=== PATIENT | female | born 1985 | race Caucasian/White ===

== ENCOUNTER 2019-12-10 11:26 | Outpatient (REF) | payer OTHER, SELFPAY | END 2019-12-10 11:27 | disposition home or self-care (01) | LOC: HO.LAB 11:26 | PROVIDERS: Visit Provider Internal Medicine | DX: Z20.828 Contact with and (suspected) exposure to other viral communicable diseases (principal) | CPT/HCPCS: U0003 ==

== ENCOUNTER 2020-02-16 15:18 | Outpatient (REF) | payer OTHER, SELFPAY | END 2020-02-16 15:19 | disposition home or self-care (01) | LOC: HO.LAB 15:18 | PROVIDERS: Visit Provider Internal Medicine | DX: Z20.828 Contact with and (suspected) exposure to other viral communicable diseases (principal) | CPT/HCPCS: 36415; C9803; U0003 ==

== ENCOUNTER 2020-05-02 08:09 | Outpatient (REF) | payer OTHER, SELFPAY | END 2020-05-02 08:10 | disposition home or self-care (01) | LOC: HO.LAB 08:09 | PROVIDERS: Visit Provider Internal Medicine | DX: Z20.822 Contact with and (suspected) exposure to COVID-19 (principal) | CPT/HCPCS: 36415; C9803; U0003; U0005 ==

== ENCOUNTER 2020-05-11 08:22 | Outpatient (REF) | payer OTHER, SELFPAY ==
[2020-05-11 12:37] LABS: SARS COV2 PCR INHOUSE POSITIVE (Negative)
== END 2020-05-11 08:23 | disposition home or self-care (01) ==
LOC: HO.LAB 08:22
PROVIDERS: Visit Provider Internal Medicine
DX: Z20.822 Contact with and (suspected) exposure to COVID-19 (principal)
CPT/HCPCS: C9803; U0003

== ENCOUNTER 2021-09-07 12:24 | Outpatient (REF) | payer OTHER, SELFPAY ==
--- NOTE | ~2021-09-07 | US_ITS ---
EXAMINATION: US ABDOMEN COMPLETE CLINICAL INFORMATION: Epigastric pain. COMPARISON: None TECHNIQUE: Real-time imaging of the abdominal viscera. FINDINGS: PANCREAS: Normal. ABDOMINAL AORTA: The proximal, mid, and distal segments are normal in caliber. INFERIOR VENA CAVA: Visualized portions are normal. LIVER: Increased echogenicity of the liver parenchyma which is otherwise normal in size and shape without discrete focal lesion. No intrahepatic biliary duct dilatation. GALLBLADDER: Normal. The gallbladder is physiologically distended without evidence of stones, sludge, polyps, wall thickening or pericholecystic fluid. COMMON BILE DUCT: Normal in caliber measuring 0.5 cm in diameter. RIGHT KIDNEY: Normal. No hydronephrosis. No renal calculi or focal parenchymal lesions. The kidney measures 10.9 cm in maximum dimension. LEFT KIDNEY: Normal. No hydronephrosis. No renal calculi or focal parenchymal lesions. The kidney measures 9.8 cm in maximum dimension. SPLEEN: Normal. The spleen measures 10.3 cm in maximum dimension. FREE FLUID: None. US/US abdomen complete IMPRESSION: Increased liver parenchymal echogenicity suggesting hepatic steatosis. Correlate with liver function tests.
== END 2021-09-07 12:25 | disposition home or self-care (01) ==
LOC: HO.US 12:24
PROVIDERS: PCP Family Medicine; Visit Provider Family Medicine
DX: R10.13 Epigastric pain (principal)
CPT/HCPCS: 76700

== ENCOUNTER 2021-09-18 13:47 | Emergency (ER) | payer OTHER, SELFPAY ==
--- NOTE | ~2021-09-18 | CT_ITS ---
EXAMINATION: CT ABDOMEN AND PELVIS WITHOUT CONTRAST CLINICAL INFORMATION: Lower abdominal pain. Rule out diverticular disease. COMPARISON: Abdominal ultrasound 09/07/2021 TECHNIQUE: Multidetector volumetric imaging was performed from the superior aspect of the liver through the pubic symphysis. Sagittal and coronal reformatted images were obtained on the technologist's workstation. This CT examination was performed using dose optimization techniques as appropriate, variously including the following: *Automated exposure control *Adjustment of mA and/or kV according to patient size (this includes techniques or standardized protocols for targeted exams where dose is matched to indication/reason for exam; i.e. extremities or head) *Use of iterative reconstruction technique DLP: 876 mGy-cm FINDINGS: Visualized bases are well aerated. The liver demonstrates normal size, contour and attenuation. The gallbladder is normal in appearance. The pancreas, spleen and adrenal glands are unremarkable. Symmetrically sized kidneys. No renal calculi or hydronephrosis bilaterally. Normal caliber loops of small and large bowel. Mild colonic stool burden. Normal appendix. Normal caliber abdominal aorta. No retroperitoneal lymphadenopathy. The bladder is normal in appearance. Unremarkable CT appearance of the uterus. Suspected 3.3 cm right adnexal cyst. No gross free pelvic fluid. No inguinal lymphadenopathy. No acute osseous abnormality. CT/CT abdomen pelvis wo con IMPRESSION: -No CT evidence for acute abnormality within the abdomen or pelvis. -3.3 cm right adnexal cyst. This may be further evaluated with dedicated pelvic ultrasound if clinically indicated. Fleischner guidelines were followed.
--- NOTE | ~2021-09-18 | US_ITS ---
EXAM: Pelvic Ultrasound CLINICAL INDICATION: Left lower quadrant pain. COMPARISON: CT abdomen pelvis earlier this evening TECHNIQUE: The pelvis was evaluated using transabdominal and transvaginal imaging. Color Doppler imaging and spectral analysis of the bilateral ovaries was also performed. FINDINGS: The uterus measures 9.0 x 4.4 x 5.3 cm in longitudinal by AP by transverse dimension. The endometrial stripe is not thickened and measures 0.9 cm. Trace amount of fluid within the endocervical canal. The left ovary measures approximately 3.3 x 2.8 x 1.5 cm and is normal. The right ovary measures approximately 4.0 x 2.5 x 2.8 cm and contains a simple appearing 1.9 cm cyst. Spectral analysis reveals normal arterial and venous waveforms in the bilateral ovaries. There is no free fluid in the pelvis. US/US pelvic ovarian doppler IMPRESSION: -Normal thickness endometrial stripe. -1.9 cm simple appearing right ovarian cyst.
--- NOTE | ~2021-09-18 | US_ITS ---
EXAM: Pelvic Ultrasound CLINICAL INDICATION: Left lower quadrant pain. COMPARISON: CT abdomen pelvis earlier this evening TECHNIQUE: The pelvis was evaluated using transabdominal and transvaginal imaging. Color Doppler imaging and spectral analysis of the bilateral ovaries was also performed. FINDINGS: The uterus measures 9.0 x 4.4 x 5.3 cm in longitudinal by AP by transverse dimension. The endometrial stripe is not thickened and measures 0.9 cm. Trace amount of fluid within the endocervical canal. The left ovary measures approximately 3.3 x 2.8 x 1.5 cm and is normal. The right ovary measures approximately 4.0 x 2.5 x 2.8 cm and contains a simple appearing 1.9 cm cyst. Spectral analysis reveals normal arterial and venous waveforms in the bilateral ovaries. There is no free fluid in the pelvis. US/US pelvic and transvaginal IMPRESSION: -Normal thickness endometrial stripe. -1.9 cm simple appearing right ovarian cyst.
[2021-09-18 14:59] VITALS: BP 131/69; PULSE 63; RESP 16; TEMP 35.6; O2SAT 100; BMI 35.4
[2021-09-18 15:21] LABS: MANUAL DIFF FLAG NO
[2021-09-18 15:22] LABS: Basophils Percent Auto 0.2 % (0-2); Eosinophils Absolute Auto 0.1 X10*3/uL (0.0-0.4); Eosinophils Percent Auto 1.3 % (0-4); Hematocrit 42.1 % (37.0-47.0); Hemoglobin 13.5 g/dl (12.0-16.0); Imm Gran Abs Auto 0.03 X10*3/uL (0.00-0.03); Imm Gran Pct Auto 0.3 % (0.0-0.4); Lymphocytes Absolute Auto 1.9 X10*3/uL (1.2-4.9); Lymphocytes Percent Auto 20.4 % (20-40); Mean Corpuscular HGB Conc 32.1 g/dl (31.0-35.0); Mean Corpuscular Hemoglobin 27.6 pg (27.0-33.0); Mean Corpuscular Volume 86.1 fL (80.0-98.0); Mean Platelet Volume 9.6 fL (9.4-12.3); Monocytes Absolute Auto 0.7 X10*3/uL (0.1-1.2); Monocytes Percent Auto 7.8 % (2-11); Neutrophils Absolute Auto 6.6 x10*3/uL (2.0-8.3); Platelet Count 236 X10*3/uL (160-400); Red Blood Count 4.89 X10*6/uL (4.20-5.50); Red Cell Distribution Width 12.6 % (11.0-16.0); White Blood Count 9.4 X10*3/uL (4.8-10.8)
[2021-09-18 15:44] LABS: Alanine Aminotransferase 12 U/L (0-31); Albumin Level 3.9 g/dL (3.5-5.0); Alkaline Phosphatase 76 U/L (39-117); Anion Gap 12 (12-20); Aspartate Amino Transferase 18 U/L (5-31); Bilirubin Direct < 0.2 mg/dL (0.0-0.5); Bilirubin Total 0.3 mg/dL (0.0-1.0); Blood Urea Nitrogen 15 mg/dL (9-16); Calcium 8.7 mg/dL (8.4-10.2); Carbon Dioxide 29 mmol/L (22-29); Chloride 104 mmol/L (96-108); Estimated Glomerular Filt Rate > 60; Glucose Random 89 mg/dL (60-115); Potassium 5.1 mmol/L (3.3-5.1); Sodium 140 mmol/L (135-145); Total Protein 6.8 g/dL (6.5-8.0)
--- NOTE | 2021-09-18 16:35 | ED.ABDPAIN ---
HPI - Abdominal Pain General Chief Complaint: Abdominal Pain Stated Complaint: Abd pain Time Seen by Provider: 09/18/21 16:34 Source: patient Mode of arrival: ambulatory Limitations: no limitations History of Present Illness HPI narrative: 35-year-old female came in for evaluation of abdominal pain. Left lower quadrant abdominal pain started 7-10 days ago pain is localized to the left lower quadrant, pain also radiates to the epigastric and the right upper quadrant area, pain has been constant, increased with movement or if the patient trying to feel her abdomen hurts, no relieving factor, pain is dull aching. No dysuria, no urinary frequency, no fever, no chills. No vaginal discharge or vaginal bleed, patient declined chance of being because had a history of tubal ligation. Abdominal surgery is significant for fibroid removal and tubal ligation. Patient had previous evaluation of this abdominal pain by her PCP and had outpatient ultrasound 10 days ago which was unremarkable except for possible hepatic steatosis. Related Data Previous Rx's Medication Instructions Recorded nitrofurantoin 100 mg PO BID #14 caps 09/18/21 monohydrate/macrocrystals 100 mg capsule (Macrobid) Allergies Allergy/AdvReac Type Severity Reaction Status Date / Time No Known Allergies Allergy Verified 09/18/21 14:56 Review of Systems Review of Systems All other systems are reviewed and are negative Constitutional: Reports as per HPI and Reports no additional constitutional complaints Eyes: Reports as per HPI and Reports no additional eye complaints Reports system reviewed and no additional complaints, except as documented Cardiovascular: Reports as per HPI and Reports no additional cardiovascular complaints Respiratory: Reports as per HPI and Reports no additional respiratory complaints Gastrointestinal: Reports as per HPI and Reports no additional gastrointestinal complaints Genitourinary: Reports no additional female genitourinary complaints Musculoskeletal: Reports no additional musculoskeletal complaints Skin/Breast: Reports system reviewed and no additional complaints, except as docu Psychiatric: Reports no additional psychiatric complaints Endocrine: Reports no additional endocrine complaints Hematologic/Lymphatic: Reports no additional hematologic/lymphatic complaints Allergic/Immunologic: Reports no additional allergic/immunologic complaints Reports system reviewed and no additional complaints, except as documented and Reports Abnormal speech present [facility] Social History Social History Advance Directives: No Advance Directives Information Provided: Yes Physical Exam ED Vital Signs: Vital Signs - 24 hr 09/18/21 14:59 09/18/21 20:15 Temperature 96.1 F L 98.1 F Pulse Rate 63 58 Respiratory Rate 16 20 Blood Pressure 131/69 121/71 Pulse Oximetry 100 100 Oxygen Delivery Method Room Air Room Air BMI result Body Mass Index 35.4 Vital signs have been reviewed as appeared to be correct. Blood pressure normal. Heart rate normal. Respiration rate normal. Temperature normal. Oxygen saturation normal. Appearance: Alert. Oriented X3. No acute distress. Head: Normal external exam. Normocephalic. Atraumatic. No [place] signs noted. No raccoon eyes noted Eyes: PERRLA. EOMI. Conjunctiva and sclera normal. Eyelids normal. ENT: TM's Normal. Pharynx normal. Uvula midline. Moist mucous membranes. No trismus noted. No drooling noted. No muffled voice noted. Neck: Normal inspection. Neck supple. FROM. No adenopathy. Thyroid Normal. No meningeal signs. No neck mass noted. CVS: Normal heart rate and rhythm. Heart sound normal. No murmurs noted. Pulses normal throughout. Respiratory: No respiratory distress. Painless inspiration. Breath sounds normal. No wheezes/rales/rhonchi noted. Chest nontender. No accessory muscle usage noted or decreased air movement noted. Abdomen: Soft, left lower quadrant tenderness on deep palpation with no guarding or rebound tenderness.. Bowel sounds normal in all 4 quadrants. No distention noted. No organomegaly noted. No visible injury noted. Back: No CVA tenderness. Full range of motion noted. Skin: Skin warm and dry. Normal skin color. Normal skin turgor. No rashes/lesions/lacerations noted. Extremities: No lower extremity edema. Extremities exhibit normal range of motion. Extremities nontender. Neuro: Oriented X 3. Cranial nerve exam: II-XII are grossly intact No motor deficit. No sensory deficit. Reflexes normal. Course Course Course Narrative: 35-year-old female came in for evaluation of left lower quadrant abdominal pain for 7-10 days, patient had CT of the abdomen pelvis which showed no acute intra-abdominal pathology ultrasound showed right very small cyst with good blood supply to both ovaries, labs only revealing mild UTI, will discharge the patient on Macrobid twice a day and encouraged to drink plenty of fluids. MDM - Abdominal Pain Lab Data Attestation: I reviewed the patient's lab results. Result diagrams: 09/18/21 15:13 09/18/21 15:13 Labs: Lab Results 09/18/21 09/18/21 09/18/21 Range/Units 15:13 15:13 17:46 WBC 9.4 (4.8-10.8) X10*3/uL RBC 4.89 (4.20-5.50) X10*6/uL Hgb 13.5 (12.0-16.0) g/dl Hct 42.1 (37.0-47.0) % MCV 86.1 (80.0-98.0) fL MCH 27.6 (27.0-33.0) pg MCHC 32.1 (31.0-35.0) g/dl RDW 12.6 (11.0-16.0) % Plt Count 236 (160-400) X10*3/uL MPV 9.6 (9.4-12.3) fL Immature Gran % (Auto) 0.3 (0.0-0.4) % Neut % (Auto) 70.0 (45-73) % Lymph % (Auto) 20.4 (20-40) % [place] % (Auto) 7.8 (2-11) % Eos % (Auto) 1.3 (0-4) % Baso % (Auto) 0.2 (0-2) % Lymph # (Auto) 1.9 (1.2-4.9) X10*3/uL [place] # (Auto) 0.7 (0.1-1.2) X10*3/uL Eos # (Auto) 0.1 (0.0-0.4) X10*3/uL Baso # (Auto) 0.0 (0.0-0.2) X10*3/uL Abs Immat Gran (auto) 0.03 (0.00-0.03) X10*3/uL Absolute Neuts (auto) 6.6 (2.0-8.3) x10*3/uL Absolute Nucleated RBC 0.000 (0.0-0.012) X10*3/uL Nucleated RBC % (auto) 0.0 (0.0-0.2) /100WBC Sodium 140 (135-145) mmol/L Potassium 5.1 (3.3-5.1) mmol/L Chloride 104 (96-108) mmol/L Carbon Dioxide 29 (22-29) mmol/L Anion Gap 12 (12-20) BUN 15 (9-16) mg/dL Creatinine 0.77 (0.5-1.4) mg/dL Estim Creat Clear Calc 108.0 Estimated GFR > 60 Random Glucose 89 (60-115) mg/dL Calcium 8.7 (8.4-10.2) mg/dL Total Bilirubin 0.3 (0.0-1.0) mg/dL Direct Bilirubin < 0.2 (0.0-0.5) mg/dL AST 18 (5-31) U/L ALT 12 (0-31) U/L Alkaline Phosphatase 76 (39-117) U/L Total Protein 6.8 (6.5-8.0) g/dL Albumin 3.9 (3.5-5.0) g/dL Urine Color YELLOW Urine Appearance CLOUDY Urine pH 6.5 (5.0-8.0) Ur Specific [place] 1.025 (1.005-1.025) Urine Protein TRACE (NEG-TRACE) MG/DL Urine Glucose (UA) NEG (NEG) MG/DL Urine Ketones NEG (NEG) MG/DL Urine Blood NEG (NEG) Urine Nitrite POS H (NEG) Ur Leukocyte Esterase 2+ H (NEG) Urine RBC 1-4 (0) /HPF Urine WBC 10-14 H (0-4) /HPF Urine WBC Clumps Present Ur Squamous Epith Cells 1+ /LPF Urine Bacteria 4+ /LPF Urine Mucus TRACE /LPF Urine Test (NEGATIVE) 09/18/21 Range/Units 17:46 WBC (4.8-10.8) X10*3/uL RBC (4.20-5.50) X10*6/uL Hgb (12.0-16.0) g/dl Hct (37.0-47.0) % MCV (80.0-98.0) fL MCH (27.0-33.0) pg MCHC (31.0-35.0) g/dl RDW (11.0-16.0) % Plt Count (160-400) X10*3/uL MPV (9.4-12.3) fL Immature Gran % (Auto) (0.0-0.4) % Neut % (Auto) (45-73) % Lymph % (Auto) (20-40) % [place] % (Auto) (2-11) % Eos % (Auto) (0-4) % Baso % (Auto) (0-2) % Lymph # (Auto) (1.2-4.9) X10*3/uL [place] # (Auto) (0.1-1.2) X10*3/uL Eos # (Auto) (0.0-0.4) X10*3/uL Baso # (Auto) (0.0-0.2) X10*3/uL Abs Immat Gran (auto) (0.00-0.03) X10*3/uL Absolute Neuts (auto) (2.0-8.3) x10*3/uL Absolute Nucleated RBC (0.0-0.012) X10*3/uL Nucleated RBC % (auto) (0.0-0.2) /100WBC Sodium (135-145) mmol/L Potassium (3.3-5.1) mmol/L Chloride (96-108) mmol/L Carbon Dioxide (22-29) mmol/L Anion Gap (12-20) BUN (9-16) mg/dL Creatinine (0.5-1.4) mg/dL Estim Creat Clear Calc Estimated GFR Random Glucose (60-115) mg/dL Calcium (8.4-10.2) mg/dL Total Bilirubin (0.0-1.0) mg/dL Direct Bilirubin (0.0-0.5) mg/dL AST (5-31) U/L ALT (0-31) U/L Alkaline Phosphatase (39-117) U/L Total Protein (6.5-8.0) g/dL Albumin (3.5-5.0) g/dL Urine Color Urine Appearance Urine pH (5.0-8.0) Ur Specific [place] (1.005-1.025) Urine Protein (NEG-TRACE) MG/DL Urine Glucose (UA) (NEG) MG/DL Urine Ketones (NEG) MG/DL Urine Blood (NEG) Urine Nitrite (NEG) Ur Leukocyte Esterase (NEG) Urine RBC (0) /HPF Urine WBC (0-4) /HPF Urine WBC Clumps Ur Squamous Epith Cells /LPF Urine Bacteria /LPF Urine Mucus /LPF Urine Test NEGATIVE (NEGATIVE) Imaging Data Abdomen CT: Attestation: I personally reviewed and interpreted this imaging study as follows: Radiologist's impression: -No CT evidence for acute abnormality within the abdomen or pelvis. -3.3 cm right adnexal cyst. This may be further evaluated with dedicated pelvic ultrasound if clinically indicated.? ? Ovarian ultrasound: Attestation: I personally reviewed and interpreted this imaging study as follows: Radiologist's impression: -Normal thickness endometrial stripe. -1.9 cm simple appearing right ovarian cyst. ? Discharge Plan Discharge Clinical Impression: UTI (urinary tract infection), Abdominal pain, Ovarian cyst Patient Disposition: Home, Self-Care Instructions: Ovarian Cyst (ED), Urinary Tract Infection in Women (ED) Prescriptions: New nitrofurantoin monohyd/m-cryst [Macrobid] 100 mg capsule 100 mg PO BID Qty: 14 0RF Rx Instructions: must administer with a meal/food Referrals: Maisha White DO [Primary Care Provider] -
[2021-09-18 17:54] LABS: UPreg QC Valid YES; Urine Pregnancy NEGATIVE (NEGATIVE)
[2021-09-18 17:57] LABS: Appearance Urine CLOUDY; Color Urine YELLOW; Glucose Urine UA NEG (NEG); Leukocyte Esterase Urine 2+ (NEG); Nitrite Urine POS (NEG); PH 6.5 (5.0-8.0); Specific Gravity - Urine 1.025 (1.005-1.025); UACC Culture Trigger YES; Urine Blood NEG (NEG); Urine Ketones NEG (NEG); Urine Protein TRACE MG/DL (NEG-TRACE)
[2021-09-18 18:16] LABS: Bacteria Urine 4+ /LPF; Mucus Urine TRACE /LPF; Squamous Epithelial Cell Urine 1+ /LPF; WBC Clumps Urine Present
[2021-09-18 20:15] VITALS: BP 121/71; PULSE 58; RESP 20; TEMP 36.7; O2SAT 100
[2021-09-18] MEDS: Nitrofurantoin Monohyd/M-Cryst 100 MG CAPSULE PO (21:44)
--- NOTE | 2021-09-18 21:47 | PC.NURSE ---
Medicated per Apr. Reviewed discharge instructions with Pt. pt verbalized understanding. Notified pt TEJA Alonzo.
== END 2021-09-18 21:49 | disposition home or self-care (01) ==
PROVIDERS: Emergency Provider Emergency Medicine; PCP Family Medicine
DX: N39.0 Urinary tract infection, site not specified (principal); B96.20 Unspecified Escherichia coli [E. coli] as the cause of diseases classified elsewhere; N83.201 Unspecified ovarian cyst, right side; R10.32 Left lower quadrant pain
CPT/HCPCS: 36415; 74176; 76830; 76856; 80048; 80076; 81001; 81025; 85025; 87086; 87088; 87186; 93975; 99283; 99284

== ENCOUNTER 2022-08-26 11:36 | Outpatient (AMB) | payer MEDICAID, SELFPAY ==
--- NOTE | 2022-08-26 11:49 | A.OFFVIS_ITS ---
Intake Vital Signs 08/26/22 11:52 Height 5 ft 3 in Weight 214 lb BMI 37.9 BP 109/62 Blood Pressure Location Lt brachial Position Sitting Pulse 65 Intake Visit Reasons: Epigastric pain Intake Note: Patient follow up for epigastric pain. Patient cc: abdominal pain/bloating, GERD, and dysphagia on and off. 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 Accompanied by: Self / Same As Patient Allergies No Known Allergies Allergy (Verified 08/26/22 11:49) Medication List - Last Reconciled 08/26/22 by Mireille Lockett PA-C HPI HPI Comments History of Present Illness Details A 36 y/o female with history ulcer--hx h.pylori- EGD many years ago- she has epigastric pain intermittently,- bloating acid reflux- Pepcid- not effective-in nothing specific makes it better or worse-of frequent n ausea for the past couple months Belching, appetite is good no nausea or vomiting Bowels are normal Feels something moving in belly- had a TL years ago LMP 06/2022-have been irregular No nausea, vomiting, hematemesis, hematochezia fever chills PFSH Surgical History Hx of removal of cyst Hx of tubal ligation Family History Father Cancer Paternal Aunt Cancer Paternal Grandmother Cancer of abdominal wall Mother Uterus cancer Abdominal tumor Social History (Updated 08/26/22 @ 12:11 by Mireille Lockett PA-C) Household Members: Family Alcohol intake: current Alcohol intake frequency: holidays/special occasions only Patient Tobacco Use Status: Never used Tobacco Use of substances other than those prescribed or required for medical reasons: No 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 occupational 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 Review of Systems Const All systems reviewed & are unremarkable except as noted in HPI and below Card Denies chest pain and Denies dyspnea Resp Denies dyspnea GI Reports abdominal pain (epigastric ), Reports belching, Reports bloating, Denies hematochezia, Denies change in bowel habits, Reports dyspepsia, Reports nausea and Denies vomiting Reports abnormal menses Physical Exam Vital Signs: Last Vital Signs Pulse 65 08/26/22 11:52 BP 109/62 08/26/22 11:52 BMI result Body Mass Index 37.9 Const General: cooperative, healthy appearing and no acute distress Nutritional Appearance: overweight Orientation/consciousness: patient oriented x3 Limitations: no limitations Eyes Sclerae: sclerae normal Resp Effort & Inspection: normal respiratory effort and able to speak in complete sentences Auscultation: clear to auscultation bilaterally and no wheezes Cardio Rate: regular rate Rhythm: regular rhythm Heart sounds: S1 normal heart sound present and S2 normal heart sound present GI Palpation (GI): Soft to palpation and nontender Auscultation: normal bowel sounds Neuro General: patient oriented x3 Psych Appearance: grossly normal and well kempt Mental Status: mental status grossly normal Speech and movement: Normal speech and movement present and Clear speech present Affect: normal affect Attitude: cooperative Thought process: Normal thought process present Thought content: Normal thought content present Results Reviewed Results Reviewed: No recent labs Assessment & Plan Assessment & Plan (1) Epigastric abdominal pain: Comment: Nontender on exam CBC, CMP Code(s): R10.13 - Epigastric pain (2) Bloating: Comment: Check H pylori Code(s): R14.0 - Abdominal distension (gaseous) Plan: FODMAP (3) Missed menses: Comment: HCG, less likely has had tubal Code(s): N92.6 - Irregular menstruation, unspecified Plan H pylori stool antigen-if positive will treat After sample submitted begin omeprazole 20 mg daily Reflux precautions reviewed CBC CMP to assess for white count and liver enzymes HCG, low yield Orders: Orders Comprehensive Met. Panel 08/26/22 K58.9 - Irritable bowel syndrome without diarrhea Complete Blood Count Auto Diff 08/26/22 K52.9 - Noninfective gastroenteritis and colitis, unspecified H pylori Ag Stool 08/26/22 A04.8 - Other specified bacterial intestinal infections HCG Quantitative 08/26/22 N92.6 - Irregular menstruation, unspecified, R10.13 - Epigastric pain, R11.0 - Nausea Medications: New omeprazole 20 mg PO DAILY 30 caps 5RF Patient Instructions: H pylori stool antigen-if positive will treat After sample submitted begin omeprazole 20 mg daily Reflux precautions reviewed CBC CMP to assess for white count and liver enzymes HCG, low yield He encouraged to call with questions or concerns Appreciate the opportunity to assist in the care of the patient Coding Level of Care Code New Pt Level 3 (95052) Diagnoses Epigastric abdominal pain R10.13 Bloating R14.0 Missed menses N92.6 Time Spent (min) 30
[2022-08-26 11:52] VITALS: BP 109/62; PULSE 65; BMI 37.9
== END 2022-08-26 13:00 | disposition home or self-care (01) ==
PROVIDERS: PCP Internal Medicine; Visit Provider Physician Assistant
DX: R10.13 Epigastric pain (principal); R14.0 Abdominal distension (gaseous); N92.6 Irregular menstruation, unspecified
CPT/HCPCS: 99203

== ENCOUNTER → 2022-08-26 11:36 | Outpatient (BNVA) | payer MEDICAID, SELFPAY | PROVIDERS: PCP Internal Medicine; Visit Provider Physician Assistant | DX: R10.13 Epigastric pain (principal); R14.0 Abdominal distension (gaseous); N92.6 Irregular menstruation, unspecified | CPT/HCPCS: 99203 ==

== ENCOUNTER 2022-08-29 10:20 | Outpatient (REF) | payer MEDICAID, SELFPAY ==
[2022-08-29 10:32] LABS: MANUAL DIFF FLAG NO
[2022-08-29 10:52] LABS: Basophils Percent Auto 0.3 % (0-2); Eosinophils Absolute Auto 0.1 X10*3/uL (0.0-0.4); Hematocrit 44.5 % (37.0-47.0); Hemoglobin 14.4 g/dl (12.0-16.0); Imm Gran Abs Auto 0.02 X10*3/uL (0.00-0.03); Imm Gran Pct Auto 0.3 % (0.0-0.4); Lymphocytes Absolute Auto 1.6 X10*3/uL (1.2-4.9); Lymphocytes Percent Auto 22.3 % (20-40); Mean Corpuscular HGB Conc 32.4 g/dl (31.0-35.0); Mean Corpuscular Hemoglobin 27.9 pg (27.0-33.0); Mean Corpuscular Volume 86.2 fL (80.0-98.0); Mean Platelet Volume 9.6 fL (9.4-12.3); Monocytes Absolute Auto 0.6 X10*3/uL (0.1-1.2); Monocytes Percent Auto 8.6 % (2-11); Neutrophils Absolute Auto 4.9 x10*3/uL (2.0-8.3); Neutrophils Percent Auto 67.5 % (45-73); Platelet Count 245 X10*3/uL (160-400); Red Blood Count 5.16 X10*6/uL (4.20-5.50); Red Cell Distribution Width 12.2 % (11.0-16.0); White Blood Count 7.3 X10*3/uL (4.8-10.8)
[2022-08-29 14:00] LABS: Alanine Aminotransferase 12 U/L (0-31); Albumin Level 3.9 g/dL (3.5-5.0); Alkaline Phosphatase 65 U/L (39-117); Anion Gap 13 (12-20); Aspartate Amino Transferase 16 U/L (5-31); Bilirubin Total 0.5 mg/dL (0.0-1.0); Blood Urea Nitrogen 14 mg/dL (9-16); Calcium 9.5 mg/dL (8.4-10.2); Carbon Dioxide 25 mmol/L (22-29); Chloride 103 mmol/L (96-108); Estimated Glomerular Filt Rate > 60; Glucose Random 85 mg/dL (60-115); Sodium 137 mmol/L (135-145); Total Protein 7.2 g/dL (6.5-8.0)
[2022-08-29 16:01] LABS: HCG Quantitative < 2 mIU/mL
== END 2022-08-29 10:21 | disposition home or self-care (01) ==
LOC: HO.LAB 10:20
PROVIDERS: Visit Provider Physician Assistant
DX: R10.13 Epigastric pain (principal); N92.6 Irregular menstruation, unspecified; R11.0 Nausea; K52.9 Noninfective gastroenteritis and colitis, unspecified
CPT/HCPCS: 36415; 80053; 84702; 85025

== ENCOUNTER 2022-09-04 11:56 | Emergency (ER) | payer MEDICAID, SELFPAY ==
[2022-09-04 12:00] VITALS: BP 145/85; PULSE 78; RESP 18; TEMP 36.6; O2SAT 98; BMI 33.7
--- NOTE | 2022-09-04 12:00 | ED.FEMALEGU ---
HPI - Female Genitourinary General Chief complaint: Vaginal Bleeding Stated complaint: vaginal discharge is black Related Data Previous Rx's Medication Instructions Recorded omeprazole 20 mg capsule,delayed 20 mg PO DAILY #30 caps 08/26/22 release Allergies Allergy/AdvReac Type Severity Reaction Status Date / Time No Known Allergies Allergy Verified 09/04/22 12:00 [facility] [place] Past Medical History Surgical History Hx of removal of cyst Hx of tubal ligation Family History Family History Father Cancer Paternal Aunt Cancer Paternal Grandmother Cancer of abdominal wall Mother Uterus cancer Abdominal tumor Social History Social History (Updated 08/26/22 @ 12:11 by Mireille Lockett PA-C) Household Members: Family Alcohol intake: current Alcohol intake frequency: holidays/special occasions only Patient Tobacco Use Status: Never used Tobacco Advance Directives: No Advance Directives Information Provided: No Current occupational status: employed 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 Called her [facility] at [facility] who told her to come to the ER for evaluation. Plan: basic labs, UA and exam in the ER Reevaluation(s) Reevaluation #1: patient eloped prior to full evaluation and treatment Medical Decision Making Lab Data 09/04/22 13:59 09/04/22 13:59 Labs: Lab Results 09/04/22 09/04/22 Range/Units 13:59 13:59 WBC 8.8 (4.8-10.8) X10*3/uL RBC 5.09 (4.20-5.50) X10*6/uL Hgb 14.4 (12.0-16.0) g/dl Hct 45.0 (37.0-47.0) % MCV 88.4 (80.0-98.0) fL MCH 28.3 (27.0-33.0) pg MCHC 32.0 (31.0-35.0) g/dl RDW 12.1 (11.0-16.0) % Plt Count 256 (160-400) X10*3/uL MPV 9.5 (9.4-12.3) fL Immature Gran % (Auto) 0.3 (0.0-0.4) % Neut % (Auto) 66.3 (45-73) % Lymph % (Auto) 24.4 (20-40) % [place] % (Auto) 7.4 (2-11) % Eos % (Auto) 1.4 (0-4) % Baso % (Auto) 0.2 (0-2) % Lymph # (Auto) 2.1 (1.2-4.9) X10*3/uL [place] # (Auto) 0.7 (0.1-1.2) X10*3/uL Eos # (Auto) 0.1 (0.0-0.4) X10*3/uL Baso # (Auto) 0.0 (0.0-0.2) X10*3/uL Abs Immat Gran (auto) 0.03 (0.00-0.03) X10*3/uL Absolute Neuts (auto) 5.8 (2.0-8.3) x10*3/uL Absolute Nucleated RBC 0.000 (0.0-0.012) X10*3/uL Nucleated RBC % (auto) 0.0 (0.0-0.2) /100WBC Sodium 143 (135-145) mmol/L Potassium 4.7 (3.3-5.1) mmol/L Chloride 108 (96-108) mmol/L Carbon Dioxide 31 H (22-29) mmol/L Anion Gap 9 L (12-20) BUN 13 (9-16) mg/dL Creatinine 0.86 (0.5-1.4) mg/dL Estim Creat Clear Calc 93.2 Estimated GFR > 60 Random Glucose 93 (60-115) mg/dL Calcium 8.9 D (8.4-10.2) mg/dL Magnesium 2.1 (1.6-2.6) mg/dL Total Bilirubin 0.3 (0.0-1.0) mg/dL Direct Bilirubin 0.1 (0.0-0.5) mg/dL AST 17 (5-31) U/L ALT 13 (0-31) U/L Alkaline Phosphatase 71 (39-117) U/L Total Protein 7.1 (6.5-8.0) g/dL Albumin 3.8 (3.5-5.0) g/dL Discharge Plan Discharge Clinical Impression: Vaginal bleeding Patient Disposition: Elopement Prescriptions: No Action omeprazole 20 mg capsule,delayed release(DR/EC) 20 mg PO DAILY Qty: 30 5RF Discharge Date/Time: 09/04/22 18:09
[2022-09-04 14:04] LABS: MANUAL DIFF FLAG NO
[2022-09-04 14:09] LABS: Basophils Percent Auto 0.2 % (0-2); Eosinophils Absolute Auto 0.1 X10*3/uL (0.0-0.4); Eosinophils Percent Auto 1.4 % (0-4); Hemoglobin 14.4 g/dl (12.0-16.0); Imm Gran Abs Auto 0.03 X10*3/uL (0.00-0.03); Imm Gran Pct Auto 0.3 % (0.0-0.4); Lymphocytes Absolute Auto 2.1 X10*3/uL (1.2-4.9); Lymphocytes Percent Auto 24.4 % (20-40); Mean Corpuscular Hemoglobin 28.3 pg (27.0-33.0); Mean Corpuscular Volume 88.4 fL (80.0-98.0); Mean Platelet Volume 9.5 fL (9.4-12.3); Monocytes Absolute Auto 0.7 X10*3/uL (0.1-1.2); Monocytes Percent Auto 7.4 % (2-11); Neutrophils Absolute Auto 5.8 x10*3/uL (2.0-8.3); Neutrophils Percent Auto 66.3 % (45-73); Platelet Count 256 X10*3/uL (160-400); Red Blood Count 5.09 X10*6/uL (4.20-5.50); Red Cell Distribution Width 12.1 % (11.0-16.0); White Blood Count 8.8 X10*3/uL (4.8-10.8)
[2022-09-04 14:25] LABS: Alanine Aminotransferase 13 U/L (0-31); Albumin Level 3.8 g/dL (3.5-5.0); Alkaline Phosphatase 71 U/L (39-117); Anion Gap 9 (12-20); Aspartate Amino Transferase 17 U/L (5-31); Bilirubin Direct 0.1 mg/dL (0.0-0.5); Bilirubin Total 0.3 mg/dL (0.0-1.0); Blood Urea Nitrogen 13 mg/dL (9-16); Calcium 8.9 mg/dL (8.4-10.2); Carbon Dioxide 31 mmol/L (22-29); Chloride 108 mmol/L (96-108); Creatinine Clr Calc Pharmacy 93.2; Estimated Glomerular Filt Rate > 60; Glucose Random 93 mg/dL (60-115); Magnesium 2.1 mg/dL (1.6-2.6); Potassium 4.7 mmol/L (3.3-5.1); Sodium 143 mmol/L (135-145); Total Protein 7.1 g/dL (6.5-8.0)
== END 2022-09-04 18:09 | disposition left against medical advice (07) ==
LOC: HO.ED 18:06
PROVIDERS: Physician Assistant; Emergency Provider Emergency Medicine
DX: N93.9 Abnormal uterine and vaginal bleeding, unspecified (principal); R10.9 Unspecified abdominal pain
CPT/HCPCS: 36415; 80048; 80076; 83735; 85025; 99281; 99283

== ENCOUNTER 2022-12-30 09:40 | Emergency (ER) | payer MEDICAID, SELFPAY ==
[2022-12-30 10:04] VITALS: BP 146/103; PULSE 68; RESP 18; TEMP 36.4; O2SAT 99; BMI 33.7
--- NOTE | 2022-12-30 11:03 | ED_ITS ---
HPI - URI/Sore Throat General Chief Complaint: Upper Respiratory Symptoms Stated Complaint: sore throat ear pain chest congestion Time Seen by Provider: 12/30/22 10:23 Source: patient Mode of arrival: ambulatory Limitations: no limitations History of Present Illness HPI Narrative: 37-year-old female with a history of asthma presents today for evaluation of 4 days of sore throat. She denies fevers, chills, headaches, GI upset. She reports a cough without sputum and associated anterior wall chest tenderness. She reports shortness of breath through which she is using albuterol rescue inhaler and a nebulizer with good affect. No chest pain or palpitations at rest. No lightheadedness syncope or visual changes. 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 Pertinent past history: asthma Onset (ago): day(s) Consistency: constant Severity: moderate Exacerbating factors: swallowing Context: sick contacts Related Data Previous Rx's Medication Instructions Recorded omeprazole 20 mg capsule,delayed 20 mg PO DAILY #30 caps 08/26/22 release Magic Mouthwash 5 ml PO TID #240 mL 12/30/22 Diphen/Lido/Antacid 1:1:1 240 mL suspension albuterol sulfate 90 mcg/actuation 2 inh inhalation Q4-6H PRN 12/30/22 breath activated powder inhaler shortness of breath or wheezing #1 ea fluticasone propionate 50 1 spray intranasal DAILY #16 grams 12/30/22 mcg/actuation nasal spray,suspension (Flonase Allergy Relief) prednisone 20 mg tablet 40 mg (2 x 20 mg) PO DAILY 5 days 12/30/22 #10 tabs Allergies Allergy/AdvReac Type Severity Reaction Status Date / Time No Known Allergies Allergy Verified 12/30/22 10:04 Review of Systems Review of Systems: Constitutional : No Weight loss, No Fever, No Chills, No Fatigue, No Malaise ENT/Mouth : + sore throat, No Rhinorrhea Eyes: No Eye Pain, No Swelling, No Redness Cardiovascular : + anterior Chest Pain with cough-- no chest pain at rest or with exertion. + SOB, No Dyspnea on Exertion, No Orthopnea, No Edema, No Palpitations Respiratory : +Cough, No Sputum, No Wheezing Gastrointestinal : No Nausea, No Vomiting, No Diarrhea, No Constipation, No abdominal Pain, No Hematochezia, No Melena Genitourinary : No Dysuria, No Urinary Frequency, No Hematuria, Musculoskeletal : No joint pain, No Myalgias, No Joint Swelling Skin : No Skin Lesions, No rash Neuro : No Weakness, No Numbness, No Dizziness, No Headache All other systems reviewed and are negative Yes all other systems are reviewed and are negative [facility] Past Medical History Attestation statement: The following information was validated with the patient. 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 Oriented X3.? No acute distress.? Head: Normocephalic, atraumatic, no step-offs or deformities Eyes: Pupils equal, round and reactive to light.? ENT: + White exudate overlying oropharynx.??External ears normal, TMs normal bilaterally and EAC's normal. No pain with manipulation of external ears bilaterally. No mastoid tenderness. Neck: +Tender anterior lymphadenopathy.? CVS: Normal heart rate and rhythm.? Pulses normal.?+Tenderness to palpation of the anterior chest wall. Respiratory: No respiratory distress.? Breath sounds normal.? Abdomen: Soft and nontender.? Skin: Skin warm and dry.? Normal skin color.? Normal skin turgor.? Extremities: No lower extremity edema.? No calf ttp. 5/5 strength to bilateral upper and lower extremities Const: General: well developed, alert and awake Course Reevaluation(s) Reevaluation #1: Patient tested positive for COVID-19. Will discharge home with supportive measures. No true indication for antiviral med I did offer it to her however opted out. Educated patient on diagnosis and treatment plan, answered all question, patient verbalizes understanding. At this time patient will be discharged home, advised to return with new or worsening symptoms. Educated on worrisome signs and symptoms and when to return. At this time I feel comfortable discharge home. Time: 11:29 Medical Decision Making Medical Decision Making [facility] Narrative: 37-year-old female with past medical history of asthma reports today for evaluation of 4 days of sore throat and dry cough with anterior wall chest discomfort. She denies fevers, chills, diarrhea, nausea, and vomiting. She reports shortness of breath well-controlled with her albuterol. Physical exam revealed white exudate overlying the oropharynx, tender cervical lymphadenopathy, and tenderness to palpation of the anterior chest wall. Lungs clear to auscultation without wheeze. Covid, flu, and strep pending. Likely strep pharyngitis vs mononucleosis vs acute pharyngitis secondary to other viral etiology. Unlikely asthma exacerbation, myocardial infarction, pulmonary embolism, anaphylaxis, retropharyngeal/ peritonsillar abscess. Differential Diagnosis Differential Diagnoses: The differential diagnosis associated with the presentation includes Likely strep pharyngitis vs mononucleosis vs acute pharyngitis secondary to other viral etiology. Unlikely acute asthma exacerbation, myocardial infarction, pulmonary embolism, anaphylaxis retropharyngeal/ peritonsillar abscess. Admission/Observation Consideration of admission/observation: Escalation of care including admission/observation considered unlikely Lab Data [facility] Lab Attestation statement: I reviewed the patient's lab results. Labs: Lab Results 12/30/22 Range/Units 11:02 COVID-19 ([facility]) Positive A (Negative) COVID-19 Clin Com See Note Influenza Type A ([facility]) Negative (Negative) Influenza Type B ([facility]) Negative (Negative) Influenza A & B Note See Note S. pyogenes GrpA [facility] Negative (Negative) Prescription Management I considered prescription management with: Other (prednisone, magic mouthwash) Discharge Plan Discharge Clinical Impression: COVID-19 Patient Disposition: Home, Self-Care Instructions: COVID-19 (Coronavirus Disease 2019) (ED) Additional Instructions: Take your medications as prescribed. If you were prescribed antibiotics today, it is important that you take your medication to their entirety, do not skip any doses, do not finish them early. Today you tested positive for COVID-19. Take Ibuprofen or Tylenol as needed for fevers or body aches. Quarantine for 5 days and ensure you wear a mask. After 5 days you should wear a mask for 5 days after that. Practice social distancing and good hand hygiene. Drink plenty of fluids. Follow-up with your primary care provider this week. Return to the emergency department with new or worsening symptoms. In case of emergency call 911 You can purchase a pulse oximeter from your local pharmacy or grocery store, and monitor your oxygen saturation if it goes below 94% you should return to the emergency department for further evaluation. Prescriptions: New prednisone 20 mg tablet 40 mg PO DAILY 5 Days Qty: 10 0RF fluticasone propionate [Flonase Allergy Relief] 50 mcg/actuation spray,suspension 1 spray intranasal DAILY Qty: 16 0RF Rx Instructions: administer into each nostril albuterol sulfate 90 mcg/actuation aerosol powdr breath activated 2 inh inhalation Q4-6H PRN (Reason: shortness of breath or wheezing) Qty: 1 0RF Magic Mouthwash Diphen/Lido/Antacid 1:1:1 240 mL suspension 5 ml PO TID Qty: 240 0RF Rx Instructions: Lidocaine Viscous 2 % 80mL; diphenhydramine 12.5 mg/5 mL 80mL; aluminum-mag hydrox-simeth 658bt-239sv-10pc/5mL 80mL Swish and spit, do not swallow No Action omeprazole 20 mg capsule,delayed release(DR/EC) 20 mg PO DAILY Qty: 30 5RF Referrals: Physician,Unknown J [Primary Care Provider] - 2 days Stand Alone Forms: Work/School Release
[2022-12-30 11:21] LABS: IDNOW Serial# 58CA691E
[2022-12-30 11:22] LABS: Strep A Nucleic Acid Negative (Negative)
[2022-12-30 11:24] LABS: COVID-19 Test Positive (Negative); IDNOW Serial# 6674DD1D
[2022-12-30 11:27] LABS: IDNOW Serial# 9DB6401D; Influenza A Negative (Negative); Influenza B2 Negative (Negative)
[2022-12-30 11:34] VITALS: BP 133/85; PULSE 66; RESP 18; TEMP 36.4; O2SAT 98
== END 2022-12-30 11:41 | disposition home or self-care (01) ==
PROVIDERS: Physician Assistant; Emergency Provider Emergency Medicine
DX: U07.1 COVID-19 (principal)
CPT/HCPCS: 87502; 87635; 87651; 99282; 99283

== ENCOUNTER 2024-06-04 10:15 | Outpatient (REF) | payer MEDICAID, SELFPAY ==
--- OUTSIDE RECORDS SUMMARY | 2024-06-04 10:41 | XMS_ITS | Encounter Summary ---
Author Organization [employer] Address [address] [facility] [address] [facility] [address] [place] [address] Care Team Providers Care Section Beamer Name Role Phone Nuzhat Shelton Primary Care Provider [phone] Reason for Visit * Reason Onset Date Comments CHART PREP 06/03/2024 Encounter Details Date Type Department Care Team (Late st Contact Info) Description 06/03/2024 Telephone [facility] MEDICINE [address] [place] [address] Paxton Redmond [place] CHART PREP Social History Tobacco Use Types Packs/Day Years Used Date Smoking Tobacco: Never Smokeless Tobacco: Never Alcohol Use Standard Drinks/Week Comments Yes 0 (1 standard drink = 0.6 oz pur e alcohol) Depression Answer Date Recorded Patient Health Questionnaire-9 Score 12 05/24/2022 Housing Stability Answer Date Recorded What is your housing situation today? I do not have housing (Staying with others, in a hotel, in a halfway, living outside on the street, on a beach, in a car, or in a park 05/27/[address] you li ve. Do you have problems with any of the following? None of the above 05/27/2024 Food Insecurity Answer Date Recorded Within the past 12 months, y ou worried that your food would run out before you got money to buy more: Never True 05/27/2024 Within the past 12 months,th e food you bought just didn't last and you didn't have enough money to get more: Never True Transportation Answer Date Recorded In the past 12 months, has l ack of transportation kept you from medical appts, meetings, work or from getting things needed for daily living? No 05/27/2024 Utilities Answer Date Recorded In the past 12 months, has t he [employer], [employer], oil or water company threatened to shut off services in your home? No 05/27/2024 Depression Answer Date Recorded Patient Health Questionnaire-2 Score 3 05/24/2022 Internet Access Answer Date Recorded Internet Access Q1 Yes 05/27/2024 Internet Access Q2 Not on file 05/27/2024 Comments No Sex and Gender Information Value Date Recorded Sex Assigned at Female 12/10/2021 10:17 AM EDT Legal Sex Female 10:17 AM EDT Gender Identity Female 12/10/2021 10:17 AM EDT Sexual Orientation Choose not to disclose 2021 10:17 AM EDT documented as of this encounter Miscellaneous Notes * Telephone Encounter - Paxton Redmond MA - 06/03/2024 3:25 PM EDT ..Chart Prep Labs: not applicable Images: not applicable Vaccines due: Flu Due Referrals: Not Applicable Screenings: PAP Overdue care gaps: Sbirt, GAD7, and Disability documented in this encounter Plan of Treatment Not on file documented as of this encounter Visit Diagnoses Not on filedocumented in this encounter Additional Health Concerns Assessment Noted Time PHQ-9 Depression Total Score: 12 023 10:59 AM EDT documented as of this encounter Care Teams Section Beamer Relationship Specialty Start Date End Date Nuzhat Shelton ANP [address] [place] [address] PCP - General Family Medicine 04/08/22 documented as of this encounter
--- OUTSIDE RECORDS SUMMARY | 2024-06-04 10:41 | XMS_ITS | Encounter Summary ---
Author Organization [employer] Address [address] [facility] [address] [place] [address] Care Team Providers Care Local Combination Truck Driver Name Role Phone Nuzhat Shelton Primary Care Provider [phone] Reason for Visit * Reason Onset Date Comments Medication Question 05/14/2024 Encounter Details Date Type Department Care Team ([facility] st Contact Info) Description 05/14/2024 Telephone [facility] MEDICINE [address] [place] [address] Nuzhat Shelton ANP [address] [place] [address] Medication Question Social History Tobacco Use Types Packs/Day Years Used Date Smoking Tobacco: Never Smokeless Tobacco: Never Alcohol Use Standard Drinks/Week Comments Yes 0 (1 standard drink = 0.6 oz pur e alcohol) Depression Answer Date Recorded Patient Health Questionnaire-9 Score 12 05/24/2022 Housing Stability Answer Date Recorded What is your housing situation today? I have [place] dhillon 11/25/[address] you li ve. Do you have problems with any of the following? None of the above 11/25/2022 Food Insecurity Answer Date Recorded Within the past 12 months, y ou worried that your food would run out before you got money to buy more: Never True 11/25/2022 Within the past 12 months,th e food you bought just didn't last and you didn't have enough money to get more: Never True Transportation Answer Date Recorded In the past 12 months, has l ack of transportation kept you from medical appts, meetings, work or from getting things needed for daily living? No 11/25/2022 Utilities Answer Date Recorded In the past 12 months, has t he electric, gas, oil or water company threatened to shut off services in your home? No 11/25/2022 Depression Answer Date Recorded Patient Health Questionnaire-2 Score 3 05/24/2022 Comments No Sex and Gender Information Value Date Recorded Sex Assigned at Female 12/10/2021 10:17 AM EDT Legal Sex Female 10:17 AM EDT Gender Identity Female 12/10/2021 10:17 AM EDT Sexual Orientation Choose not to disclose 2021 10:17 AM EDT documented as of this encounter Miscellaneous Notes * Telephone Encounter - Concha Dang - 05/14/2024 10:33 AM EDT Tc from pt requesting information on medication Zepbound due to not feeling herself and will like to loose weight. Please return call [phone] documented in this encounter Plan of Treatment Not on file documented as of this encounter Visit Diagnoses Not on filedocumented in this encounter Additional Health Concerns Assessment Noted Time PHQ-9 Depression Total Score: 12 023 10:59 AM EDT documented as of this encounter Care Teams Local Combination Truck Driver Relationship Specialty Start Date End Date Nuzhat Shelton ANP [address] [place] [address] PCP - General Family Medicine 04/08/22 documented as of this encounter
--- OUTSIDE RECORDS SUMMARY | 2024-06-04 10:41 | XMS_ITS | Encounter Summary ---
Author Organization [employer] Address [address] [facility] [address] [place] [address] Care Team Providers Care Alpine Guide Name Role Phone Nuzhat Shelton Primary Care Provider [phone] Reason for Referral * Imaging (Routine) - Pending Review Specialty Diagnoses / Procedures Referred By Contac t Referred To Contact Radiology Diagnoses Enlarged thyroid Procedures US Thyroid Nuzhat Shelton ANP [address] [place] [address] Phone: tel: fax: Referral ID Status Reason Start Date Expiration Date V isits Requested Visits Authorized [id number] Pending Review 06/04/2024 06/04/2025 1 1 * Imaging (Routine) - Pending Review Specialty Diagnoses / Procedures Referred By Contac t Referred To Contact Radiology Diagnoses Irregular menses Procedures US Pelvis Transvaginal Nuzhat Shelton ANP [address] [place] [address] Phone: tel: fax: Referral ID Status Reason Start Date Expiration Date V isits Requested Visits Authorized [id number] Pending Review 06/04/2024 06/04/2025 1 1 * Imaging (Routine) - Pending Review Specialty Diagnoses / Procedures Referred By Contac t Referred To Contact Radiology Diagnoses Irregular menses Procedures Us Pelvis complete Nuzhat Shelton ANP [address] [place] [address] Phone: tel: fax: Referral ID Status Reason Start Date Expiration Date V isits Requested Visits Authorized [id number] Pending Review 06/04/2024 06/04/2025 1 1 Encounter Details Date Type Department Care Team (Late st Contact Info) Description 06/04/2024 9:45 AM EDT Office Visit [facility] MEDICINE [address] [place] [address] Nuzhat Shelton ANP [address] [place] [address] Healthcare maintenance (Primary Dx); Moderate asthma without complication, unspecified whether persistent; Rash; Gastroesophageal reflux disease, unspecified whether esophagitis present; Routine screening for STI (sexually transmitted infection); Irregular menses; Enlarged thyroid Social History Tobacco Use Types Packs/Day Years [...] with others, in a hotel, in a custodial, living outside on the street, on a [...] AM EDT documented as of this encounter Last Filed Vital Signs Vital Sign Reading Time Taken Comments Blood Pressure 143/83 06/04/2024 9:36 AM EDT Pulse 64 06/04/2024 9:36 AM EDT Temperature - - Respiratory Rate 20 06/04/2024 9:36 AM EDT Oxygen Saturation - - Inhaled Oxygen Concentration - - Weight 94.3 kg (208 lb) 06/04/2024 9:36 AM EDT Height 160 cm (5' 3 ) 06/04/2024 9:36 AM EDT Body Mass Index 36.85 06/04/2024 9:36 AM EDT documented in this encounter Plan of Treatment Scheduled Orders Name Type Priority Associated Diagnoses Orde r Schedule T-SPOT??.TB Lab Routine Healthcare maintenance Expected: 06/04/2024 (Approximate), Expires: 06/04/2025 HIV-1/2 Antigen and Antibodies, Fourth Generation, with Reflexes Lab Routine Routine screening for STI (sexually transmitted infection) Expected: 06/04/2024 (Approximate), Expires: 06/04/2025 RPR (Monitor) with Reflex to??Titer Lab Routine Routine screening for STI (sexually transmitted infection) Expected: 06/04/2024 (Approximate), Expires: 06/04/2025 Hepatitis C Antibody with Reflex to HCV, RNA, Quantitative, Real-Time PCR Lab Routine Routine screening for STI (sexually transmitted infection) Expected: 06/04/2024 (Approximate), Expires: 06/04/2025 Testosterone, Free (Dialysis) And Total, MS Lab Routine Irregular menses Ordered: 06/04/2024 TSH W/Reflex to FT4 Lab Routine Irregular menses Expected: 06/04/2024 (Approximate), Expires: 06/04/2025 Us Pelvis complete Imaging Routine Irregular menses Expected: 06/04/2024, Expires: 06/04/2025 US Pelvis Transvaginal Imaging Routine Irregular menses Expected: 06/04/2024, Expires: 06/04/2025 Comprehensive Metabolic Panel Lab Routine Healthcare maintenance Expected: 06/04/2024 (Approximate), Expires: 06/04/2025 US Thyroid Imaging Routine Enlarged thyroid Expected: 06/04/2024, Expires: 06/04/2025 documented as of this encounter Visit Diagnoses Diagnosis Healthcare maintenance- Primary Moderate asthma without complication, unspecified whether persistent Rash Rash and other nonspecific skin eruption Gastroesophageal reflux disease, unspecified whether esophagitis present Routine screening for STI (sexually transmitted infection) Screening examination for venereal disease Irregular menses Irregular menstrual cycle Enlarged thyroid Goiter, unspecified documented in this encounter Additional Health Concerns Assessment Noted Time PHQ-9 Depression Total Score: 12 023 10:59 AM EDT documented as of this encounter Care Teams Alpine Guide Relationship Specialty Start Date End Date Nuzhat Shelton ANP [address] [place] [id number] PCP - General Family Medicine 04/08/22 documented as of this encounter
--- OUTSIDE RECORDS SUMMARY | 2024-06-04 10:41 | XMS_ITS | Encounter Summary ---
Author Organization [employer] Address [address] [place] [address] Care Team Providers Care Image Assembler Name Role Phone Nuzhat Shelton Primary Care Provider [phone] Encounter Details Date Type Department Care Team (Latest Contact Info) Description 06/04/2024 Travel Social History Tobacco Use Types Packs/Day Years [...] with others, in a hotel, in a fdc, living outside on the street, on a [...] AM EDT documented as of this encounter Plan of Treatment Not on file documented as of this encounter Visit Diagnoses Not on filedocumented in this encounter Additional Health Concerns Assessment Noted Time PHQ-9 Depression Total Score: 12 023 10:59 AM EDT documented as of this encounter Care Teams Image Assembler Relationship Specialty Start Date End Date Nuzhat Shelton ANP [address] [place] [address] PCP - General Family Medicine 04/08/22 documented as of this encounter
--- OUTSIDE RECORDS SUMMARY | 2024-06-04 10:41 | XMS_ITS | Clinical Summary ---
Author Organization [employer] Address [address] [facility] [address] [place] [address] Care Team Providers Care Bundle Packer Name Role Phone Nuzhat Shelton Primary Care Provider [phone] Allergies No known active allergies Medications acetaminophen (Tylenol) 500 MG tablet Take 2 tablets by mouth in the morning and 2 tablets at noon and 2 tablets in the evening and 2 tablets before bedtime. 12/06/19 22 Active bacitracin 500 UNIT/GM ointment Apply topically 1 (one) time each day. 12/06/19 22 Active butalbital-acet aminophen-caffe ine (Fioricet) 50-300-40 MG capsule Take 1-2 capsules by mouth every 4 (four) hours. 10/20/19 22 Active betamethasone, augmented, (Diprolene) 0.05 % ointmentIndicat ions:Allergic contact dermatitis due to metals Apply topically 2 times daily. 45 g 1 04/13/19 23 Active docusate sodium (Colace) 100 MG capsule Take 1 capsule (100 mg) by mouth in the morning. 90 capsule 1 05/25/19 23 Active ferrous sulfate (Fe Tabs) 325 (65 Fe) MG EC tablet Take one tab po every other day. Do not crush, chew, or split. 30 tablet 09/07/19 23 Active famotidine (Pepcid) 20 MG tabletIndicatio ns:Chronic gastritis without bleeding, unspecified gastritis type,Gastroesop hageal reflux disease, unspecified whether esophagitis present Take 1 tablet (20 mg) by mouth 2 times daily. 40 tablet 03/12/19 24 Active albuterol (2.5 MG/3ML) 0.083% nebulizer solution INHALE 3 ML VIA NEBULIZER THREE TIMES A DAY 90 mL 07/04/19 24 Active triamcinolone (Kenalog) 0.1 % creamIndication s:Rash Apply topically 2 times daily. For 1 mo 30 g 06/05/19 25 Active albuterol 108 (90 Base) MCG/ACT inhalerIndicati ons:Moderate asthma without complication, unspecified whether persistent INHALE 2 PUFFS BY MOUTH EVERY 4 HOURS IF NEEDED 18 g 06/05/19 25 Active esomeprazole (NexIUM) [address] capsuleIndicati ons:Gastroesoph ageal reflux disease, unspecified whether esophagitis present 1 capsule once daily before breakfast 90 capsule 1 06/05/19 25 Active Fluticasone-Jaime meterol 500-50 MCG/ACT aerosol powder Inhale 1 puff every 12 (twelve) hours. 10/20/19 22 025 Discontinued(Th erapy completed) montelukast (Singulair) 10 MG tablet 1 (one) time each day. 12/29/19 21 025 Discontinued( erapy completed) SUMAtriptan (Imitrex) 50 MG tablet Take 1 tablet by mouth. 01/24/20 21 025 Discontinued(Th erapy completed) esomeprazole (NexIUM) [address] capsuleIndicati ons:Gastroesoph ageal reflux disease, unspecified whether esophagitis present Take 1 capsule (40 mg) by mouth before breakfast. Do not open capsule. 90 capsule 3 03/12/19 24 025 Discontinued(Re order (will not trigger notification to Pharmacy)) albuterol 108 (90 Base) MCG/ACT inhaler INHALE 2 PUFFS BY MOUTH EVERY 4 HOURS IF NEEDED 18 g 07/04/19 24 025 Discontinued(Re order (will not trigger notification to Pharmacy)) Active Problems Problem Noted Date Diagnosed Date Abnormal menses 09/06/2022 Overview (09/06/2022): woman with Hx of tubal ligation with heavy menses. Menses are normal monthly, this is the first episode she was concerned due to large blod clots without pain. -Hgb on 09/04/22 was 14.4, no bruising. -Reassurance given -Recomend menstrual tracking on toan which she is using. -When feeling better a short course of iron every other day for 2 weeks. -If she continues to have heavy menses advised to call us back. -She agrees with the plan . Assessment & Plan (09/06/2022 10:10 AM EDT): woman with Hx of tubal ligation with heavy menses. Menses are normal monthly, this is the first episode she was concerned due to large blod clots without pain. -Hgb on 09/04/22 was 14.4, no bruising. -Reassurance given -Recomend menstrual tracking on toan which she is using. -When feeling better a short course of iron every other day for 2 weeks. -If she continues to have heavy menses advised to call us back. -She agrees with the plan . Immune to hepatitis B 07/01/2022 Obesity with body mass index 30 or greater 07/01 Mixed anxiety and depressive disorder 01/28/2022 Bruising 01/31/2020 Anxiety 12/26/2016 Overview (07/01/2022): Previously [facility]. Prescribed Ambien 10 mg, Klonopin 1 mg 10/18/20 Seen at [facility]. Enlarged thyroid 12/26/2016 Overview (07/01/2022): Noted by previous PCP, seen by Dr Donnelly Dec 2011 and determined no FNA needed. Chronic gastritis without bleeding 12/24/2016 Overview (07/01/2022): H/o H pylori s/p tx Hair loss 12/24/2016 Migraine with aura and witho ut status migrainosus, not intractable 12/24/2016 Overview (07/01/2022): Previously seen by Neuro- thought to be cervical spasm and rebound MATTA. Previously Rx'd amitriptyline and sumatriptan. Moderate asthma without complication 12/24/2016 Resolved Problems Problem Noted Date Diagnosed Date Resolved Date COVID-19 01/28/2022 06/04/2024 Encounters Date Type Department Care Team Description 06/04/2024 9:45 AM EDT Office Visit [address] [id number] Nuzhat Shelton ANP Healthcare maintenance (Primary Dx); Moderate asthma without complication, unspecified whether persistent; Rash; Gastroesophageal reflux disease, unspecified whether esophagitis present; Routine screening for STI (sexually transmitted infection); Irregular menses; Enlarged thyroid 06/04/2024 Travel 06/03/[address] [address] Paxton Red[place] CHART PREP 05/27/2024 Patient Outreach [address] [address] Nuzhat Shelton ANP Care Coordination ([address] [place]ero Moyer telephone call outreach) 05/27/2024 Patient Outreach [address] [address] Nuzhat Shelton ANP Pre-visit Planning (SDOH screening positive and Tobacco screening negative) 05/14/[address] [address] Nuzhat Shelton ANP Medication Question 05/05/2024 Population Health Risk Score [facility] ([facility]) Department [address] [place] [phone] Provider, Population Health Generic from Last 3 Months Immunizations Name Administration Dates Next Due Influenza injectable quadriv alent preservative free 01/31/2020,12/24/2016,11/04/2016 Influenza, IIV3, injectable 03/08/2016,0 11/02/2013,01/15/2013,11/28 Influenza, intradermal, quad rivalent, preservative free 12/06/2020 Pneumococcal Conjugate PCV 20 03/12/2023 Pneumococcal Polysaccharide PPSV23 07/15/2012 Tdap 01/31/2020,03/16/2011 Family History Medical History Relation Name Comments Diabetes Father's Brother Diabetes Father's Sister Cancer Other Relation Name Status Comments Father's Brother Father's Sister Other Social History Tobacco Use Types Packs/Day Years Used Date Smoking Tobacco: Never Smokeless Tobacco: Never Tobacco Cessation:Counseling Given: Not Answered Alcohol Use Standard Drinks/Week Comments Yes 0 (1 standard drink = 0.6 oz pur e alcohol) Depression Answer Date Recorded Patient Health Questionnaire-9 Score 12 05/24/2022 Housing Stability Answer Date Recorded What is your housing situation today? I do not have housing (Staying with others, in a hotel, in a group home, living outside on the street, on a [...] not to disclose 2021 10:17 AM EDT Last Filed Vital Signs Vital Sign Reading Time Taken Comments Blood Pressure 143/83 06/04/2024 9:36 AM EDT Pulse 64 06/04/2024 9:36 AM EDT Temperature 37.2 ??C (98.9 ??F) 09/06/2022 9:31 AM ED T Respiratory Rate 20 06/04/2024 9:36 AM EDT Oxygen Saturation 100% 03/12/2023 2:03 PM EST Inhaled Oxygen Concentration - - Weight 94.3 kg (208 lb) 06/04/2024 9:36 AM EDT Height 160 cm (5' 3 ) 06/04/2024 9:36 AM EDT Body Mass Index 36.85 06/04/2024 9:36 AM EDT Plan of Treatment Health Maintenance Due Date Last Done Comments Family Planning (PISQ) 10/07/1999 Pap Smear 2005 Cervical Cancer Screening 2014 HPV/Cotest 2014 Depression Screening 05/25/2023 05/24/2022, 05/25/19 COVID-19 Vaccine ( season) 2023 Influenza Vaccine (#1) 2023 , 01/31/2020, 12/24/2016, Additional history exists SDOH Screening 05/27/2025 05/27/2024 Alcohol/Substance Use Screening 06/04/2025 06/04/2024 Tobacco Screening 06/04/2025 06/04/2024 DTaP/Tdap/Td Vaccines (3 - Td or Tdap) 01/30/2030 01/31/2020, 03/16/2011 Zoster Vaccines (1 of 2) 2034 RSV Patients and Patients Aged 60 years or older (1 - 1-dose 75+ series) 10/07/2059 Hepatitis C Screening Completed 12/29/2020 HIV Screening Completed 07/01/2022, 12/29/2020 Pneumococcal Vaccine: Pediatrics (0 to 5 Years) and At-Risk Patients (6 to 49) Years) Completed 03/12/2023, 07/15/2012 HIB Vaccines Aged Out No longer eligi ble based on patient's age to complete this topic HPV Vaccines Aged Out No longer eligi ble based on patient's age to complete this topic Hepatitis A Vaccines Aged Out No long er eligible based on patient's age to complete this topic Hepatitis B Vaccines Discontinued IPV Vaccines Aged Out No longer eligi ble based on patient's age to complete this topic Meningococcal Vaccine Aged Out No sandra brandon eligible based on patient's age to complete this topic RSV under 20 months Aged Out No longe r eligible based on patient's age to complete this topic Rotavirus Vaccines Aged Out No longer eligible based on patient's age to complete this topic Procedures Procedure Name Priority Date/Time Associated Diagnosis Comments HIV 1/2 ANTIGEN/ANTIBODY, FOURTH GENERATION W/RFL Routine 07/01/2022 3:28 PM EDT Bruising ZZZ HISTORICAL HEPATITIS C AB W/REFL TO HCV RNA, QN, PCR Routine 12/29/2020 9:22 AM EST from Last 3 Months or Most Recently Relevant to Health Maintenance Results * HIV-1/2 Antigen and Antibodies, Fourth Generation, with Reflexes (07/01/2022 3:28 PM EDT) Pathologist [facility] HIV Antigen/Antibody, 4th Generation NON-REAC TIVE NON-REAC TIVE [facility] [place] [facility] Comment: HIV-1 antigen and HIV-1/HIV-2 antibodies were not detected. There is no laboratory evidence of HIV infection. PLEASE NOTE: This information has been disclosed to you from records whose confidentiality may be protected by state law. ??If your state requires such protection, then the state law prohibits you from making any further disclosure of the information without the specific written consent of the person to whom it pertains, or as otherwise permitted by law. A general authorization for the release of medical or other information is NOT sufficient for this purpose. ?? For additional information please refer to http://education.[employer]Group.[employer]/faq/EYU015 (This link is being provided for informational/ educational purposes only.) The performance of this assay has not been clinically validated in patients less than 2 years old. Blood Venous blood specimen / Unknown 07/01/2022 3:28 PM EDT 07/01/2022 3:28 PM EDT Narrative [facility] - 07/03/2022 10:27 AM EDT FASTING:UNKNOWN FASTING: UNKNOWN Quiana Bailon [facility] LAB BLOOD ORDERABLES Final Result [facility] [address] [place] [address] [facility] [place] [facility] [address] [place] [address] * HEPATITIS C AB W/REFL TO HCV RNA, QN, PCR (12/29/2020 9:22 AM EST) HEPATITIS C ANTIBODY NON-REACT BRANDON NON-REACT BRANDON [facility] INDEX 0.03 <1.00 [facility] Comment: ?? HCV antibody was non-reactive. There is no laboratory ?? evidence of HCV infection. ?? In most cases, no further action is required. However, if recent HCV exposure is suspected, a test for HCV RNA (test code 94124) is suggested. ?? For additional information please refer to http://MetaNotes.[employer]/faq/YBG97k3 (This link is being provided for informational/ educational purposes only.) ?? 12/29/2020 9:22 AM EST us David Nichole MD HISTORICAL/NON ORDERABLE LAB S Final Result [facility] [address] from Last 3 Months or Most Recently Relevant to Health Maintenance Insurance [facility] C3 Care Teams Bundle Packer Relationship Specialty Start Date End Date Nuzhat Shelton ANP [address] [place] [id number] PCP - General Family Medicine 04/08/22
[2024-06-04 11:33] LABS: Alanine Aminotransferase 17 U/L (0-31); Albumin Level 4.2 g/dL (3.5-5.0); Alkaline Phosphatase 68 U/L (39-117); Anion Gap 7 (12-20); Aspartate Amino Transferase 27 U/L (5-31); Bilirubin Total 0.4 mg/dL (0.0-1.0); Blood Urea Nitrogen 17 mg/dL (9-16); Calcium 9.4 mg/dL (8.4-10.2); Carbon Dioxide 31 mmol/L (22-29); Chloride 103 mmol/L (96-108); Estimated Glomerular Filt Rate > 60; Glucose Random 95 mg/dL (60-115); Potassium 4.3 mmol/L (3.3-5.1); Sodium 137 mmol/L (135-145); Total Protein 7.3 g/dL (6.5-8.0)
[2024-06-04 11:46] LABS: TSH reflex Free T4 0.89 uIU/mL (0.32-4.0)
[2024-06-04 12:33] LABS: HIV AB/AG Nonreactive (Nonreactive); HIV Num 1 0.06 S/CO (0.00-0.99); ~HepC Num1 0.13 S/CO (0.00-0.79); ~Hepatitis C Antibody Nonreactive (Nonreactive)
[2024-06-06 17:14] LABS: RPR Rapid Plasma Reagin NON-REACTIVE (NON-REACTIVE)
[2024-06-07 00:08] LABS: TS Negative Control Passed; TS Panel A 0; TS Panel B 2; TS Positive Control Passed; TSpotTB Negative (Negative)
[2024-06-10 15:38] LABS: Testosterone, Free 3.7 pg/mL (0.1-6.4); Testosterone, Total 26 ng/dL (2-45)
== END 2024-06-04 10:16 | disposition home or self-care (01) ==
LOC: HO.HHCL 10:15
PROVIDERS: Visit Provider Nurse Practitioner Primary Care
DX: Z00.00 Encounter for general adult medical examination without abnormal findings (principal); N92.6 Irregular menstruation, unspecified; Z11.3 Encounter for screening for infections with a predominantly sexual mode of transmission
CPT/HCPCS: 36415; 80053; 84402; 84403; 84443; 86481; 86592; 86803; 87389

== ENCOUNTER 2024-07-09 14:23 | Outpatient (REF) | payer MEDICAID, SELFPAY ==
--- NOTE | ~2024-07-09 | US_ITS ---
EXAMINATION: US PELVIS TRANSABDOMINAL AND TRANSVAGINAL HISTORY: irregular menses, h/o fibroids COMPARISON: Comparison is made with the prior examination dated 09/18/2021. TECHNIQUE: Transabdominal and endovaginal real-time 2D velazco-scale ultrasound was performed. FINDINGS: Uterus: The uterus is normal in size, measuring 9.9 x 4.4 x 5.8 cm. Myometrium has a normal echotexture. There is an anterior fibroid measuring 1.6 x 1.2 x 1.3 cm. Endometrium: The endometrial stripe measures 14 mm in thickness. Right ovary: The right ovary measures 3.2 x 2.0 x 2.6 cm. The right ovary is normal in size and echotexture. Left ovary: The left ovary measures 3.3 x 1.7 x 2.2 cm. The left ovary is normal in size and echotexture. Pelvic fluid: none. US/US pelvic and transvaginal IMPRESSION: 1.6 x 1.2 x 1.3 cm anterior uterine fibroid. Thickened endometrial stripe. The ovaries are unremarkable. Electronically signed by: Fortunato Perkins MD 07/09/2024 03:52 PM EDT
--- NOTE | ~2024-07-09 | US_ITS ---
EXAMINATION: US THYROID HISTORY: h/o enlarged thyroid TECHNIQUE: Real-time grayscale ultrasound imaging was performed and images were reviewed. COMPARISON: There are no prior studies available for comparison. FINDINGS: SIZE: The right thyroid lobe measures 4.3 x 1.4 x 1.3 cm. The left thyroid lobe measures 3.0 x 1.0 x 1.4 cm. The isthmus measures 3 mm. FLOW: Flow to the gland is normal. ECHOGENICITY: The echotexture of the gland is homogeneous. NODULES: No thyroid nodules are identified. There are multiple prominent lymph nodes in the neck measuring up to 1.6 x 0.5 x 0.8 cm on the right and 1.9 x 0.4 x 0.7 cm on the left. US/US thyroid IMPRESSION: Unremarkable thyroid ultrasound. Chronic bilateral cervical lymph nodes. Clinical correlation is recommended. ACR TI-RADS Guidelines TR1 (0 points): Benign, No follow-up or biopsy required TR2 (2 points): Not Suspicious, No biopsy or follow up indicated TR3 (3 points): Mildly Suspicious, FNA if >= 2.5 cm, Follow if >= 1.5 cm TR4 (4-6 points): Moderately Suspicious, FNA if >= 1.5 cm, Follow if >= 1.0 cm TR5 (>=7 points): Highly Suspicious, FNA if >= 1.0 cm, Follow if >= 0.5 cm Electronically signed by: Fortunato Perkins MD 07/09/2024 03:43 PM EDT
--- OUTSIDE RECORDS SUMMARY | 2024-07-09 14:25 | XMS_ITS | Clinical Summary ---
Author Organization [employer] Address [address] [facility] [address] [place] [address] Care Team Providers Care Truck Hopper Name Role Phone Nuzhat Shelton Primary Care Provider [phone] Allergies No known active allergies Medications acetaminophen (Tylenol) 500 MG tablet Take 2 tablets by mouth in the morning and 2 tablets at noon and 2 tablets in the evening and 2 tablets before bedtime. 2 Active bacitracin 500 UNIT/GM ointment Apply topically 1 (one) time each day. 2 Active butalbital-aceta minophen-caffein e (Fioricet) 50-300-40 MG capsule Take 1-2 capsules by mouth every 4 (four) hours. 2 Active betamethasone, augmented, (Diprolene) 0.05 % ointmentIndicati ons:Allergic contact dermatitis due to metals Apply topically 2 times daily. 45 g 1 3 Active docusate sodium (Colace) 100 MG capsule Take 1 capsule (100 mg) by mouth in the morning. 90 capsule 1 3 Active ferrous sulfate (Fe Tabs) 325 (65 Fe) MG EC tablet Take one tab po every other day. Do not crush, chew, or split. 30 tablet 3 Active famotidine (Pepcid) 20 MG tabletIndication s:Chronic gastritis without bleeding, unspecified gastritis type,Gastroesoph ageal reflux disease, unspecified whether esophagitis present Take 1 tablet (20 mg) by mouth 2 times daily. 40 tablet 4 Active albuterol (2.5 MG/3ML) 0.083% nebulizer solution INHALE 3 ML VIA NEBULIZER THREE TIMES A DAY 90 mL 4 Active triamcinolone (Kenalog) 0.1 % creamIndications :Rash Apply topically 2 times daily. For 1 mo 30 g 5 Active albuterol 108 (90 Base) MCG/ACT inhalerIndicatio ns:Moderate asthma without complication, unspecified whether persistent INHALE 2 PUFFS BY MOUTH EVERY 4 HOURS IF NEEDED 18 g 5 Active esomeprazole (NexIUM) [address] capsuleIndicatio ns:Gastroesophag eal reflux disease, unspecified whether esophagitis present 1 capsule once daily before breakfast 90 capsule 1 5 Active Active Problems Problem Noted Date Diagnosed Date [...] [facility]. Prescribed Ambien 10 mg, Klonopin 1 mg 10/18/20 Seen at [facility]. Enlarged thyroid 12/26/2016 Overview (07/01/2022): Noted by [...] Encounters Date Type Department Care Team Description 06/16/[address] [address] Nuzhat Shelton ANP 06/04/2024 9:45 AM EDT Office Visit [address] [address] Nuzhat Shelton ANP Healthcare maintenance (Primary Dx); Moderate asthma without complication, unspecified whether persistent; Rash; Gastroesophageal reflux disease, unspecified whether esophagitis present; Routine screening for STI (sexually transmitted infection); Irregular menses; Enlarged thyroid 06/04/2024 Travel 06/03/[address] [address] [place] CHART PREP 05/27/2024 Patient Outreach [address] [address] Nuzhat Shelton ANP Care Coordination ([facility] Lucero Moyer telephone call outreach) 05/27/2024 Patient Outreach [facility] [address] [place] [address] Nuzhat Shelton ANP Pre-visit Planning (SDOH screening positive and Tobacco screening negative) 05/14/2024 Telephone [facility] [address] [place] [address] Nuzhat Shelton ANP Medication Question 05/05/2024 Population Health Risk Score [facility] () Department [address] [place] [phone] Provider, Population Health Generic from Last 3 Months Immunizations Immunization Administration Dates Next Due Influenza injectable quadriv [...] with others, in a hotel, in a senior living, living outside on the street, on a [...] 06/04/2024 9:36 AM EDT Plan of Treatment Upcoming Encounters Date Type Department Care Team (Late st Contact Info) Description 09/07/2024 2:15 PM EDT Procedure Visit [facility] [address], [place] [phone] Denisa Christiansen CNM [address] [place] [address] Health Maintenance Due Date Last Done Comments Family Planning (PISQ) 10/07/1999 Pap Smear 2005 Cervical Cancer Screening 2014 HPV/Cotest 2014 Depression Monitoring 11/23/2022 05/24/2022, 023 COVID-19 Vaccine ( season) 2023 Influenza Vaccine (#1) 2023 , 01/31/2020, 12/24/2016, Additional history exists SDOH Screening 05/27/2025 05/27/2024 Alcohol/Substance Use Screening 06/04/2025 06/04/2024 Disability Screening 06/04/2025 06/04/2024 Tobacco Screening 06/04/2025 06/04/2024 DTaP/Tdap/Td Vaccines (3 - Td or Tdap) 01/30/2030 01/31/2020, 03/16/2011 Zoster Vaccines (1 of 2) 2034 RSV Patients and Patients Aged 60 years or older (1 - 1-dose 75+ series) 10/07/2059 Pneumococcal Vaccine: Pediatrics (0 to 5 Years) and At-Risk Patients (6 to 49) Years) Completed 03/12/2023, 07/15/2012 HIV Screening Completed 06/04/2024, 06/11, 12/29/2020 Hepatitis C Screening Completed 06/04/2024, 021 HIB Vaccines Aged Out No longer eligi [...] patient's age to complete this topic Meningococcal B Vaccine Aged Out No l onger eligible based on patient's age to complete [...] Procedure Name Priority Date/Time Associated Diagnosis Comments COMPREHENSIVE METABOLIC PANEL Routine 06/04/2024 10:18 AM EDT Healthcare maintenance TSH W/REFLEX TO FT4 Routine 06/04/2024 1 0:18 AM EDT Irregular menses TESTOSTERONE, FREE (DIALYSIS) AND TOTAL,MS Routine 06/04/2024 10:18 AM EDT Irregular menses HEPATITIS C AB W/REFL TO HCV RNA, QN, PCR Routine 06/04/2024 10:18 AM EDT Routine screening for STI (sexually transmitted infection) RPR (MONITOR) W/REFL TITER Routine 06/04/2024 10:18 AM EDT Routine screening for STI (sexually transmitted infection) HIV 1/2 ANTIGEN/ANTIBODY, FOURTH GENERATION W/RFL Routine 06/04/2024 10:18 AM EDT Routine screening for STI (sexually transmitted infection) T-SPOT(R).TB Routine 06/04/2024 10:18 AM EDT Healthcare maintenance from Last 3 Months Results * T-SPOT??.TB (06/04/2024 10:18 AM EDT) T Spot TB Negative Negative [facility] Comment:A negative test resu lt does not exclude the possibilityof exposure to or infection with Mycobacteriumtuberculosis (M. tuberculosis). Patients with recentexposure to TB infected individuals exhibiting anegative T-SPOT.TB result should be considered forretesting within 6 weeks or if other relevant clinicalsymptoms indicate. Results from T-SPOT.TB testing mustbe used in conjunction with each individual'sepidemiological history, current medical status,and results of other diagnostic evaluations.The T-SPOT.TB test is qualitative and results arereported as positive, borderline, or negative, giventhat the test controls perform as expected. In linewith the Centers for Disease Control and Prevention's2010 recommendation to report quantitative measurementsalongside the qualitative result, the laboratoryprovides spot counts for informational purposes only.The T-SPOT.TB test should not be interpreted as aquantitative test. TS PANEL A 0 [facility] TS PANEL B 2 [facility] Negative Control Passed [facility] Positive Control Passed [facility] Comment:For additional infor jose, please refer tohttp://education.[employer]/faq/ASL181(This link is being provided for informational/educational purposes only.)REPORT COMMENT:REC'D AT [facility]YTHIS TEST WAS PERFORMED AT:[employer] [id number] [place] [id number] MEDINA MD,PHD 06/04/2024 10:1 8 AM EDT 06/04/2024 11:06 AM EDT Nuzhat Shelton ANP LAB BLOOD ORDERABLES Final Resul t Performing Organization Address City/[facility]/ZIP Co de Phone Number [facility] [address] [place] [phone] * TSH W/Reflex to FT4 (06/04/2024 10:18 AM EDT) TSH reflex Free T4 0.89 0.32 - 4.0 uIU/mL [facility] Blood Venous blood specimen / Unknown 06/04/2024 10:18 AM EDT 06/04/2024 11:06 AM EDT Nuzhat Shelton [facility] LAB BLOOD ORDERABLES Final Resul t Performing Organization Address City/[facility]/ZIP Co de Phone Number [facility] [address] [place] [phone] * Hepatitis C Antibody with Reflex to HCV, RNA, Quantitative, Real-Time PCR (06/04/2024 10:18 AM EDT) Hepatitis C Antibody Nonreactive Nonreactive [facility] Comment:Antibodies to HCV no t detected; does not exclude early acuteHCV infection. Blood Venous blood specimen / Unknown 06/04/2024 10:18 AM EDT 06/04/2024 11:06 AM EDT Nuzhat Shelton ANP LAB BLOOD ORDERABLES Final Resul t Performing Organization Address [facility] de Phone Number [facility] [address] [place] [phone] * RPR (Monitor) with Reflex to??Titer (06/04/2024 10:18 AM EDT) RPR (Monitor) w/Refl Titer NON-REACTI VE NON-REACT BRANDON [facility] Comment:THIS TEST WAS PERFOR MED AT:[employer] [place] [phone] DOTY MD Rapid Plasma Reagin Ab Titer TNP [facility] Blood Venous blood specimen / Unknown 06/04/2024 10:18 AM EDT 06/04/2024 11:06 AM EDT us Nuzhat Shelton ANP LAB BLOOD ORDERABLES Final Resul t Performing Organization Address [facility] de Phone Number [facility] [address] [place] [phone] * HIV-1/2 Antigen and Antibodies, Fourth Generation, with Reflexes (06/04/2024 10:18 AM EDT) Pathologist [facility] HIV AB/AG Nonreactive Nonreactive [facility] Comment:HIV-1 p24 Ag and/or HIV-1/HIV-2 Ab not detected.A test result that is nonreactive does not exclude thepossibility of exposure to or infection with HIV-1 and/orHIV-2. Nonreactive results in this assay for individualswith prior exposure to HIV-1 and/or HIV-2 may be due toantigen and antibody levels that are below the limit ofdetection of this assay.The [employer] HIV Ag/Ab Combo assay result andsupplemental assay results should be interpreted inconjunction with the patient's clinical presentation,history and other laboratory results. If the results areinconsistent with clinical evidence, additional testing issuggested to confirm the result. Blood Venous blood specimen / Unknown 06/04/2024 10:18 AM EDT 06/04/2024 11:06 AM EDT Nuzhat Shelton ANP LAB BLOOD ORDERABLES Final Resul t Performing Organization Address [facility]/ZIP Co de Phone Number [facility] [address] [place] [phone] [phone] * Testosterone, Free (Dialysis) And Total, MS (06/04/2024 10:18 AM EDT) Testosterone, Total 26 2 - 45 ng/dL [facility] Comment:For additional infor mation, please refer tohttps://education.[employer]/faq/DJP457(This link is being provided for informational/educational purposes only.)(Note)This test was developed and its analytical performancecharacteristics have been determined by [employer]. It hasnot been cleared or approved by the FDA. This assay hasbeen validated pursuant to the CLIA regulations and isused for clinical purposes. Testosterone, Free 3.7 0.1 - 6.4 pg/mL [facility] Comment:(Note)This test was developed and its analytical performancecharacteristics have been determined by [employer]. It hasnot been cleared or approved by the FDA. This assay hasbeen validated pursuant to the CLIA regulations and isused for clinical purposes.[employer] [id number] [place] [address],[address] [place] [address] [phone] Mark Beck MD, PhDTHIS TEST WAS PERFORMED AT:[id number] [address] [place] [phone] BECK MD,PHD Blood Venous blood specimen / Unknown 06/04/2024 10:18 AM EDT 06/04/2024 11:06 AM EDT Nuzhat Shelton ANP LAB BLOOD ORDERABLES Final Resul t Performing Organization Address [facility]/ZIP Co de Phone Number [facility] [address] [place] [phone] * (ABNORMAL) Comprehensive Metabolic Panel (06/04/2024 10:18 AM EDT) Sodium 137 135 - 145 mmol/L [facility] Potassium 4.3 3.3 - 5.1 mmol/L [facility] Chloride 103 96 - 108 mmol/L [facility] Carbon Dioxide 31(H) 22 - 29 mmol/L [facility] Anion Gap 7(L) 12 - 20 [facility] Urea Nitrogen (BUN) 17(H) 9 - 16 mg/dL [facility] Creatinine, Serum 0.75 0.5 - 1.4 mg/dL [facility] Estimated Glomerular Filt Rate >60 [facility] Comment:Chronic Kidney Disea se: Estimated GFR < 60 mL/min/1.78g5Tefzrf Kidney Disease: Estimated GFR < 15 mL/min/1.73m2 Glucose 95 60 - 115 mg/dL [facility] Calcium 9.4 8.4 - 10.2 mg/dL [facility] Bilirubin, Total 0.4 0.0 - 1.0 mg/dL [facility] Aspartate Amino Transferase 27 5 - 31 U/L [facility] Alanine Aminotransferase 17 0 - 31 U/L [facility] Total Protein 7.3 6.5 - 8.0 g/dL [facility] Albumin Level 4.2 3.5 - 5.0 g/dL [facility] Alkaline Phosphatase 68 39 - 117 U/L [facility] Blood Venous blood specimen / Unknown 06/04/2024 10:18 AM EDT 06/04/2024 11:06 AM EDT us [facility] LAB BLOOD ORDERABLES Final Resul t [facility] [address] [place] [phone] from Last 3 Months Insurance [facility] C3 Care Teams Truck Hopper Relationship Specialty Start Date End Date Nuzhat Shelton ANP [address] [place] [phone] PCP - General Family Medicine 04/08/22
== END 2024-07-09 14:24 | disposition home or self-care (01) ==
LOC: HO.US 14:23
PROVIDERS: PCP Nurse Practitioner Primary Care; Visit Provider Nurse Practitioner Primary Care
DX: E04.9 Nontoxic goiter, unspecified (principal); N92.6 Irregular menstruation, unspecified
CPT/HCPCS: 76536; 76830; 76856

== ENCOUNTER → 2024-07-09 14:25 | Outpatient (BNV) | payer MEDICAID, SELFPAY | PROVIDERS: PCP Nurse Practitioner Primary Care; Visit Provider Radiology Diagnostic Radiology | DX: D25.9 Leiomyoma of uterus, unspecified (principal); N85.00 Endometrial hyperplasia, unspecified; R59.0 Localized enlarged lymph nodes | CPT/HCPCS: 76536; 76830; 76856 ==

== ENCOUNTER 2024-07-15 11:58 | Outpatient (AMB) | payer MEDICAID, SELFPAY ==
--- NOTE | 2024-07-15 12:17 | MHC.OFFVIS ---
Vital Signs 07/15/24 12:19 Height 5 ft 3 in Weight 199 lb 3 oz BMI 35.3 BP 101/67 Blood Pressure Location Lt brachial Position Sitting Pulse 88 Pulse Oximetry (%) 98 Intake Visit Reasons: gerd, hx of h pylori, aurelio pt Intake Note: Patient complex follow for GERD, hx of H pylori/ Mireille jensen was 08/26/2022. Patient cc: abdominal pain, GERD on and off, 4 dates with out doing BM, denies any other GI issues. 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 Last visit with ALONZO Gamble 08/26/2022 for GERD. Pt with hx of GERD, H. pylori infection, and gastric ulcer s/p abx tx several years ago, now presenting with ongoing upper abdominal pain. Pain reportedly recurred ~2 mos post-abx and has been persistent since, with recent worsening onset yesterday, interfering w/ sleep and restricting comfortable sleeping positions. Pain described as constant, located upper abdomen, burning in character, rated as severe, with intermittent sensation of a palpable ball ; radiates to back at times. Worse with sitting, lying down, and movement; not affected by eating. No clear relieving factors. Reports constipation with BM q3?7d for years; occasionally soft, sometimes hard, requires prolonged straining, occasional use of OTC laxatives. Reports decreased appetite and low oral intake, mostly juice, rice, occasional fruit, no beans, avoids vegetables. No recent improvement with omeprazole x1wk; previously used Pepcid. No current use of Miralax but used previously with partial effect. Reports known uterine fibroids (recently found x2 on pelvic imaging); pending medical economics consultant f/u and probable bx. PCP ordered recent labs, reportedly normal; thyroid wnl. No hx cholecystectomy. Patient denies: fever/chills, n/v, appetite changes, pyrosis, regurgitation, dysphasia, unintentional wt loss, or melena/hematochezia. 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 - family hx as below PFSH Medical History (Updated 07/15/24 @ 13:16 by Veda Gramajo CNP) Uterine fibroid Constipation Surgical History Hx of tubal ligation Hx of removal of cyst Family History Father Cancer Paternal Aunt Cancer Paternal Grandmother Cancer of abdominal wall Mother Uterus cancer Abdominal tumor Social History Household Members: Family Alcohol intake: current Alcohol intake frequency: holidays/special occasions only Patient Tobacco Use Status: Never used Tobacco Current occupational status: employed 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 Physical Exam Vital Signs: Last Vital Signs Pulse 88 07/15/24 12:19 BP 101/67 07/15/24 12:19 Pulse Ox 98 07/15/24 12:19 BMI result Body Mass Index 35.3 Const General: healthy appearing, no acute distress and well developed Nutritional Appearance: well nourished Orientation/consciousness: patient oriented x3 HEENT Head: Yes normal to inspection, Yes normocephalic and Yes atraumatic Face and sinus: Yes normal facial exam Eyes General: appearance normal, both eyes and all related structures Neck Neck: Yes normal visual inspection Resp Effort & Inspection: normal respiratory effort, able to speak in complete sentences, no tracheal deviation and symmetric chest movement Auscultation: clear to auscultation bilaterally Cardio Jugular venous distension: no JVD Rate: regular rate Rhythm: regular rhythm Heart sounds: S1 normal heart sound present, S2 normal heart sound present, no gallops and no murmurs GI Inspection: Yes normal to inspection and No distended Palpation (GI): Soft to palpation, not firm, Tenderness to palpation present (GI) in the LLQ, in the RLQ, in the LUQ, in the RUQ and with rebound tenderness and No hepatosplenomegaly present Auscultation: normal bowel sounds and other (limited by body garments in place ) Neuro General: patient oriented x3 Gait exam (Neuro): Normal gait present Psych Appearance: grossly normal Mental Status: mental status grossly normal Speech and movement: Normal speech and movement present Affect: normal affect Attitude: cooperative Thought process: Normal thought process present Thought content: Normal thought content present Insight: Good insight present (Psych) Judgement: Good judgement present (Psych) Assessment & Plan Assessment & Plan (1) Abdominal pain: Code(s): R10.9 - Unspecified abdominal pain Category: Medical Qualifiers: Abdominal location: generalized Qualified Code(s): R10.84 - Generalized abdominal pain Plan: Reported as upper ab pain. however, entire ab tender on exam. Previous H. pylori/gastric ulcer hx per pt ( unable to locate previous EGD report), persistent pain, failed empiric PPI, burning character, possible risk of recurrence. - Additional Tests: - H. pylori breath or stool antigen test (hold omeprazole x2wks prior) - Abdominal ultrasound (order placed for biliary assessment) - Basic labs: CBC, CMP to assess anemia, hepatic function - Stool studies for GI inflammation as per order - Medications: - Omeprazole 20mg oral daily (discontinue x2wks prior to HP testing) - Sucralfate 1g oral TDS PRN as PPI substitute - Lifestyle Modifications: - Avoid known triggers, emphasize regular eating schedule as tolerated (2) Constipation: Code(s): K59.00 - Constipation, unspecified Category: Medical Qualifiers: Constipation type: unspecified constipation type Qualified Code(s): K59.00 - Constipation, unspecified Plan: Longstanding pattern, straining, incomplete evacuation, intermittent hard stools, risk for complications. - Additional Tests: - None indicated at present; ongoing assessment - Medications: - Resume Miralax (polyethylene glycol 3350) oral daily - start oral Fiber tablet daily - Lifestyle Modifications: - Increase dietary fiber (add fruits/veg as tolerated) - Increase hydration (encourage water intake > juice) - Avoid prolonged straining (3) Uterine fibroid: Code(s): D25.9 - Leiomyoma of uterus, unspecified Category: Medical Qualifiers: Uterine leiomyoma location: unspecified location Qualified Code(s): D25.9 - Leiomyoma of uterus, unspecified Plan: Recent imaging showing new/small fibroids, background of abdominal pain and pending ? gynecologic bx. - Additional Tests: - Await SENIOR SYSTEMS ENGINEER evaluation and recommendations, possible bx - Follow-Up: - Pt to f/u with SENIOR SYSTEMS ENGINEER upon scheduling Plan follow up in two weeks with nursing for h. pylori testing follow up with provider in 6 weeks or sooner as neeed Time: I spent a total of 30 minutes on the date of encounter which includes: Preparing to see the patient (reviewed previous documentation, test results and medical history) Performing a medically appropriate exam and/or evaluation Ordering medications, tests, and procedures Documenting clinical information in the health record Orders: Orders Basic Metabolic Panel Today R10.13 - Epigastric pain C Reactive Protein Today R10.13 - Epigastric pain Calprotectin, Fecal Today K59.00 - Constipation, unspecified Complete Blood Count Auto Diff Today R10.13 - Epigastric pain H Pylori Breath Test Today US abdomen complete Today R10.13 - Epigastric pain Medications: New sucralfate Take on tablet three times daily as needed. Take an empty stomach. Avoid antacids within 30 minutes. 1 g PO TID 90 tabs 1RF methylcellulose (laxative) (Citrucel) 500 mg PO DAILY 90 tabs 1RF polyethylene glycol 3350 (Miralax) Mix 17G in 4 to 8 oz of water until dissolved and drink immediately 17 grams PO DAILY 100 ea 1RF Coding Level of Care Code Established Pt Est Pt Level 4 (96419) Patient Type Established Diagnoses Generalized abdominal pain R10.84 Abdominal location: generalized Constipation, unspecified constipation type K59.00 Constipation type: unspecified constipation type Uterine leiomyoma, unspecified location D25.9 Uterine leiomyoma location: unspecified location
[2024-07-15 12:19] VITALS: BP 101/67; PULSE 88; O2SAT 98; BMI 35.3
--- OUTSIDE RECORDS SUMMARY | 2024-07-15 14:08 | XMS_ITS | Clinical Summary ---
Author Organization [employer] Address 75 [facility] 7t [place] [address] Care Team Providers Care Gut Cleaner Name Role Phone Noe Saini Primary Care Provider [phone] Allergies No known active allergies Medications acetaminophen [...] [facility]. Prescribed Ambien 10 mg, Klonopin 1 mg 10/18/20 Seen at [facility] Enlarged thyroid 12/26/2016 Overview (07/01/2022): Noted by [...] Encounters Date Type Department Care Team Description 07/14/2024 Telephone [facility] MEDICINE [address] [place] [phone] Noe Saini ANP chart prep 07/12/2024 Telephone [facility] MEDICINE [address] [place] [phone] Noe Saini ANP Results 07/12/2024 Results Follow-Up [facility] MEDICINE [address] [place] [phone] Noe Saini ANP US Thyroid 06/16/2024 Telephone [facility] [place] [address] Noe Saini ANP 06/04/2024 9:45 AM EDT Office Visit [facility] [place] [address] Noe Saini ANP Healthcare maintenance (Primary Dx); Moderate asthma without complication, unspecified whether persistent; Rash; Gastroesophageal reflux disease, unspecified whether esophagitis present; Routine screening for STI (sexually transmitted infection); Irregular menses; Enlarged thyroid 06/04/2024 Travel 06/03/[address] [address] [place] CHART PREP 05/27/2024 Patient Outreach [address] [address] Noe Saini ANP Care Coordination ([address] Lucero Moyer telephone call outreach) 05/27/2024 Patient Outreach [address] [address] Noe Saini ANP Pre-visit Planning (SDOH screening positive and Tobacco screening negative) 05/14/[address] [address] Noe Saini ANP Medication Question 05/05/2024 Population Health Risk Score [facility] () [address] [phone] Provider, Population Health Generic from Last [...] with others, in a hotel, in a assisted, living outside on the street, on a [...] Care Team (Late st Contact Info) Description 07/15/2024 2:15 PM EDT Office Visit [facility] MEDICINE [address] [place], [place] [phone] Noe Saini, ANP [address] [place], [place] [phone] 09/07/2024 2:15 PM EDT Procedure Visit [facility] MEDICINE [address] [place], [place] [phone] Denisa Christiansen, CNM [address] [place], [place] [phone] Health Maintenance Due Date Last Done Comments Family Planning (PISQ) 10/07/1999 Pap Smear 2005 Cervical Cancer Screening 2014 HPV/Cotest 2014 Depression Monitoring 11/23/2022 05/24/2022, 023 COVID-19 Vaccine ( season) 2023 Influenza Vaccine (Season Ended) 2024 12/06/2020, 01/31/2020, 12/24/2016, Additional history exists SDOH Screening [...] Procedure Name Priority Date/Time Associated Diagnosis Comments US PELVIS TRANSVAGINAL Routine 3:03 PM EDT Irregular menses US THYROID Routine 07/09/2024 2:43 PM EDT Enlarged thyroid COMPREHENSIVE METABOLIC PANEL Routine 06/04/2024 10:18 AM [...] maintenance from Last 3 Months Results * US Pelvis Transvaginal (07/09/2024 3:03 PM EDT) Anatomical Region Laterality Modality Pelvis Ultrasound 07/09/2024 3:03 PM EDT Narrative 07/09/2024 3:55 PM EDT ? [facility] ?[address] ?[place] [address] ? Ultrasound Report ? Signed ? Patient: Leroy,Juany M ?MR#: [id number] ?? [id number] ? : 1985 ?Acct:[id number] ? Age/Sex: 38 / F ?ADM Date: 07/09/24 ? Loc: HO.US ? Attending Dr: Noe Saini NP ? Ordering Physician: NOE SAINI NP ?? Date of Service: 07/09/24 ?? Procedure(s): US pelvic and transvaginal ?? Accession Number(s): [id number] ? cc: NOE SAINI NP ? EXAMINATION: ??US PELVIS TRANSABDOMINAL AND TRANSVAGINAL ? HISTORY: irregular menses, h/o fibroids ? COMPARISON: Comparison is made with the prior examination dated ?? 09/18/2021. ? TECHNIQUE: ? Transabdominal and endovaginal real-time 2D velazco-scale ultrasound was ?? performed. ? FINDINGS: ? Uterus: ??The uterus is normal in size, measuring 9.9 x 4.4 x 5.8 cm. ? Myometrium has a normal echotexture. ??There is an anterior fibroid ?? measuring 1.6 x 1.2 x 1.3 cm. ? Endometrium: ??The endometrial stripe measures 14 mm in thickness. ? Right ovary: ??The right ovary measures 3.2 x 2.0 x 2.6 cm. ??The right ?? ovary is normal in size and echotexture. ? Left ovary: ?? The left ovary measures 3.3 x 1.7 x 2.2 cm. ??The left ?? ovary is normal in size and echotexture. ? Pelvic fluid: none. ? US/US pelvic and transvaginal ?? IMPRESSION: ?? 1.6 x 1.2 x 1.3 cm anterior uterine fibroid. Thickened endometrial ?? stripe. The ovaries are unremarkable. ? Electronically signed by: ??Fortunato Perkins MD ??07/09/2024 03:52 PM EDT ?? RP ? Dictated By: ?Fortunato Perkins MD ? Signed By: ?<Electronically signed by Fortunato Perkins MD in OV> ?07/09/24 1552 ? DD/ 1503 ? TD/TT: 07/09/24 1521 ? Industrial Health Engineer: ? Procedure Note Donsandyter, Image - 07/09/[address] [address] Ultrasound Report Signed Patient: Juany Harper MMR#: [id number] : 1985Acct:[id number] Age/Sex: 38 / FADM Date: 07/09/24 Loc: .US Attending Dr: Noe Saini NP Ordering Physician: NOE SAINI NP Date of Service: 07/09/24 Procedure(s): US pelvic and transvaginal Accession Number(s): [id number] cc: NOE SAINI NP EXAMINATION: US PELVIS TRANSABDOMINAL AND TRANSVAGINAL HISTORY: irregular menses, h/o fibroids COMPARISON: Comparison is made with the prior examination dated 09/18/2021. TECHNIQUE: Transabdominal and endovaginal real-time 2D velazco-scale ultrasound was performed. FINDINGS: Uterus: The uterus is normal in size, measuring 9.9 x 4.4 x 5.8 cm. Myometrium has a normal echotexture. There is an anterior fibroid measuring 1.6 x 1.2 x 1.3 cm. Endometrium: The endometrial stripe measures 14 mm in thickness. Right ovary: The right ovary measures 3.2 x 2.0 x 2.6 cm. The right ovary is normal in size and echotexture. Left ovary: The left ovary measures 3.3 x 1.7 x 2.2 cm. The left ovary is normal in size and echotexture. Pelvic fluid: none. US/US pelvic and transvaginal IMPRESSION: 1.6 x 1.2 x 1.3 cm anterior uterine fibroid. Thickened endometrial stripe. The ovaries are unremarkable. Electronically signed by: Fortunato Perkins MD 07/09/2024 03:52 PM EDT RP Dictated By: Fortunato Perkins MD Signed By: <Electronically signed by Fortunato Perkins MD in OV> 07/09/24 1552 DD/ 1503 TD/TT: 07/09/24 1521 Industrial Health Engineer: us Noe Saini ANP IMG US PROCEDURES Edited Result - Final * US Thyroid (07/09/2024 2:43 PM EDT) Anatomical Region Laterality Modality Head, Neck Ultrasound 07/09/2024 2:43 PM EDT Narrative 07/09/2024 3:46 PM EDT ? [facility] ?[address] ?[place] [address] ? Ultrasound Report ? Signed ? Patient: Juany Harper ?MR#: [id number] ?? [id number] ? : 1985 ?Acct:[id number] ? Age/Sex: 38 / F ?ADM Date: 07/09/24 ? Loc: HO.US ? Attending Dr: Noe Saini FLIGHT RESERVATIONS MANAGER ? Ordering Physician: NOE SAINI NP ?? Date of Service: 07/09/24 ?? Procedure(s): US thyroid ?? Accession Number(s): [id number] ? cc: NOE SAINI NP ? EXAMINATION: ??US THYROID ? HISTORY: h/o enlarged ??thyroid ? TECHNIQUE: Real-time grayscale ultrasound imaging was performed and ?? images were reviewed. ? COMPARISON: There are no prior studies available for comparison. ? FINDINGS: ?? SIZE: The right thyroid lobe measures 4.3 x 1.4 x 1.3 cm. ??The left ?? thyroid lobe measures 3.0 x 1.0 x 1.4 cm. ?? The isthmus measures 3 mm. ? FLOW: ??Flow to the gland is normal. ? ECHOGENICITY: ??The echotexture of the gland is homogeneous. ? NODULES: ?? No thyroid nodules are identified. There are multiple prominent lymph ?? nodes in the neck measuring up to 1.6 x 0.5 x 0.8 cm on the right and ?? 1.9 x 0.4 x 0.7 cm on the left. ? US/US thyroid ?? IMPRESSION: ?? Unremarkable thyroid ultrasound. Chronic bilateral cervical lymph ?? nodes. Clinical correlation is recommended. ? ACR TI-RADS Guidelines ? TR1 (0 points): Benign, ??No follow-up or biopsy required ?? TR2 (2 points): Not Suspicious, ??No biopsy or follow up indicated ?? TR3 (3 points): Mildly Suspicious, ??FNA if >= 2.5 cm, Follow if >= 1.5 ?? cm ?? TR4 (4-6 points): Moderately Suspicious, FNA if >= 1.5 cm, Follow if >= ?? 1.0 cm ?? TR5 (>=7 points): Highly Suspicious, ??FNA if >= 1.0 cm, Follow if >= ?? 0.5 cm ? Electronically signed by: ??Fortunato Perkins MD ??07/09/2024 03:43 PM EDT ?? RP ? Dictated By: ?Fortunato Perkins MD ? Signed By: ?<Electronically signed by Fortunato Perkins MD in OV> ?07/09/24 1543 ? DD/ 1443 ? TD/TT: 07/09/24 1454 ? Industrial Health Engineer: ? Procedure Note Sanjana العراقي - 07/09/[address] [address] Ultrasound Report Signed Patient: Juany Harper [facility]#: [id number] : 1985Acct:[id number] Age/Sex: 38 / FADM Date: 07/09/24 Loc: CONSUELO.US Attending Dr: Noe Saini FLIGHT RESERVATIONS MANAGER Ordering Physician: SAINI,NOE FLIGHT RESERVATIONS MANAGER Date of Service: 07/09/24 Procedure(s): US thyroid Accession Number(s): [id number] cc: NOE SAINI NP EXAMINATION: US THYROID HISTORY: h/o enlarged thyroid TECHNIQUE: Real-time grayscale ultrasound imaging was performed and images were reviewed. COMPARISON: There are no prior studies available for comparison. FINDINGS: SIZE: The right thyroid lobe measures 4.3 x 1.4 x 1.3 cm. The left thyroid lobe measures 3.0 x 1.0 x 1.4 cm. The isthmus measures 3 mm. FLOW: Flow to the gland is normal. ECHOGENICITY: The echotexture of the gland is homogeneous. NODULES: No thyroid nodules are identified. There are multiple prominent lymph nodes in the neck measuring up to 1.6 x 0.5 x 0.8 cm on the right and 1.9 x 0.4 x 0.7 cm on the left. US/US thyroid IMPRESSION: Unremarkable thyroid ultrasound. Chronic bilateral cervical lymph nodes. Clinical correlation is recommended. ACR TI-RADS Guidelines TR1 (0 points): Benign, No follow-up or biopsy required TR2 (2 points): Not Suspicious, No biopsy or follow up indicated TR3 (3 points): Mildly Suspicious, FNA if >= 2.5 cm, Follow if >= 1.5 cm TR4 (4-6 points): Moderately Suspicious, FNA if >= 1.5 cm, Follow if >= 1.0 cm TR5 (>=7 points): Highly Suspicious, FNA if >= 1.0 cm, Follow if >= 0.5 cm Electronically signed by: Fortunato Perkins MD 07/09/2024 03:43 PM EDT RP Dictated By: Fortunato Perkins MD Signed By: <Electronically signed by Fortunato Perkins MD in OV> 07/09/24 1543 DD/ 1443 TD/TT: 07/09/24 1454 Industrial Health Engineer: us Noe Saini ANP IMG US PROCEDURES Edited Result - Final * T-SPOT??.TB (06/04/2024 10:18 AM EDT) T Spot TB Negative Negative [facility] Comment:A negative test resu lt [...] as aquantitative test. TS PANEL A 0 [facility] TS PANEL B 2 [facility] Negative Control Passed [facility] Positive Control Passed [facility] Comment:For additional infor matlake, please refer tohttp://education.Autobase/faq/MSZ691(This link is being provided for informational/educational purposes only.)REPORT COMMENT:REC'D AT [facility] TEST WAS PERFORMED AT:[employer] [id number] [place] [address]MAIXSSQNEL MEDINA MD,PHD 06/04/2024 10:1 8 AM EDT 06/04/2024 11:06 AM EDT [facility] LAB BLOOD ORDERABLES Final Resul t [facility] [address] [place] [phone] * TSH W/Reflex to FT4 (06/04/2024 10:18 AM EDT) TSH reflex Free T4 0.89 0.32 - 4.0 uIU/mL [facility] Blood Venous blood specimen / Unknown 06/04/2024 10:18 AM EDT 06/04/2024 11:06 AM EDT Noe Saini ANP LAB BLOOD ORDERABLES Final Resul t Performing Organization Address City/[facility]/ZIP Co de Phone Number [facility] [address] [place] [phone] * Hepatitis C Antibody with Reflex to HCV, RNA, Quantitative, Real-Time PCR (06/04/2024 10:18 AM EDT) Hepatitis C Antibody Nonreactive Nonreactive [facility] Comment:Antibodies to HCV no t detected; does not exclude early acuteHCV infection. Blood Venous blood specimen / Unknown 06/04/2024 10:18 AM EDT 06/04/2024 11:06 AM EDT Noe Saini [facility] LAB BLOOD ORDERABLES Final Resul t Performing Organization Address [facility] Co de Phone Number [facility] [address] [place] [phone] * RPR (Monitor) with Reflex to??Titer (06/04/2024 10:18 AM EDT) RPR (Monitor) w/Refl Titer NON-REACTI VE NON-REACT BRANDON [facility] Comment:THIS TEST WAS PERFOR MED AT:[employer] [place] [phone] DOTY MD Rapid Plasma Reagin Ab Titer TNP [facility] Blood Venous blood specimen / Unknown 06/04/2024 10:18 AM EDT 06/04/2024 11:06 AM EDT Noe Saini ANP LAB BLOOD ORDERABLES Final Resul t Performing Organization Address City/[facility] Co de Phone Number [facility] [address] [place] [address] [phone] * HIV-1/2 Antigen and Antibodies, Fourth Generation, with Reflexes (06/04/2024 10:18 AM EDT) HIV AB/AG Nonreactive Nonreactive [facility] Comment:HIV-1 p24 Ag and/or HIV-1/HIV-2 Ab not detected.A test result that is nonreactive does not exclude thepossibility of exposure to or infection with HIV-1 and/orHIV-2. Nonreactive results in this assay for individualswith prior exposure to HIV-1 and/or HIV-2 may be due toantigen and antibody levels that are below the limit ofdetection of this assay.The [employer] HIV Ag/Ab Combo assay result andsupplemental assay results should be interpreted inconjunction with the patient's clinical presentation,history and other laboratory results. If the results areinconsistent with clinical evidence, additional testing issuggested to confirm the result. Blood Venous blood specimen / Unknown 06/04/2024 10:18 AM EDT 06/04/2024 11:06 AM EDT Noe Saini [facility] LAB BLOOD ORDERABLES Final Resul t [facility] [address] [place] [phone] * Testosterone, Free (Dialysis) And Total, MS (06/04/2024 10:18 AM EDT) Testosterone, Total 26 2 - 45 ng/dL [facility] Comment:For additional infor mation, please refer tohttps://education.CloudMine.com/faq/TIV762(This link is being provided for informational/educational purposes only.)(Note)This test was developed and its analytical performancecharacteristics have been determined by [employer]. It hasnot been cleared or approved by the FDA. This assay hasbeen validated pursuant to the CLIA regulations and isused for clinical purposes. Testosterone, Free 3.7 0.1 - 6.4 pg/mL [facility] Comment:(Note)This test was developed and its analytical performancecharacteristics have been determined by [employer]. It hasnot been cleared or approved by the FDA. This assay hasbeen validated pursuant to the CLIA regulations and isused for clinical purposes.[facility]Fmed [id number] [place] [address],[address] [place] [address] [phone] Mark Beck MD, PhDTHIS TEST WAS PERFORMED AT:[id number] [place] [address] [place] [phone] BECK MD,PHD Blood Venous blood specimen / Unknown 06/04/2024 10:18 AM EDT 06/04/2024 11:06 AM EDT [facility] LAB BLOOD ORDERABLES Final Resul t [facility] [address] [place] [phone] * (ABNORMAL) Comprehensive Metabolic Panel (06/04/2024 10:18 AM EDT) Sodium 137 135 - 145 mmol/L [facility] Potassium 4.3 3.3 - 5.1 mmol/L [facility] Chloride 103 96 - 108 mmol/L [facility] Carbon Dioxide 31(H) 22 - 29 mmol/L [facility] Anion Gap 7(L) 12 - 20 [facility] Urea Nitrogen (BUN) 17(H) 9 - 16 mg/dL [facility] Creatinine, Serum 0.75 0.5 - 1.4 mg/dL [facility] Estimated Glomerular Filt Rate >60 [facility] Comment:Chronic Kidney Disea se: Estimated GFR < 60 mL/min/1.46l8Bwvduf Kidney Disease: Estimated GFR < 15 mL/min/1.73m2 Glucose 95 60 - 115 mg/dL [facility] Calcium 9.4 8.4 - 10.2 mg/dL [facility] Bilirubin, Total 0.4 0.0 - 1.0 mg/dL [facility] Aspartate Amino Transferase 27 5 - 31 U/L [facility] Alanine Aminotransferase 17 0 - 31 U/L [facility] Total Protein 7.3 6.5 - 8.0 g/dL [facility] Albumin Level 4.2 3.5 - 5.0 g/dL [facility] Alkaline Phosphatase 68 39 - 117 U/L [facility] Blood Venous blood specimen / Unknown 06/04/2024 10:18 AM EDT 06/04/2024 11:06 AM EDT Noe Saini [facility] BLOOD ORDERABLES Final Resul t [facility] [address] [place] [phone] [phone] from Last 3 Months Insurance [facility] Care Teams Gut Cleaner Relationship Specialty Start Date End Date Noe Saini ANP [address] [place] [address] [phone] PCP - General Family Medicine 04/08/22
== END 2024-07-15 13:24 | disposition home or self-care (01) ==
LOC: HO.HGI 11:59
PROVIDERS: Visit Provider Nurse Practitioner Family
DX: R10.84 Generalized abdominal pain (principal); K59.00 Constipation, unspecified; D25.9 Leiomyoma of uterus, unspecified
CPT/HCPCS: 99214

== ENCOUNTER → 2024-07-15 11:58 | Outpatient (BNVA) | payer MEDICAID, SELFPAY | PROVIDERS: Visit Provider Nurse Practitioner Family | DX: R10.84 Generalized abdominal pain (principal); K59.00 Constipation, unspecified; K21.9 Gastro-esophageal reflux disease without esophagitis; D25.9 Leiomyoma of uterus, unspecified | CPT/HCPCS: 99212 ==

== ENCOUNTER 2024-07-29 14:13 | Outpatient (REF) | payer MEDICAID, SELFPAY ==
[2024-07-29 14:25] LABS: MANUAL DIFF FLAG NO
[2024-07-29 14:32] LABS: Basophils Percent Auto 0.3 % (0-2); Eosinophils Absolute Auto 0.1 X10*3/uL (0.0-0.4); Eosinophils Percent Auto 1.3 % (0-4); Hematocrit 43.9 % (37.0-47.0); Hemoglobin 14.2 g/dl (12.0-16.0); Imm Gran Abs Auto 0.01 X10*3/uL (0.00-0.03); Imm Gran Pct Auto 0.1 % (0.0-0.4); Lymphocytes Absolute Auto 2.1 X10*3/uL (1.2-4.9); Lymphocytes Percent Auto 29.8 % (20-40); Mean Corpuscular HGB Conc 32.3 g/dl (31.0-35.0); Mean Corpuscular Hemoglobin 28.5 pg (27.0-33.0); Mean Platelet Volume 9.4 fL (9.4-12.3); Monocytes Absolute Auto 0.6 X10*3/uL (0.1-1.2); Monocytes Percent Auto 7.8 % (2-11); Neutrophils Absolute Auto 4.3 x10*3/uL (2.0-8.3); Neutrophils Percent Auto 60.7 % (45-73); Platelet Count 234 X10*3/uL (160-400); Red Blood Count 4.99 X10*6/uL (4.20-5.50); Red Cell Distribution Width 12.4 % (11.0-16.0); White Blood Count 7.1 X10*3/uL (4.8-10.8)
[2024-07-29 14:55] LABS: Anion Gap 11 (12-20); Blood Urea Nitrogen 11 mg/dL (9-16); C Reactive Protein 0.34 mg/dL (< or = 0.50); Calcium 9.5 mg/dL (8.4-10.2); Carbon Dioxide 31 mmol/L (22-29); Chloride 105 mmol/L (96-108); Estimated Glomerular Filt Rate > 60; Glucose Random 90 mg/dL (60-115); Potassium 5.3 mmol/L (3.3-5.1); Sodium 142 mmol/L (135-145)
--- OUTSIDE RECORDS SUMMARY | 2024-07-29 15:30 | XMS_ITS | Encounter Summary ---
Author Organization [employer] Address [address] [facility] 7t [place] [address] Care Team Providers Care Pumping Station Supervisor Name Role Phone Nuzhat Shelton Primary Care Provider [phone] Reason for Visit * Reason Onset Date Comments Medication Question 05/14/2024 Encounter Details Date Type Department Care Team ([facility] st Contact Info) Description 05/14/2024 Telephone [facility] MEDICINE [address] [place] [address] Nuzhat Shelton ANP [address] [place] [address] Medication Question Social History Tobacco Use Types [...] like to loose weight. Please return call [phone] documented in this encounter Plan of Treatment Upcoming Encounters Date Type Department Care Team (Late st Contact Info) Description 09/07/2024 2:15 PM EDT Procedure Visit [facility] MEDICINE [address] [place] [address] Denisa Christiansen CNM [address] [place] [address] documented as of this encounter Visit Diagnoses Not on filedocumented in this encounter Additional Health Concerns Assessment Noted Time PHQ-9 Depression Total Score: 12 023 10:59 AM EDT documented as of this encounter Care Teams Pumping Station Supervisor Relationship Specialty Start Date End Date Nuzhat Shelton ANP [address] [place] [address] PCP - General Family Medicine 04/08/22 documented as of this encounter
== END 2024-07-29 14:14 | disposition home or self-care (01) ==
LOC: HO.LAB 14:13
PROVIDERS: PCP Nurse Practitioner Primary Care; Visit Provider Nurse Practitioner Family
DX: R10.13 Epigastric pain (principal)
CPT/HCPCS: 36415; 80048; 85025; 86140

== ENCOUNTER 2024-07-30 09:01 | Outpatient (REF) | payer MEDICAID, SELFPAY ==
--- OUTSIDE RECORDS SUMMARY | 2024-07-30 09:11 | XMS_ITS | Encounter Summary ---
Author Organization [employer] Address 75 [facility] 7t [place] [address] Care Team Providers Care Supervisor Byproducts Name Role Phone Nuzhat Shelton Primary Care Provider [phone] Encounter Details Date Type Department Care Team (Late st Contact Info) Description 07/30/2024 Results Follow-Up [facility] MEDICINE [address] [place] [address] Nuzhat Shelton ANP [address] [place] [address] CBC auto differential, Basic Metabolic Panel, C-reactive Protein Social History Tobacco Use Types Packs/Day Years Used Date Smoking Tobacco: Never Smokeless Tobacco: Never Alcohol Use Standard Drinks/Week Comments Yes 0 (1 standard drink = 0.6 oz pur e alcohol) Depression Answer Date Recorded Patient Health Questionnaire-9 Score 0 07/15/2024 Patient Health Questionnaire-9 Score 0 07/15/2024 Last PHQ-9: Questionnaire Data Not on file 0 07/15/2024 Housing Stability Answer Date Recorded What is your housing situation today? I do not have housing (Staying with others, in a hotel, in a fpc, living outside on the street, on a [...] Answer Date Recorded Patient Health Questionnaire-2 Score 0 07/15/2024 Internet Access Answer Date Recorded Internet Access [...] as of this encounter Miscellaneous Notes * Result Encounter Note - PAVEL Oswald - 07/30/2024 8:56 AM EDT Outside provider, noted mild hyperk. documented in this encounter Plan of Treatment Upcoming Encounters Date Type Department Care Team (Late st Contact Info) Description 09/07/2024 2:15 PM EDT Procedure Visit [facility] MEDICINE [address] [place] [address] Denisa Christiansen CNM [address] [place] [address] documented as of this encounter Visit Diagnoses Not on filedocumented in this encounter Additional Health Concerns Assessment Noted Time PHQ-9 Depression Total Score: 0 07/16/19 25 2:29 PM EDT documented as of this encounter Care Teams Supervisor Byproducts Relationship Specialty Start Date End Date Nuzhat Shelton ANP [address] [place] [address] PCP - General Family Medicine 04/08/22 documented as of this encounter
[2024-07-30 10:31] LABS: Anion Gap 10 (12-20); Blood Urea Nitrogen 11 mg/dL (9-16); Calcium 9.3 mg/dL (8.4-10.2); Carbon Dioxide 28 mmol/L (22-29); Chloride 105 mmol/L (96-108); Estimated Glomerular Filt Rate > 60; Glucose Random 84 mg/dL (60-115); Potassium 4.5 mmol/L (3.3-5.1); Sodium 138 mmol/L (135-145)
== END 2024-07-30 09:02 | disposition home or self-care (01) ==
LOC: HO.LAB 09:01
PROVIDERS: PCP Nurse Practitioner Primary Care; Visit Provider Nurse Practitioner Family
DX: E87.5 Hyperkalemia (principal)
CPT/HCPCS: 36415; 80048

== ENCOUNTER 2024-08-12 08:04 | Outpatient (REF) | payer MEDICAID, SELFPAY | END 2024-08-12 08:05 | disposition home or self-care (01) | LOC: HO.LNP 08:04 | PROVIDERS: Visit Provider Obstetrics & Gynecology | DX: D25.9 Leiomyoma of uterus, unspecified (principal); N93.9 Abnormal uterine and vaginal bleeding, unspecified | CPT/HCPCS: 87491; 87591; 87626; 88175; 99212; 99385 ==

== ENCOUNTER 2024-08-12 08:04 | Outpatient (AMB) | payer MEDICAID, SELFPAY ==
--- OUTSIDE RECORDS SUMMARY | 2024-08-12 08:08 | XMS_ITS | Encounter Summary ---
Author Organization [employer] Address 75 [facility] 7t [place] [address] Care Team Providers Care Documentation Manager Name Role Phone Nuzhat Shelton Primary Care Provider [phone] Encounter Details Date Type Department Care Team (Late st Contact Info) Description 07/30/2024 Results Follow-Up [facility] MEDICINE [address] [place] [address] Nuzhat Shelton ANP [address] [place] [address] CBC auto differential, Basic Metabolic Panel, C-reactive [...] Description 09/07/2024 2:15 PM EDT Procedure Visit [facility] MEDICINE [address] [place] [address] Denisa Christiansen CNM [address] [place] [address] documented as of this encounter Visit Diagnoses Not on filedocumented in this encounter Additional Health Concerns Assessment Noted Time PHQ-9 Depression Total Score: 0 07/16/19 25 2:29 PM EDT documented as of this encounter Care Teams Documentation Manager Relationship Specialty Start Date End Date Nuzhat Shelton ANP [address] [place] [address] PCP - General Family Medicine 04/08/22 documented as of this encounter
--- NOTE | 2024-08-12 08:14 | A.OFFVIS_ITS ---
Vital Signs 08/12/24 08:15 Height 5 ft 3 in Weight 196 lb BMI 34.7 BP 124/76 Intake Visit Reasons: abnormal ultrasound Sheet Rock Installer Required: No Information Interpreted: non-clinical & clinical Accompanied by: Self / Same As Patient Allergies No Known Allergies Allergy (Verified 08/12/24 08:16) Is last menstrual period known: Yes HPI Comments Details: Presenting complaining of irregular menstrual cycles associated with pelvic cramps and passage of blood clots Pelvic ultrasound done in 07/04 showed the following: Uterus: The uterus is normal in size, measuring 9.9 x 4.4 x 5.8 cm. Myometrium has a normal echotexture. There is an anterior fibroid measuring 1.6 x 1.2 x 1.3 cm. Endometrium: The endometrial stripe measures 14 mm in thickness. Right ovary: The right ovary measures 3.2 x 2.0 x 2.6 cm. The right ovary is normal in size and echotexture. Left ovary: The left ovary measures 3.3 x 1.7 x 2.2 cm. The left ovary is normal in size and echotexture. Pelvic fluid: none. 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 Sexually active: Yes Sexual orientation: Straight/Heterosexual Gender identity: Female Female Reproductive History Menstrual Total pregnancies: 3 Full term: 2 Number of Living Children: 2 Ab spontaneous: 1 Review of Systems Const All systems reviewed & are unremarkable except as noted in HPI and below Card Reports as per HPI Resp Reports as per HPI GI Reports as per HPI and Reports no additional complaints Reports as per HPI Physical Exam Vital Signs: Last Vital Signs BP 124/76 08/12/24 08:15 BMI result Body Mass Index 34.7 Const General: cooperative, healthy appearing and comfortable Chest Chest palpation & inspection: normal inspection of the chest and normal palpation of entire chest wall Breast/axilla inspection: normal inspection of the breasts and normal inspection of the axillae Breast/axilla palpation: normal palpation of the breasts, normal palpation of the axillae and no axillary lymphadenopathy Resp Effort & Inspection: normal respiratory effort Auscultation: clear to auscultation bilaterally Percussion: percussion normal Cardio Palpation: normal PMI Rate: regular rate Rhythm: regular rhythm Heart sounds: no murmurs and no rubs Peripheral pulses: Peripheral pulses 2+ throughout GI Inspection: Yes normal to inspection Palpation (GI): Soft to palpation, nontender, no guarding, not rigid and No hepatosplenomegaly present Percussion: Yes normal to percussion Auscultation: normal bowel sounds Rectal Exam - Female: deferred General: Yes bladder normal to palpation External Female Exam: No lesion Speculum Exam - Vagina: normal appearance of the vagina, normal palpation, normal vaginal discharge and not erythematous Speculum Exam - Cervix: normal appearance of the cervix and normal palpation Bimanual exam- vagina & uterus: normal bimanual exam, normal palpation, uterine size normal, bladder normal to palpation, consistency normal and normal palpation Bimanual Exam- Adnexa, other: normal adnexae, no masses and no tenderness Assessment & Plan Assessment & Plan (1) Abnormal uterine bleeding (AUB): Code(s): N93.9 - Abnormal uterine and vaginal bleeding, unspecified Category: Medical Plan: Co testing done, GC and chlamydia taken CBC, TSH, HCG ordered. Discussed with the patient the different causes of abnormal bleeding including thyroid disorders, uterine and ovarian pathology, endometrial hyperplasia, carcinoma and other potential causes. Discussed with the patient the work up including CBC (to r/o anemia), TSH, endometrial biopsy to r/o endometrial pathology. All questions answered and the patient verbalized understanding. Instructed the patient to schedule an appointment for an endometrial biopsy in 2 weeks. (2) Uterine fibroid: Code(s): D25.9 - Leiomyoma of uterus, unspecified Category: Medical Qualifiers: Uterine leiomyoma location: unspecified location Qualified Code(s): D25.9 - Leiomyoma of uterus, unspecified Plan: Discussed with the patient the findings on pelvic ultrasound & the risk of myosarcoma; in addition reviewed with the patient that malignancy and pre malignancy cannot be ruled out without hysterectomy for pathological evaluation ; furthermore, explained to the patient the limitation of pelvic ultrasound and endometrial biopsy in the setting. Discussed with the patient the typical symptoms that are caused by myomas including but not limited to pelvic pain, pressure symptoms, abnormal uterine bleeding. In addition discussed with the patient options of treatment for myomas including: Serial ultrasounds periodically to follow-up on the size of the myoma while targeting the treatment against fibroids related symptoms ( control pills, Mirena IUD, progesterone treatment, GnRH agonist/antagonist, uterine artery embolization or endometrial ablation) versus surgical treatment including hysterectomy and or myomectomy. All pros and cons, risks and benefits of all options were discussed with the patient. The patient understands that delay in surgical treatment in case of myosarcoma can affect her prognosis, after further discussion, the patient decided to think about it and get back to us next visit Orders: Orders TSH reflex Free T4 Today N93.9 - Abnormal uterine and vaginal bleeding, unspecified HCG Quantitative Today N93.9 - Abnormal uterine and vaginal bleeding, unspecified CT NG by PCR Vag/Cerv Today N93.9 - Abnormal uterine and vaginal bleeding, unspecified Complete Blood Count no Diff Today N93.9 - Abnormal uterine and vaginal bleeding, unspecified Coding Level of Care Code Est Pt Prev Care 18-39y(05089) Diagnoses Abnormal uterine bleeding (AUB) N93.9 Uterine leiomyoma, unspecified location D25.9 Uterine leiomyoma location: unspecified location
[2024-08-12 08:15] VITALS: BP 124/76; BMI 34.7
== END 2024-08-12 08:44 | disposition home or self-care (01) ==
LOC: HO.HWS 08:05
PROVIDERS: Visit Provider Obstetrics & Gynecology
DX: Z01.419 Encounter for gynecological examination (general) (routine) without abnormal findings (principal); N93.9 Abnormal uterine and vaginal bleeding, unspecified; D25.9 Leiomyoma of uterus, unspecified
CPT/HCPCS: 99213; 99385; 99459

== ENCOUNTER 2024-08-12 10:01 | Outpatient (REF) | payer MEDICAID, SELFPAY ==
[2024-08-12 21:39] LABS: CT PCR DETECTED (Not Detect.); NG PCR NOT DETECTED (Not Detect.)
== END 2024-08-12 10:02 | disposition home or self-care (01) ==
LOC: HO.LAB 10:01
PROVIDERS: Visit Provider Obstetrics & Gynecology
DX: N93.9 Abnormal uterine and vaginal bleeding, unspecified (principal)
CPT/HCPCS: 87491; 87591

== ENCOUNTER 2024-08-16 09:56 | Outpatient (REF) | payer MEDICAID, SELFPAY ==
--- OUTSIDE RECORDS SUMMARY | 2024-08-16 10:33 | XMS_ITS | Encounter Summary ---
Author Organization [employer] Address [address] [facility] [address] [place] [address] Care Team Providers Care Letter Carrier Name Role Phone Nuzhat Shelton Primary Care Provider [phone] Encounter Details Date Type Department Care Team (Late st Contact Info) Description 07/30/2024 Results Follow-Up [facility] [address] [place] [address] Nuzhat Shelton ANP [address] [place] [address] CBC auto differential, Basic Metabolic Panel, C-reactive [...] with others, in a hotel, in a prison, living outside on the street, on a [...] Description 09/07/2024 2:15 PM EDT Procedure Visit [facility] [address] [place] [address] Denisa Christiansen CNM [address] [place] [address] documented as of this encounter Visit Diagnoses Not on filedocumented in this encounter Additional Health Concerns Assessment Noted Time PHQ-9 Depression Total Score: 0 07/16/19 25 2:29 PM EDT documented as of this encounter Care Teams Letter Carrier Relationship Specialty Start Date End Date Nuzhat Shelton ANP [address] [place] [address] PCP - General Family Medicine 04/08/22 documented as of this encounter
[2024-08-16 10:52] LABS: Hematocrit 43.0 % (37.0-47.0); Hemoglobin 14.1 g/dl (12.0-16.0); Mean Corpuscular HGB Conc 32.8 g/dl (31.0-35.0); Mean Corpuscular Hemoglobin 28.7 pg (27.0-33.0); Mean Corpuscular Volume 87.4 fL (80.0-98.0); NRBC Abs Auto 0.000 X10*3/uL (0.0-0.012); NRBC Pct Auto 0.0 /100WBC (0.0-0.2); Platelet Count 242 X10*3/uL (160-400); Red Blood Count 4.92 X10*6/uL (4.20-5.50); White Blood Count 6.9 X10*3/uL (4.8-10.8)
[2024-08-17 08:13] LABS: HBsAGNum1 0.28 S/CO (0.00-0.99); HIV Num 1 0.05 S/CO (0.00-0.99); Hepatitis B Surface Antigen Negative (Negative); ~HepC Num1 0.16 S/CO (0.00-0.79); ~Hepatitis C Antibody Nonreactive (Nonreactive)
[2024-08-17 08:21] LABS: Syphilis Screen Nonreactive (Nonreactive)
== END 2024-08-16 09:57 | disposition home or self-care (01) ==
LOC: HO.LAB 09:56
PROVIDERS: PCP Nurse Practitioner Primary Care; Visit Provider Obstetrics & Gynecology
DX: N93.9 Abnormal uterine and vaginal bleeding, unspecified (principal); A74.9 Chlamydial infection, unspecified
CPT/HCPCS: 36415; 84443; 84702; 85027; 86780; 86803; 87340; 87389

== ENCOUNTER 2024-08-27 11:42 | Outpatient (REF) | payer MEDICAID, SELFPAY | END 2024-08-27 11:43 | disposition home or self-care (01) | LOC: HO.LNP 11:42 | PROVIDERS: PCP Nurse Practitioner Primary Care; Visit Provider Nurse Practitioner Family | DX: Z11.2 Encounter for screening for other bacterial diseases (principal) | CPT/HCPCS: 83013; 99211 ==

== ENCOUNTER 2024-08-27 11:42 | Outpatient (AMB) | payer MEDICAID, SELFPAY ==
--- OUTSIDE RECORDS SUMMARY | 2024-08-27 12:01 | XMS_ITS | Encounter Summary ---
Author Organization [employer] Address [address] [facility] [address] [place] [address] Care Team Providers Care Senior Project Engineer Name Role Phone Nuzhat Shelton Primary Care Provider [phone] Reason for Visit * Reason Onset Date Comments November08/25/2024 Encounter Details Date Type Department Care Team ([facility] st Contact Info) Description 08/25/2024 Telephone [facility] [address] [place] [address] Nuzhat Shelton ANP [address] [place] [address] November Social History Tobacco Use Types Packs/Day Years [...] with others, in a hotel, in a jail, living outside on the street, on a [...] encounter Miscellaneous Notes * Telephone Encounter - Monse Schaffer [place] - 08/25/2024 10:32 AM EDT Telephone call to patient to schedule a recall appointment. No answer, Left voicemail to return call to clinic.. Recall letter sent. Visit type: Office visit Appointment notes: f/u abn menses Month due: November With: Nikita Please schedule appointment above if patient returns call documented in this encounter Plan of Treatment Upcoming Encounters Date Type Department Care Team (Late st Contact Info) Description 09/07/2024 2:15 PM EDT Procedure Visit [facility] [address] [place] [address] Denisa Christiansen CNM [address] [place] [address] 11/15/2024 11:15 AM EDT Office Visit [facility] [address] [place] [address] Nuzhat Shelton ANP [address] [place] [address] documented as of this encounter Visit Diagnoses Not on filedocumented in this encounter Additional Health Concerns Assessment Noted Time PHQ-9 Depression Total Score: 0 07/16/19 25 2:29 PM EDT documented as of this encounter Care Teams Senior Project Engineer Relationship Specialty Start Date End Date Nuzhat Shelton ANP [address] [place] [address] PCP - General Family Medicine 04/08/22 documented as of this encounter
--- NOTE | 2024-08-27 12:13 | AM.OFFVISNUR ---
Intake Visit Reasons: H PYLORI Intake Note: Patient presents for collection of?H Pylori?breath test. Patient has been fasting for 1 hour (nothing to eat, drink, no chewing gum or smoking) has not taken any antacid medication for at least 2 weeks and has no allergies to artificial sweeteners.?? Allergies No Known Allergies Allergy (Verified 08/12/24 08:16) Assessment & Plan Assessment & Plan (1) Constipation: Code(s): K59.00 - Constipation, unspecified Category: Medical Qualifiers: Constipation type: unspecified constipation type Qualified Code(s): K59.00 - Constipation, unspecified (2) Bloating: Comment: Check H pylori Code(s): R14.0 - Abdominal distension (gaseous) Category: Medical Plan Patient presents for collection of?H Pylori?breath test. Patient has been fasting for 1 hour (nothing to eat, drink, no chewing gum or smoking) has not taken any antacid medication for at least 2 weeks and has no allergies to artificial sweeteners.???This test checks for an overgrowth of bacteria in your stomach. We all have bacteria but some may have more than others. It is treatable. if the test comes back negative there is nothing else to do. If the test result is positive we will treat you with 2 antibiotics and a medication to decrease the acid in your stomach (PPI) for 2 weeks. Two weeks after you have completed the treatment we will retest you to make sure the overgrowth has resolved. Patient Instructions: Process for specimen collection and reason for testing was explained to the patient. Specimen collection. Patient instructed to take a deep breath and then exhale into the blue bag, filling it up as much as possible. Patient instructed to drink a mixture of water and the artificial sweetener with a straw. A 15 minute wait period was observed. Patient instructed to take a deep breath and then exhale into the pink bag, filling it up as much as possible.?? Coding Level of Care Code Est Pt Level 1 (35849) Diagnoses Constipation, unspecified constipation type K59.00 Constipation type: unspecified constipation type Bloating R14.0
== END 2024-08-27 12:51 | disposition home or self-care (01) ==
LOC: HO.HGI 11:42
PROVIDERS: PCP Nurse Practitioner Primary Care; Visit Provider Nurse Practitioner Family
DX: K59.00 Constipation, unspecified (principal); R14.0 Abdominal distension (gaseous)

== ENCOUNTER 2024-09-01 08:59 | Outpatient (AMB) | payer MEDICAID, SELFPAY ==
--- NOTE | 2024-09-01 09:04 | MHC.OFFVIS ---
Vital Signs 09/01/24 09:16 Height 5 ft 3 in Weight 196 lb BMI 34.7 Intake Visit Reasons: EMB/colpo Compliance Advisor Required: No Health And Wellness Manager: Health And Wellness Manager Present (Adrienne) Accompanied by: Self / Same As Patient Allergies No Known Allergies Allergy (Verified 09/01/24 09:05) HPI Comments Details: Presenting for EMB for AUB addition to abnormal Pap smear showing ASCUS HPV 16 positive The patient had positive chlamydia was treated with doxycycline as well as her partner, with no unprotected intercourse for week afterwards. 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 Sexual orientation: Straight/Heterosexual Gender identity: Female Review of Systems Const All systems reviewed & are unremarkable except as noted in HPI and below Reports as per HPI and Reports no additional complaints GI Reports no additional complaints Reports no additional complaints Physical Exam General: Yes no CVA tenderness External Female Exam: normal external appearance and normal appearance of the urethra Speculum Exam - Vagina: normal appearance of the vagina, normal palpation, no lesions and no masses Speculum Exam - Cervix: normal appearance of the cervix, normal palpation, no lesions, no masses and nontender Bimanual exam- vagina & uterus: normal bimanual exam, normal palpation, uterine size normal, normal palpation, uterine shape normal, No Cervical tenderness present and non-tender Bimanual Exam- Adnexa, other: normal adnexae Back/Spine/Pelvis Back: no CVA tenderness Results AMB Test Urine AMB Test Urine Negative Last Edit by Renetta Emery CMA on 09/01/24 09:11 Results Reviewed Results Reviewed: Laboratory Last Values Tst Clinic Negative 09/01/24 09:11 Assessment & Plan Assessment & Plan (1) Chlamydia contact, treated: Code(s): Z20.2 - Contact with and (suspected) exposure to infections with a predominantly sexual mode of transmission Category: Medical Plan: GC/CT with BV panel collected for test of cure will defer colposcopy/biopsy/ECC with EMB for next week. Instructions given the patient to schedule an appointment within a week for colposcopy/EMB/ECC/cervical biopsy. All questions answered, the patient verbalized understanding Orders: Orders AMB HCG Urine Test Today Z32.02 - Encounter for test, result negative Coding Level of Care Code Est Pt Level 3 (48265) Diagnoses Chlamydia contact, treated Z20.2
[2024-09-01 09:16] VITALS: BMI 34.7
--- OUTSIDE RECORDS SUMMARY | 2024-09-01 09:26 | XMS_ITS | Encounter Summary ---
Author Organization [employer] Address [address] [facility] [address] [place] [address] Care Team Providers Care Professor Of Mathematics Name Role Phone Nuzhat Shelton Primary Care Provider [phone] Encounter Details Date Type Department Care Team (Late st Contact Info) Description 07/30/2024 Results Follow-Up [facility] [address] [place] [address] Nuzhat Shelton ANP [address] [place] [address] CBC auto differential, Basic Metabolic Panel, C-reactive [...] with others, in a hotel, in a intermediate, living outside on the street, on a [...] Description 09/07/2024 2:15 PM EDT Procedure Visit [facility] [address] [place] [address] Denisa Christiansen, CNFidel [address] [place] [address] 11/15/2024 11:15 AM EDT Office Visit [facility] [address] [place] [address] Nuzhat Shelton ANP [address] [place] [phone] documented as of this encounter Visit Diagnoses Not on filedocumented in this encounter Additional Health Concerns Assessment Noted Time PHQ-9 Depression Total Score: 0 07/16/19 25 2:29 PM EDT documented as of this encounter Care Teams Professor Of Mathematics Relationship Specialty Start Date End Date Nuzhat Shelton ANP [address] [place] [address] PCP - General Family Medicine 04/08/22 documented as of this encounter
== END 2024-09-01 09:25 | disposition home or self-care (01) ==
LOC: HO.HWS 09:00
PROVIDERS: Visit Provider Obstetrics & Gynecology
DX: Z32.02 Encounter for pregnancy test, result negative (principal); Z20.2 Contact with and (suspected) exposure to infections with a predominantly sexual mode of transmission
CPT/HCPCS: 99213

== ENCOUNTER 2024-09-01 08:59 | Outpatient (REF) | payer MEDICAID, SELFPAY ==
[2024-09-01 20:12] LABS: Bacterial Vaginosis PCR POSITIVE (Negative); Candida Group PCR NOT DETECTED (Not Detect); Candida glab krusei PCR NOT DETECTED (Not Detect); Trichomonas vaginalis PCR NOT DETECTED (Not Detect)
[2024-09-01 21:05] LABS: CT PCR NOT DETECTED (Not Detect.); NG PCR NOT DETECTED (Not Detect.)
== END 2024-09-01 09:00 | disposition home or self-care (01) ==
LOC: HO.LNP 08:59
PROVIDERS: Visit Provider Obstetrics & Gynecology
DX: Z20.2 Contact with and (suspected) exposure to infections with a predominantly sexual mode of transmission (principal); Z32.02 Encounter for pregnancy test, result negative; Z98.51 Tubal ligation status
CPT/HCPCS: 81025; 81515; 87491; 87591; 99212

== ENCOUNTER 2024-09-09 08:15 | Outpatient (REF) | payer MEDICAID, SELFPAY | END 2024-09-09 08:16 | disposition home or self-care (01) | LOC: HO.LNP 08:15 | PROVIDERS: Visit Provider Obstetrics & Gynecology | DX: R87.610 Atypical squamous cells of undetermined significance on cytologic smear of cervix (ASC-US) (principal); R87.810 Cervical high risk human papillomavirus (HPV) DNA test positive; N88.9 Noninflammatory disorder of cervix uteri, unspecified; N93.9 Abnormal uterine and vaginal bleeding, unspecified; Z98.51 Tubal ligation status | CPT/HCPCS: 57454; 58110; 88305 ==

== ENCOUNTER 2024-09-09 08:15 | Outpatient (AMB) | payer MEDICAID, SELFPAY ==
--- OUTSIDE RECORDS SUMMARY | 2024-09-09 08:21 | XMS_ITS | Encounter Summary ---
Author Organization [employer] Address [address] [facility] [address] [place] [address] Care Team Providers Care Joint Sealer Name Role Phone Nuzhat Shelton Primary Care Provider [phone] Encounter Details Date Type Department Care Team (Late st Contact Info) Description 07/30/2024 Results Follow-Up [facility] [address] [place] [address] Nuzhat Shelton ANP [address] [place] [address] CBC auto differential, Basic Metabolic Panel, C-reactive [...] with others, in a hotel, in a [facility], living outside on the street, on a [...] Care Team (Late st Contact Info) Description 11/15/2024 11:15 AM EDT Office Visit [facility] [address] [place] [address] Nuzhat Shelton ANP [address] [place] [address] documented as of this encounter Visit Diagnoses Not on filedocumented in this encounter Additional Health Concerns Assessment Noted Time PHQ-9 Depression Total Score: 0 07/16/19 25 2:29 PM EDT documented as of this encounter Care Teams Joint Sealer Relationship Specialty Start Date End Date Nuzhat Shelton ANP [address] [place] [address] PCP - General Family Medicine 04/08/22 documented as of this encounter
--- NOTE | 2024-09-09 08:33 | MHC.OFFVIS ---
Intake Visit Reasons: EMB/ colpo Accompanied by: Self / Same As Patient Allergies No Known Allergies Allergy (Verified 09/09/24 08:33) HPI Comments Details: Presenting for EMB and colposcopy for ASCUS HPV 16 positive, the patient had chlamydia test of cure negative, BV was positive a week ago was treated with Flagyl PFSH Medical History Uterine fibroid Constipation Surgical History Hx of myomectomy Hx of tubal ligation Hx of removal of cyst Family History Father Cancer Paternal Aunt Cancer Paternal Grandmother Cancer of abdominal wall Mother Uterus cancer Abdominal tumor Diabetes Ovarian cancer HTN (hypertension) Social History Household Members: None Housing: Apartment Alcohol intake: current Alcohol intake frequency: holidays/special occasions only Patient Tobacco Use Status: Never used Tobacco Current occupational status: employed 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 We thoroughly discussed the procedure itself, including its details, alternatives, and all associated risks. This included but not limited to the following complications such as bleeding, infection, and injury to the vagina, bladder, and vessels, as well as the potential need for transfusion with all its associated risks. Subsequently, the patient sign the consent. Pap smear result: Ascus HPV 16 positive Urine test in office = Negative Procedure: During the procedure, the following steps were performed: A speculum was inserted, and acetic acid was applied. Colposcopy was conducted, allowing visualization of the transformation zone. Acetowhite lesions were identified at the 4+ 7+ 11+ 12+ 1 o'clock position. Cervical biopsies were obtained from the 4+ 7+ 11+ 12+ 1 o'clock position, followed by an endocervical curettage (ECC). Vaginoscopy of the upper vagina revealed no evidence of aceto-white lesions. Hemostasis was achieved using Monsel solution, and the patient tolerated the procedure well. Post-Procedure Instructions: The patient was advised to promptly contact the office or the after hours answering service or go to the emergency room if experiencing a temperature exceeding 100.4?F, abdominal pain, nausea/vomiting, or bleeding. Additionally, the patient was instructed to abstain from vaginal intercourse and bathtub use. The patient confirmed understanding of these instructions. Discharge Instructions: The patient was instructed to schedule a follow-up appointment in 2 weeks for further evaluation and management. Please note that this note was generated using a voice recognition program, and errors may have occurred during methods specialist. 73475-Pezdjlulk of cervix including upper vagina with biopsy and ECC Procedure code (CPT) selection complete Endometrial Biopsy Details: The patient was counseled regarding the indication and benefits of endometrial sampling to rule out endometrial pathology including not limited to endometrial hyperplasia or endometrial cancer and others; The alternatives (Either do nothing vs. hysteroscopy D&C) & the risks were discussed with the patient including but not limited: pain, uterine perforation, bleeding, infection, possible injury to bladder, bowel, ureter, possible need for blood transfusion with all its possible risks. The patient verbalized understanding all questions answered and signed consent. Urine test done in the office was negative The patient was placed into the dorsal lithotomy position; a speculum was inserted in the vagina. Using aseptic technique for the procedure, the cervix was cleansed with Betadine. The anterior lip of the cervix was grasped with a single tooth tenaculum. The uterus was sounded to 7 cm with a 4 mm Pipelle was used. Tissues samples were obtained and placed in formalin, in a patient labeled container and sent to the pathology department. At the end of the procedure, there was minimal bleeding noted The patient tolerated the procedure well and was discharged in good condition with the following instructions: Nothing in the vagina until the bleeding stops. No sex until the bleeding stops, to call if any of the following occurs: fever (>100.4), flu-like symptoms, abdominal pain, heavy bleeding, four smelling vaginal discharge. The patient was instructed to schedule a Follow up appointment in 2 weeks to discuss pathology results of the biopsy and treatment options. This note was generated with a voice recognition program. Some errors may have been overlooked during the review of this note. Sometimes these errors may affect the content or meaning of a given sentence. 21047-Emrqwimazpc Biopsy Assessment & Plan Assessment & Plan (1) Abnormal uterine bleeding (AUB): Code(s): N93.9 - Abnormal uterine and vaginal bleeding, unspecified Category: Medical Plan: EMB done, see procedure note (2) ASCUS with positive high risk HPV cervical: Comment: HPV 16 positive Code(s): R87.610 - Atypical squamous cells of undetermined significance on cytologic smear of cervix (ASC-US); R87.810 - Cervical high risk human papillomavirus (HPV) DNA test positive Category: Medical Plan: Discussed with the patient the result of her abnormal pap, its significance, risk of progression, persistence, and regression. the false positive/negative rate of a Pap smear as a screening test in detecting cervical cancer and the indication for a diagnostic test -colposcopy, biopsy, endocervical curettage. The patient verbalized understanding and agreed with the plan, all questions answered. Colposcopy, biopsy /ECC done, see procedure note Orders: Orders AMB Colposcopy Today R87.610 - Atypical squamous cells of undetermined significance on cytologic smear of cervix (ASC-US), R87.810 - Cervical high risk human papillomavirus (HPV) DNA test positive AMB Endometrial Biopsy Today N93.9 - Abnormal uterine and vaginal bleeding, unspecified Coding Level of Care Code Procedure Only Diagnoses Abnormal uterine bleeding (AUB) N93.9 ASCUS with positive high risk HPV cervical R87.610; R87.810 CPT Codes Colposcopy - CPT: 04903-Yqpzyrxsi of cervix including upper vagina with biopsy and ECC ([id number]) Endometrial Biopsy - CPT: 56698-Zapaeolwgfx Biopsy ([id number])
== END 2024-09-09 10:39 | disposition home or self-care (01) ==
LOC: HO.HWS 08:15
PROVIDERS: Visit Provider Obstetrics & Gynecology
DX: R87.610 Atypical squamous cells of undetermined significance on cytologic smear of cervix (ASC-US) (principal); R87.810 Cervical high risk human papillomavirus (HPV) DNA test positive; N93.9 Abnormal uterine and vaginal bleeding, unspecified
CPT/HCPCS: 57454; 58110

== ENCOUNTER 2024-09-21 10:16 | Outpatient (REF) | payer MEDICAID, SELFPAY ==
--- NOTE | ~2024-09-21 | US_ITS ---
CLINICAL HISTORY: R10.13 - Epigastric pain --- Additional Notes or Special Instructions: RUQ epigastric pain US abdomen complete Comparison: CT/SR - CT ABDOMEN PELVIS WITHOUT IV CONTRAST - 09/18/21 17:55 EDT Findings: The visualized pancreas is normal. The aorta and inferior vena cava are normal caliber. The liver is normal in size and increased in echotexture. There is no intrahepatic bile duct dilatation. The common duct is 5 mm in diameter. The gallbladder is normal. There is no sonographic Feng sign. The main portal vein is antegrade. The right kidney is 10 cm in length. The left kidney is 10.5 cm in length. The spleen is normal. No ascites. IMPRESSION: Mild hepatic steatosis. No acute process. This document has been electronically signed by: Rickie Burgos MD on 09/21/2024 12:53:56
--- OUTSIDE RECORDS SUMMARY | 2024-09-21 11:18 | XMS_ITS | Encounter Summary ---
Author Organization [employer] Address [address] [place] [address] Care Team Providers Care Wan Support Specialist Name Role Phone Nuzhat Shelton Primary Care Provider [phone] Encounter Details Date Type Department Care Team (Late st Contact Info) Description 07/30/2024 Results Follow-Up [facility] MED[facility]INE [address] [place] [address] Nuzhat Shelton ANP [address] [place] [address] CBC auto differential, Basic Metabolic Panel, C-reactive [...] Description 11/15/2024 11:15 AM EDT Office Visit [facility] MED[facility] [address] [place] [phone] Nuzhat Shelton ANP [address] [place] [address] documented as of this encounter Visit Diagnoses Not on filedocumented in this encounter Additional Health Concerns Assessment Noted Time PHQ-9 Depression Total Score: 0 07/16/19 25 2:29 PM EDT documented as of this encounter Care Teams Wan Support Specialist Relationship Specialty Start Date End Date Nuzhat Shelton ANP [address] [place] [address] PCP - General Family Medicine 04/08/22 documented as of this encounter
== END 2024-09-21 10:17 | disposition home or self-care (01) ==
LOC: HO.US 10:16
PROVIDERS: PCP Nurse Practitioner Primary Care; Visit Provider Nurse Practitioner Family
DX: R10.13 Epigastric pain (principal); R10.11 Right upper quadrant pain
CPT/HCPCS: 76700

== ENCOUNTER → 2024-09-21 10:18 | Outpatient (BNV) | payer MEDICAID, SELFPAY | PROVIDERS: PCP Nurse Practitioner Primary Care; Visit Provider Radiology Vascular & Interventional Radiology | DX: R10.13 Epigastric pain (principal) | CPT/HCPCS: 76700 ==

== ENCOUNTER 2024-09-29 14:08 | Outpatient (AMB) | payer MEDICAID, SELFPAY ==
--- NOTE | 2024-09-29 14:09 | MHC.OFFVIS ---
Intake Visit Reasons: Colpo/EMB results Allergies No Known Allergies Allergy (Verified 09/09/24 08:33) HPI Comments Details: The patient is scheduled a telehealth visit post colpo and for AUB follow-up. The patient is doing well with no complaints. The pathology showed the following: A. Endometrium, biopsy: - Disordered proliferative endometrium. - Endocervical epithelium within normal limits. - No atypia or hyperplasia identified. B. Endocervix, curettage: Rare strips of endocervical epithelium within normal limits; no atypia identified. C. Cervix, 1 o'clock, biopsy: - Low-grade squamous intraepithelial lesion (MARCUS 1). - Background inflamed cervical transformation zone mucosa. D. Cervix, 4 o'clock, biopsy: Inflamed cervical transformation zone mucosa with reactive changes; no atypia identified. E. Cervix, 7 o'clock, biopsy: Inflamed cervical transformation zone mucosa with reactive changes; no atypia identified. F. Cervix, 11 o'clock, biopsy: - Low-grade squamous intraepithelial lesion (MARCUS 1). - Background inflamed cervical transformation zone mucosa. G. Cervix, 12 o'clock, biopsy: - Low-grade squamous intraepithelial lesion (MARCUS 1). - Background inflamed cervical transformation zone mucosa. COMMENT: The findings are concordant with the patient's recent Pap/cytology specimen ([id number] with positive HPV 16) - slide reviewed The following workup was done for AUB: H&H= 14.1/43 TSH, hCG, GC and chlamydia were negative. Co testing was ascus/HPV 16 positive. Pelvic ultrasound showed the following: Uterus: The uterus is normal in size, measuring 9.9 x 4.4 x 5.8 cm. Myometrium has a normal echotexture. There is an anterior fibroid measuring 1.6 x 1.2 x 1.3 cm. Endometrium: The endometrial stripe measures 14 mm in thickness. Right ovary: The right ovary measures 3.2 x 2.0 x 2.6 cm. The right ovary is normal in size and echotexture. Left ovary: The left ovary measures 3.3 x 1.7 x 2.2 cm. The left ovary is normal in size and echotexture. Pelvic fluid: none. US/US pelvic and transvaginal IMPRESSION: 1.6 x 1.2 x 1.3 cm anterior uterine fibroid. Thickened endometrial stripe. The ovaries are unremarkable. [facility] Medical History (Updated 09/29/24 @ 14:19 by Mac Hollis MD) Dysplasia of cervix, low grade (MARCUS 1) Uterine fibroid Constipation Surgical History Hx of myomectomy Hx of tubal ligation Hx of removal of cyst Family History Father Cancer Paternal Aunt Cancer Paternal Grandmother Cancer of abdominal wall Mother Uterus cancer Abdominal tumor Diabetes Ovarian cancer HTN (hypertension) Social History Household Members: None Housing: Apartment Alcohol intake: current Alcohol intake frequency: holidays/special occasions only Patient Tobacco Use Status: Never used Tobacco Current occupational status: employed 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 Sexual orientation: Straight/Heterosexual Gender identity: Female Review of Systems Const All systems reviewed & are unremarkable except as noted in HPI and below Reports as per HPI and Reports no additional complaints GI Reports no additional complaints Reports no additional complaints Telehealth Telehealth Telehealth Platform: [employer] Location of provider rendering services: practice address Location of patient: address on file Patient Identification confirmed using: Name, : Yes Telehealth method: video Patient verbally consented to treatment: Yes Patient verbally consented to billing insurance company: Yes Patient informed of any privacy concerns related to visit: Yes Minutes spent on Phone/Video with Pt.: 8 Assessment & Plan Assessment & Plan (1) Abnormal uterine bleeding (AUB): Code(s): N93.9 - Abnormal uterine and vaginal bleeding, unspecified Category: Medical Plan: Discussed with the patient the results of the work up done and options of treatment including Lysteda, control pills, Mirena IUD, endometrial ablation and hysterectomy. All pros, cons, risks and benefits if each option was discussed with the patient and the patient decided to go ahead with Mirena IUD so a more detailed discussion about it was conducted including mechanism of action, risks (uterine perforation, infection, injury to bladder, bowel, displacement, and others) benefits (hypo menorrhea, amenorrhea, ...). GC/CT were taken and the patient was instructed to schedule Mirena IUD insertion on day 1-5 of next cycle . All questions answered, the patient verbalized understanding (2) Dysplasia of cervix, low grade (MARCUS 1): Comment: 2024 ASCUS HPV 16 positive, colpo bx= MARCUS I Code(s): N87.0 - Mild cervical dysplasia Category: Medical Plan: Discussed with the patient the pathology results of the colposcopy biopsies & endocervical curettage ( mild dysplasia-MARCUS 1). Discussed with the patient the sensitivity specificity, positive and negative predictive value in detecting cervical cancer in addition discussed the regression, persistence and progression rates. Recommended co-testing in 12 months, if cytology and or HPV are abnormal will proceed was colposcopy biopsy and endocervical curettage, if lesions gets worse or stays persistent for 2 years will proceed with loop electric excision procedure. Instructions given to the patient to schedule a co test appointment in 1 year. All questions answered the patient verbalized understanding. (3) Uterine fibroid: Code(s): D25.9 - Leiomyoma of uterus, unspecified Category: Medical Qualifiers: Uterine leiomyoma location: unspecified location Qualified Code(s): D25.9 - Leiomyoma of uterus, unspecified Plan: Discussed with the patient the findings on pelvic ultrasound & the risk of myosarcoma; in addition reviewed with the patient that malignancy and pre malignancy cannot be ruled out without hysterectomy for pathological evaluation ; furthermore, explained to the patient the limitation of pelvic ultrasound and endometrial biopsy in the setting. Discussed with the patient the options of treatment including expectant management versus hysterectomy; the pros and cons, risks benefits of each approach were discussed with the patient including the fact that in cases of myosarcoma, surgical treatment can lead to early diagnosis and positively affects the prognosis; after further discussion, the patient decided to proceed with expectant management. Will repeat pelvic ultrasound periodically. Instructions given to patient to call in case any of the following occurs: pressure symptoms, abnormal uterine bleeding, pelvic pain; and to schedule a six-months pelvic ultrasound (order placed) and a follow-up appointment . All questions answered, the patient verbalized understanding and agreed with the plan . I spent a total of 20 minutes reviewing the chart, talking to the patient via video and documenting in the medical record. Orders: Orders US pelvic and transvaginal 6 Months D25.9 - Leiomyoma of uterus, unspecified Coding Level of Care Code Tele Est Pt Level 3 (19885) Diagnoses Abnormal uterine bleeding (AUB) N93.9 Dysplasia of cervix, low grade (MARCUS 1) N87.0 Uterine leiomyoma, unspecified location D25.9 Uterine leiomyoma location: unspecified location
--- OUTSIDE RECORDS SUMMARY | 2024-09-29 15:03 | XMS_ITS | Encounter Summary ---
Author Organization [employer] Address [address] [address] [place] [address] Care Team Providers Care Equipment Manager Name Role Phone Nuzhat Shelton Primary Care Provider [phone] Encounter Details Date Type Department Care Team (Late st Contact Info) Description 07/30/2024 Results Follow-Up [facility] MEDICINE [address] [place] [address] Nuzhat Shelton ANP [address] [place] [address] CBC auto differential, Basic Metabolic Panel, C-reactive [...] with others, in a hotel, in a nursing home, living outside on the street, on [...] Description 11/15/2024 11:15 AM EDT Office Visit [facility] [address] [place] [phone] Nuzhat Shelton ANP [address] [place] [address] documented as of this encounter Visit Diagnoses Not on filedocumented in this encounter Additional Health Concerns Assessment Noted Time PHQ-9 Depression Total Score: 0 07/16/19 25 2:29 PM EDT documented as of this encounter Care Teams Equipment Manager Relationship Specialty Start Date End Date Nuzhat Shelton ANP [address] [place] [phone] PCP - General Family Medicine 04/08/22 documented as of this encounter
== END 2024-09-29 14:26 | disposition home or self-care (01) ==
LOC: HO.HWS 14:08
PROVIDERS: PCP Nurse Practitioner Primary Care; Visit Provider Obstetrics & Gynecology
DX: N93.9 Abnormal uterine and vaginal bleeding, unspecified (principal); N87.0 Mild cervical dysplasia; D25.9 Leiomyoma of uterus, unspecified
CPT/HCPCS: 99213

== ENCOUNTER 2024-10-06 09:39 | Outpatient (AMB) | payer MEDICAID, SELFPAY ==
[2024-10-06 09:44] VITALS: BMI 34.7
--- NOTE | 2024-10-06 09:44 | A.OFFVIS_ITS ---
Vital Signs 10/06/24 09:44 Height 5 ft 3 in Weight 196 lb BMI 34.7 Intake Visit Reasons: Mirena insertion Wet Process Operator Required: No Information Interpreted: non-clinical & clinical Coiled Tubing Supervisor: Coiled Tubing Supervisor Present (Renetta WYMAN) Accompanied by: Self / Same As Patient Allergies No Known Allergies Allergy (Verified 10/06/24 09:51) PFSH Medical History (Updated 10/06/24 @ 10:04 by Mac Hollis MD) Dysplasia of cervix, low grade (MARCUS 1) Uterine fibroid Constipation Surgical History Hx of myomectomy Hx of tubal ligation Hx of removal of cyst Family History Father Cancer Paternal Aunt Cancer Paternal Grandmother Cancer of abdominal wall Mother Uterus cancer Abdominal tumor Diabetes Ovarian cancer HTN (hypertension) Social History Household Members: None Housing: Apartment Alcohol intake: current Alcohol intake frequency: holidays/special occasions only Patient Tobacco Use Status: Never used Tobacco Current occupational status: employed 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 The following possible complications were discussed with the patient: Intrauterine , Ectopic , Sepsis, Pelvic Infection, Irregular Bleeding and Amenorrhea, Perforation, Expulsion, Ovarian Cysts, Breast Cancer, The following adverse effects were discussed with the patient: alteration of menstrual bleeding pattern, including: unscheduled uterine bleeding decreased uterine bleeding increased scheduled uterine bleeding female genital tract bleeding ,amenorrhea , genital discharge , vulvovaginitis , breast pain , benign ovarian cyst and associated complications , dysmenorrhea , Gastrointestinal disorders abdominal/pelvic pain, headache/migraine , back pain , acne , depression Alternative options were discussed with the patient including but not limited: control pills, patch, NuvaRing, Depo-medroxyprogesterone acetate, Nexplanon, copper IUD, sterilization, vasectomy, others The procedure was explained in detail to patient , at the end patient signed the informed consent obtained. A no touch technique was used throughout the procedure. A speculum was placed into vagina and cervix was cleaned with betadine). A tenaculum was placed. A plastic sound was advanced through the external and internal os until it reached the fundus of the uterus, the depth was 8 cm. The sound was then withdrawn. The IUD was loaded in a sterile manner and advanced into position. The string was visualized and cut to 3 cm. Tenaculum site hemostatic. All instruments removed from vagina. Patient tolerated the procedure well. NO complications were noted. Patient was instructed to call for fever over 100.4, significant pain unrelieved by Motrin, IUD expulsion, heavy bleeding, or abnormal discharge. In addition, the following clinical considerations were discussed with the patient to call for removal: A stroke or heart attack ,Very severe or migraine headaches ,Unexplained fever ,Yellowing of the skin or whites of the eyes, as these may be signs of serious liver problems , or suspected , Pelvic pain or pain during sex ,HIV positive seroconversion in herself or her partner , Possible exposure to sexually transmitted infections Unusual vaginal discharge or genital sores , severe vaginal bleeding or bleeding that lasts a long time, or if she misses a menstrual period, Inability to feel Mirena's threads Counseled the patient that the IUD does not protect against STI's, recommended use of condoms for the first 7 days post insertion and explained to the patient that condoms are recommended for patients at risk for sexually transmitted infections. Informed the patient that Mirena IUD is FDA approved for 8 years for contraception for 5 years for the treatment of heavy menses Instructed the patient to schedule a Follow up appointment in 4 to 6 weeks following insertion. This note was generated with a voice recognition program. Some errors may have been overlooked during the review of this note. Sometimes these errors may affect the content or meaning of a given sentence. [id number] Insertion Procedure code (CPT) selection complete Office Meds Mirena 21 mcg/24 hr (up to 8 years) 52 mg intrauterine device Performing Provider: Mac Hollis MD Performing Location: [facility] [place] [facility] Documented (not given) by: Mac Hollis MD on 10/06/24 10:05 Dose Route Admin Location Dispensed Lot Number Expiration Date [facility] Body And Frame Man 1 device intrauterine ea Total Dispensed Waste n/a n/a Results AMB Test Urine AMB Test Urine Negative Last Edit by Renetta Emery, TRANSPORT ENGINEER on 09:53 Results Reviewed Results Reviewed: Laboratory Last Values [facility] Negative 10/06/24 09:52 Assessment & Plan Assessment & Plan (1) Abnormal uterine bleeding (AUB): Code(s): N93.9 - Abnormal uterine and vaginal bleeding, unspecified Category: Medical Plan: Screening mammogram ordered. Mirena IUD inserted, see procedure Orders: Orders MM tomosynthesis screening BI Today Z12.31 - Encounter for screening mammogram for malignant neoplasm of breast AMB IUD Insertion/Removal - Practice Supplied Today Z30.430 - Encounter for insertion of intrauterine contraceptive device AMB HCG Urine Test Today Z32.02 - Encounter for test, result negative Medications: New Mirena (levonorgestrel) 1 device intrauterine ONCE 1 ea 0RF AUB NS Z30.430 - Encounter for insertion of intrauterine contraceptive device Coding Level of Care Code Procedure Only Diagnoses Abnormal uterine bleeding (AUB) N93.9 CPT Codes Details - CPT: 86378-SBF Insertion ([id number])
--- OUTSIDE RECORDS SUMMARY | 2024-10-06 10:17 | XMS_ITS | Clinical Summary ---
Author Organization [employer] Address [address] [facility] [address] [place] [address] Care Team Providers Care Therapist Speech Name Role Phone Noe Saini Primary Care Provider [phone] Allergies No known active allergies Medications acetaminophen [...] [facility]. Prescribed Ambien 10 mg, Klonopin 1 mg 10/18/[address] [facility]. Enlarged thyroid 12/26/2016 Overview (07/01/2022): Noted [...] Encounters Date Type Department Care Team Description 09/21/2024 Orders Only [facility] External Provider, [facility] 09/07/[address] [address] Denisa Christiansen CNM No Show 09/06/[address] [address] Noe Saini ANP Chart Prep 09/01/[address] [address] Noe Saini ANP No Show (Pt no show for sick on site/ ) 09/01/[address] [address] Noe Saini ANP Nurse Triage 08/25/[address] [address] Noe Saini ANP October recall 07/30/2024 [facility] [address] [address] [place] [address] Noe Saini ANP CBC auto differential, Basic Metabolic Panel, C-reactive Protein 07/29/2024 Orders Only GENERIC EXTERNAL DATA DEPARTMENT Provider, Generic External Data 07/16/2024 Refill [facility] [place] [address] Noe Saini ANP Rash 07/15/2024 2:15 PM EDT Office Visit [address] [address] Noe Saini ANP Irregular menses (Primary Dx); Endometrial thickening on ultrasound; Cervical adenopathy 07/15/2024 Travel 07/14/2024 Telephone [facility] [place] [address] Noe Saini ANP chart prep 07/12/2024 Telephone [facility] [place] [address] Noe Saini ANP Results 07/12/2024 Results Follow-Up [facility] [place] [address] Noe Saini ANP US Thyroid from Last 3 Months Immunizations Immunization Administration [...] with others, in a hotel, in a [place] [facility], living outside on the street, on a [...] Sign Reading Time Taken Comments Blood Pressure 118/70 07/15/2024 2:28 PM EDT Pulse 66 07/15/2024 2:28 PM EDT Temperature 36.3 C (97.3 F) 07/15/2024 2:28 PM EDT Respiratory Rate 20 07/15/2024 2:28 PM EDT Oxygen Saturation 99% 07/15/2024 2:28 PM EDT Inhaled Oxygen Concentration - - Weight 91.5 kg (201 lb 12.8 oz) 07/15/2024 2:28 PM EDT Height 160 cm (5' 3 ) 07/15/2024 2:28 PM EDT Body Mass Index 35.75 07/15/2024 2:28 PM EDT Plan of Treatment Upcoming Encounters Date Type Department Care Team (Late st Contact Info) Description 11/15/2024 11:15 AM EDT Office Visit [facility] [address] [place] [address] Noe Saini ANP [address] [place], [place] [phone] Health Maintenance Due Date Last Done Comments Family Planning (PISQ) 10/07/1999 HPV Vaccines (1 - 3-dose series) 10/07/1999 Pap Smear 2005 Cervical Cancer Screening 2014 HPV/Cotest 2014 COVID-19 Vaccine ( season) 2023 Influenza Vaccine (#1) 2024 , 01/31/2020, 12/24/2016, Additional history exists SDOH Screening 05/27/2025 05/27/2024 Alcohol/Substance Use Screening 06/04/2025 06/04/2024 Disability Screening 06/04/2025 06/04/2024 Depression Screening 07/15/2025 07/15/2024, 07/16/19 Tobacco Screening 07/15/2025 07/15/2024 DTaP/Tdap/Td Vaccines (3 - Td or Tdap) 01/30/2030 01/31/2020, 03/16/2011 Zoster Vaccines (1 of 2) 2034 RSV Patients and Patients Aged 60 years or older (1 - 1-dose 75+ series) 10/07/2059 Pneumococcal Vaccine: Pediatrics (0 to 5 Years) and At-Risk Patients (6 to 49) Years Completed 03/12/2023, 07/15/2012 HIV Screening Completed 08/16/2024, 05/12, 07/01/2022, Additional history exists Hepatitis C Screening Completed 08/16/2024 , 06/04/2024, 12/29/2020 HIB Vaccines Aged Out No longer eligi [...] Name Priority Date/Time Associated Diagnosis Comments US ABDOMEN COMPLETE Routine 09/21/2024 1 2:53 PM EDT HELICOBACTER PYLORI, UREA BREATH TEST Routine 08/27/2024 12:30 PM EDT SYPHILIS SCREEN Routine 08/16/2024 10:20 AM EDT HEPATITIS B SURFACE ANTIGEN, EIA Routine 08/16/2024 10:20 AM EDT HIV 1/2 ANTIGEN/ANTIBODY, FOURTH GENERATION W/RFL Routine 08/16/2024 10:20 AM EDT HEPATITIS C ANTIBODY Routine 08/16/2024 10:20 AM EDT HCG, TOTAL, QN Routine 08/16/2024 10:20 AM EDT TSH W/REFLEX TO FT4 Routine 08/16/2024 1 0:20 AM EDT CBC Routine 08/16/2024 10:20 AM EDT BASIC METABOLIC PANEL Routine 07/30/2024 9:13 AM EDT C-REACTIVE PROTEIN Routine 07/29/2024 2: 23 PM EDT BASIC METABOLIC PANEL Routine 07/29/2024 2:23 PM EDT CBC WITH AUTO DIFFERENTIAL Routine 07/29/2024 2:23 PM EDT US PELVIS TRANSVAGINAL Routine 07/09/2024 3:03 PM EDT Irregular menses US THYROID Routine 07/09/2024 2:43 PM EDT Enlarged thyroid from Last 3 Months Results * US Abdomen Complete (09/21/2024 12:53 PM EDT) Anatomical Region Laterality Modality Abdomen Ultrasound 09/21/2024 12:5 3 PM EDT Narrative 09/21/2024 12:56 PM EDT [place] [address] Ultrasound Report Signed Patient: Juany Harper MR#: [id number] : 1985 Acct:[id number] Age/Sex: 38 / F ADM Date: 09/21/24 Loc: HO.US Attending Dr: Veda Gramajo CNP Ordering Physician: Veda Gramajo CNP Date of Service: 09/21/24 Procedure(s): US abdomen complete Accession Number(s): [id number] cc: NOE SAINI SUPERVISOR BROADLOOM; Veda Gramajo CNP CLINICAL HISTORY: R10.13 - Epigastric pain --- Additional Notes or Special Instructions: RUQ epigastric pain US abdomen complete Comparison: CT/SR - CT ABDOMEN PELVIS WITHOUT IV CONTRAST - 09/18/21 17:55 EDT Findings: The visualized pancreas is normal. The aorta and inferior vena cava are normal caliber. The liver is normal in size and increased in echotexture. There is no intrahepatic bile duct dilatation. The common duct is 5 mm in diameter. The gallbladder is normal. There is no sonographic Feng sign. The main portal vein is antegrade. The right kidney is 10 cm in length. The left kidney is 10.5 cm in length. The spleen is normal. No ascites. IMPRESSION: Mild hepatic steatosis. No acute process. This document has been electronically signed by: Rickie Burgos MD on 09/21/2024 12:53:56 Dictated By: Rickie Burgos MD Signed By: <Electronically signed by Rickie Burgos MD in OV> 09/21/241254 DD/ 125 TD/TT: 09/21/241252 Supervising Film Or Videotape Editor: Procedure Note Donotuseinterpreter, Image - 09/21/[address] [address] Ultrasound Report Signed Patient: Juany Harper MMR#: [id number] : 1985Acct:[id number] Age/Sex: 38 / FADM Date: 09/21/24 Loc: HO.US Attending Dr: Veda Gramajo CNP Ordering Physician: Veda Gramajo CNP Date of Service: 09/21/24 Procedure(s): US abdomen complete Accession Number(s): [id number] cc: NOE SAINI SUPERVISOR BROAD[employer]OM; Veda Gramajo CNP CLINICAL HISTORY: R10.13 - Epigastric pain --- Additional Notes or SpecialInstructions: RUQ epigastric pain US abdomen complete Comparison: CT/SR - CT ABDOMEN PELVIS WITHOUT IV CONTRAST - 09/18/21 17:55 EDT Findings: The visualized pancreas is normal. The aorta and inferior vena cava are normal caliber. The liver is normal in size and increased in echotexture. There is no intrahepatic bile duct dilatation. The common duct is 5 mm in diameter. The gallbladder is normal. There is no sonographic Feng sign. The main portal vein is antegrade. The right kidney is 10 cm in length. The left kidney is 10.5 cm in length. The spleen is normal. No ascites. IMPRESSION: Mild hepatic steatosis. No acute process. This document has been electronically signed by: Rickie Burgos MD on 09/21/2024 12:53:56 Dictated By: Rickie Burgos MD Signed By: <Electronically signed by Rickie Burgos MD in OV> 09/21/241254 DD/ 52 TD/TT: 09/21/241252 Supervising Film Or Videotape Editor: us [facility] External Provider IMG US PROCEDURES Edited Result - Final * Helicobacter pylori, Urea Breath Test (08/27/2024 12:30 PM EDT) H. pylori Breath Test Negative Negative [facility] Comment:Antimicrobials, prot on pump inhibitors and bismuthpreparations are known to suppress H. pylori. Ingestingthese medications within two weeks prior to performing thebreath test may produce negative test results. A positiveresult is still clinically valid. 08/27/2024 12:3 0 PM EDT 08/27/2024 4:42 PM EDT Generic External Data Provider LAB BODY FLUIDS A ND STOOLS ORDERABLES Final Result Performing Organization Address [facility] Co de Phone Number [facility] [address] [place] [phone] * Syphilis Screen (08/16/2024 10:20 AM EDT) Pathologist [facility] Syphilis Screen Nonreactive Nonreactive [facility] 08/16/2024 10:2 0 AM EDT 08/16/2024 10:20 AM EDT Generic External Data Provider LAB BLOOD ORDERAB LES Final Result Performing Organization Address [facility] Phone Number [facility] [address] [place] [phone] * Hepatitis C Ab (08/16/2024 10:20 AM EDT) Pathologist [facility] Hepatitis C Antibody Nonreactive Nonreactive [facility] Comment:Antibodies to HCV no t detected; does not exclude early acuteHCV infection. 08/16/2024 10:2 0 AM EDT 08/16/2024 10:20 AM EDT Generic External Data Provider LAB BLOOD ORDERAB LES Final Result Performing Organization Address [facility] de Phone Number [facility] [address] [place] [phone] * TSH with Reflex to Free T4 (08/16/2024 10:20 AM EDT) TSH reflex Free T4 1.53 0.32 - 4.0 uIU/mL [facility] 08/16/2024 10:2 0 AM EDT 08/16/2024 10:20 AM EDT Generic External Data Provider LAB BLOOD ORDERAB LES Final Result Performing Organization Address [facility] Co de Phone Number [facility] [address] [place] [phone] * Hepatitis B surface antigen, EIA (08/16/2024 10:20 AM EDT) Hepatitis B Surface Ag Negative Negative [facility] 08/16/2024 10:2 0 AM EDT 08/16/2024 10:20 AM EDT Generic External Data Provider LAB BLOOD ORDERAB LES Final Result Performing Organization Address [facility] de Phone Number [facility] [address] [place] [phone] * HIV-1/2 Antigen and Antibodies, Fourth Generation, with Reflexes (08/16/2024 10:20 AM EDT) HIV AB/AG Nonreactive Nonreactive [facility] Comment:HIV-1 p24 Ag and/or HIV-1/HIV-2 Ab not detected.A test result that is nonreactive does not exclude thepossibility of exposure to or infection with HIV-1 and/orHIV-2. Nonreactive results in this assay for individualswith prior exposure to HIV-1 and/or HIV-2 may be due toantigen and antibody levels that are below the limit ofdetection of this assay.The [employer] HIV Ag/Ab Combo assay result andsupplemental assay results should be interpreted inconjunction with the patient's clinical presentation,history and other laboratory results. If the results areinconsistent with clinical evidence, additional testing issuggested to confirm the result. 08/16/2024 10:2 0 AM EDT 08/16/2024 10:20 AM EDT us Generic External Data Provider LAB BLOOD ORDERAB LES Final Result Performing Organization Address [facility]/ZIP Co de Phone Number [facility] [address] [place] [phone] * CBC (08/16/2024 10:20 AM EDT) White Blood Count 6.9 4.8 - 10.8 X10*3/uL [facility] Red Blood Count 4.92 4.20 - 5.50 X10*6/uL [facility] Hemoglobin 14.1 12.0 - 16.0 g/dl [facility] Hematocrit 43.0 37.0 - 47.0 % [facility] Mean Corpuscular Volume 87.4 80.0 - 98.0 fL [facility] Mean Corpuscular Hemoglobin 28.7 27.0 - 33.0 pg [facility] Mean Corpuscular HGB Conc 32.8 31.0 - 35.0 g/dl [facility] Red Cell Distribution Width 12.3 11.0 - 16.0 % [facility] Platelet Count 242 160 - 400 X10*3/uL [facility] Mean Platelet Volume 10.0 9.4 - 12.3 fL [facility] NRBC Pct Auto 0.0 0.0 - 0.2 /100WBC [facility] NRBC Abs Auto 0.000 0.0 - 0.012 X10*3/uL [facility] 08/16/2024 10:2 0 AM EDT 08/16/2024 10:20 AM EDT us Generic External Data Provider LAB BLOOD ORDERAB LES Final Result Performing Organization Address [facility]/ZIP Co de Phone Number [facility] [address] [place] [phone] * hCG, Total, Quantitative (08/16/2024 10:20 AM EDT) HCG Quantitative <2 mIU/mL [facility] Comment:Weeks post LMP Appro ximate hCG(Last Menstrual Period) Range (mIU/ml)3 - 4 weeks 9 - 1304 - 5 weeks 75 - 2,6005 - 6 weeks 850 - 20,8006 - 7 weeks 4000 - 100,2007 - 12 weeks 11,500 - 289,17170 - 16 weeks 18,300 - 137,55532 - 29 weeks (2nd trimester) 1,400 - 53,48305 - 41 weeks (3rd trimester) 940 - 60,000The Gutierrez B- hCG assay is used for the early detection ofpregnancy; it cannot be used to diagnose any conditionunrelated to . If a B-hCG level is not supportedby the clinical evidence, results should be confirmed by analternative method (qualitative urine hCG, for example). 08/16/2024 10:2 0 AM EDT 08/16/2024 10:20 AM EDT us Generic External Data Provider LAB BLOOD ORDERAB LES Final Result [facility] [address] [place] [phone] * (ABNORMAL) Basic Metabolic Panel (07/30/2024 9:13 AM EDT) Only the most recent of2 resultswithin the time period is included. Sodium 138 135 - 145 mmol/L [facility] Potassium 4.5 3.3 - 5.1 mmol/L [facility] Chloride 105 96 - 108 mmol/L [facility] Carbon Dioxide 28 22 - 29 mmol/L [facility] Anion Gap 10(L) 12 - 20 [facility] Urea Nitrogen (BUN) 11 9 - 16 mg/dL [facility] Creatinine, Serum 0.94 0.5 - 1.4 mg/dL [facility] Estimated Glomerular Filt Rate >60 [facility] Comment:Chronic Kidney Disea se: Estimated GFR < 60 mL/min/1.05u6Rcbqom Kidney Disease: Estimated GFR < 15 mL/min/1.73m2 Glucose 84 60 - 115 mg/dL [facility] Calcium 9.3 8.4 - 10.2 mg/dL [facility] 07/30/2024 9:13 AM EDT 07/30/2024 9:13 AM EDT us Generic External Data Provider LAB BLOOD ORDERAB LES Final Result [facility] [address] [place] [phone] * CBC auto differential (07/29/2024 2:23 PM EDT) White Blood Count 7.1 4.8 - 10.8 X10*3/uL [facility] Red Blood Count 4.99 4.20 - 5.50 X10*6/uL [facility] Hemoglobin 14.2 12.0 - 16.0 g/dl [facility] Hematocrit 43.9 37.0 - 47.0 % [facility] Mean Corpuscular Volume 88.0 80.0 - 98.0 fL [facility] Mean Corpuscular Hemoglobin 28.5 27.0 - 33.0 pg [facility] Mean Corpuscular HGB Conc 32.3 31.0 - 35.0 g/dl [facility] Red Cell Distribution Width 12.4 11.0 - 16.0 % [facility] Platelet Count 234 160 - 400 X10*3/uL [facility] Mean Platelet Volume 9.4 9.4 - 12.3 fL [facility] Neutrophils Percent Auto 60.7 45 - 73 % [facility] Imm Gran Pct Auto 0.1 0.0 - 0.4 % [facility] Lymphocytes Percent Auto 29.8 20 - 40 % [facility] Monocytes Percent Auto 7.8 2 - 11 % [facility] Eosinophils Percent Auto 1.3 0 - 4 % [facility] Basophils Percent Auto 0.3 0 - 2 % [facility] NRBC Pct Auto 0.0 0.0 - 0.2 /100WBC [facility] Neutrophils Absolute Auto 4.3 2.0 - 8.3 x10*3/uL [facility] Imm Gran Abs Auto 0.01 0.00 - 0.03 X10*3/uL [facility] Lymphocytes Absolute Auto 2.1 1.2 - 4.9 X10*3/uL [facility] Monocytes Absolute Auto 0.6 0.1 - 1.2 X10*3/uL [facility] Eosinophils Absolute Auto 0.1 0.0 - 0.4 X10*3/uL [facility] Basophils Absolute Auto 0.0 0.0 - 0.2 X10*3/uL [facility] NRBC Abs Auto 0.000 0.0 - 0.012 X10*3/uL [facility] 07/29/2024 2:23 PM EDT 07/29/2024 2:23 PM EDT Generic External Data Provider LAB BLOOD ORDERAB LES Final Result Performing Organization Address [facility]/ZIP Co de Phone Number [facility] [address] [place] [phone] * C-reactive Protein (07/29/2024 2:23 PM EDT) C Reactive Protein 0.34 < or = 0.50 mg/dL [facility] 07/29/2024 2:23 PM EDT 07/29/2024 2:23 PM EDT Generic External Data Provider LAB BLOOD ORDERAB LES Final Result Performing Organization Address [facility] Co de Phone Number [facility] [address] [place] [phone] * US Pelvis Transvaginal (07/09/2024 3:03 PM EDT) Anatomical Region Laterality Modality Pelvis Ultrasound 07/09/2024 3:03 PM EDT Narrative 07/09/2024 3:55 PM EDT [place] [address] Ultrasound Report Signed Patient: Juany Harper MR#: [id number] : 1985 Acct:[id number] Age/Sex: 38 / F ADM Date: 07/09/24 Loc: HO.US Attending Dr: Noe Saini NP Ordering Physician: NOE SAINI NP Date of Service: 07/09/24 Procedure(s): US pelvic and transvaginal Accession Number(s): [id number] cc: NOE SAINI NP EXAMINATION: US PELVIS [...] Fortunato Perkins MD 07/09/2024 03:52 PM EDT Dictated By: Fortunato Perkins MD Signed By: <Electronically signed by Fortunato Perkins MD in OV> 07/09/24 1552 DD/ 1503 TD/TT: 07/09/24 1521 Supervising Film Or Videotape Editor: Procedure Note Donotuseinterpreter, Image - 07/09/2024 [place] [address] Ultrasound Report Signed Patient: Juany Harper MMR#: [id number] : 1985Acct:[id number] Age/Sex: 38 / FADM Date: 07/09/24 Loc: HO.US Attending Dr: Noe Saini NP Ordering Physician: NOE SAINI NP Date of Service: 07/09/24 Procedure(s): US pelvic and transvaginal Accession Number(s): [id number] cc: NOE SAINI NP EXAMINATION: US PELVIS [...] Fortunato Perkins MD 07/09/2024 03:52 PM EDT Dictated By: Fortunato Perkins MD Signed By: <Electronically signed by Fortunato Perkins MD in OV> 07/09/24 1552 DD/ 1503 TD/TT: 07/09/24 1521 Supervising Film Or Videotape Editor: us Noe Saini ANP IMG US PROCEDURES Edited Result - Final * US Thyroid (07/09/2024 2:43 PM EDT) Anatomical Region Laterality Modality Head, Neck Ultrasound 07/09/2024 2:43 PM EDT Narrative 07/09/2024 3:46 PM EDT [place] [address] Ultrasound Report Signed Patient: Juany Harper MR#: [id number] : 1985 Acct:[id number] Age/Sex: 38 / F ADM Date: 07/09/24 Loc: HO.US Attending Dr: Noe Saini NP Ordering Physician: NOE SAINI NP Date of Service: 07/09/24 Procedure(s): US thyroid Accession Number(s): [id number] cc: NOE SAINI NP EXAMINATION: US THYROID [...] Fortunato Perkins MD 07/09/2024 03:43 PM EDT Dictated By: Fortunato Perkins MD Signed By: <Electronically signed by Fortunato Perkins MD in OV> 07/09/24 1543 DD/ 1443 TD/TT: 07/09/24 1454 Supervising Film Or Videotape Editor: Procedure Note Donotuseinterpreter, Image - 07/09/2024 [place] [address] Ultrasound Report Signed Patient: Juany Harper [facility]#: [id number] : 1985Acct:[id number] Age/Sex: 38 / FADM Date: 07/09/24 Loc: HO.US Attending Dr: Noe Saini NP Ordering Physician: NOE SAINI NP Date of Service: 07/09/24 Procedure(s): US thyroid Accession Number(s): [id number] cc: NOE SAINI NP EXAMINATION: US THYROID [...] 07/09/24 1543 DD/ 1443 TD/TT: 07/09/24 1454 Supervising Film Or Videotape Editor: us Noe [facility] IMG US PROCEDURES Edited Result - Final from Last 3 Months Insurance [facility] C3 Care Teams Therapist Speech Relationship Specialty Start Date End Date Noe Saini ANP [address] [place] [phone] PCP - General Family Medicine 04/08/22
--- OUTSIDE RECORDS SUMMARY | 2024-10-06 10:17 | XMS_ITS | Encounter Summary ---
Author Organization [employer] Address [address] [facility] 7t [place] [address] Care Team Providers Care Rubber Stamp Die Inspector Name Role Phone Nuzhat Shelton Primary Care Provider [phone] Reason for Visit * Reason Onset Date Comments Medication Question 05/14/2024 Encounter Details Date Type Department Care Team ([facility] st Contact Info) Description 05/14/2024 Telephone [facility] [address] [place] [address] Nuzhat Shelton ANP [address] [place] [address] Medication Question Social History Tobacco Use Types [...] like to loose weight. Please return call [phone] documented in this encounter Plan of Treatment Upcoming Encounters Date Type Department Care Team (Late st Contact Info) Description 11/15/2024 11:15 AM EDT Office Visit [facility] [address] [place] [address] Nuzhat Shelton ANP [address] [place] [address] documented as of this encounter Visit Diagnoses Not on filedocumented in this encounter Additional Health Concerns Assessment Noted Time PHQ-9 Depression Total Score: 12 023 10:59 AM EDT documented as of this encounter Care Teams Rubber Stamp Die Inspector Relationship Specialty Start Date End Date Nuzhat Shelton ANP [address] [place] [phone] PCP - General Family Medicine 04/08/22 documented as of this encounter
--- OUTSIDE RECORDS SUMMARY | 2024-10-06 10:18 | XMS_ITS | Encounter Summary ---
Author Organization [employer] Address [address] [facility] 7t [place] [address] Care Team Providers Care Jump Roll Operator Name Role Phone Nuzhat Shelton Primary Care Provider [phone] Reason for Visit * Reason Comments Med Refill Encounter Details Date Type Department Care Team ([facility] Contact Info) Description 07/16/2024 Refill [facility] [address] [place], [place] [phone] Nuzhat Shelton ANP [address] [place], [place] [phone] Rash Social History Tobacco Use Types Packs/Day Years [...] with others, in a hotel, in a detention, living outside on the street, on a [...] as of this encounter Plan of Treatment Upcoming Encounters Date Type Department Care Team (Late st Contact Info) Description 11/15/2024 11:15 AM EDT Office Visit [facility] [address] [place] [address] Nuzhat Shelton ANP [address] [place] [address] documented as of this encounter Visit Diagnoses Diagnosis Rash Rash and other nonspecific skin eruption documented in this encounter Additional Health Concerns Assessment Noted Time PHQ-9 Depression Total Score: 0 07/16/19 25 2:29 PM EDT documented as of this encounter Care Teams Jump Roll Operator Relationship Specialty Start Date End Date Nuzhat Shelton ANP [address] [place] [phone] PCP - General Family Medicine 04/08/22 documented as of this encounter
== END 2024-10-06 10:13 | disposition home or self-care (01) ==
LOC: HO.HWS 09:39
PROVIDERS: PCP Nurse Practitioner Primary Care; Visit Provider Obstetrics & Gynecology
DX: Z30.430 Encounter for insertion of intrauterine contraceptive device (principal); N93.9 Abnormal uterine and vaginal bleeding, unspecified; Z32.02 Encounter for pregnancy test, result negative
CPT/HCPCS: 58300

== ENCOUNTER → 2024-10-06 09:39 | Outpatient (BNVA) | payer MEDICAID, SELFPAY | PROVIDERS: PCP Nurse Practitioner Primary Care; Visit Provider Obstetrics & Gynecology | DX: Z30.430 Encounter for insertion of intrauterine contraceptive device (principal); Z32.02 Encounter for pregnancy test, result negative | CPT/HCPCS: 58300; 81025; J7298 ==

== ENCOUNTER 2024-11-10 13:44 | Outpatient (AMB) | payer MEDICAID, SELFPAY ==
[2024-11-10 14:04] VITALS: BP 134/61; PULSE 69; O2SAT 98; BMI 35.8
--- NOTE | 2024-11-10 14:04 | A.OFFVIS_ITS ---
Vital Signs 11/10/24 14:04 Height 5 ft 3 in Weight 202 lb BMI 35.8 BP 134/61 Blood Pressure Location Lt brachial Position Sitting Pulse 69 Pulse Oximetry (%) 98 Oxygen Delivery Method Room Air Intake Visit Reasons: US results Intake Note: Patient followup for US, lab and h pylori results Patient cc: abdominal pain on and off, constipation x more than 4 dates with out any BM, denies any other GI issues. Accompanied by: family Allergies No Known Allergies Allergy (Verified 11/10/24 14:03) Medication List - Last Reconciled 11/10/24 by Veda Gramajo CNP albuterol sulfate 90 mcg/actuation 2 inhalations inhalation Q4-6H PRN fluticasone propionate 50 mcg/actuation (Flonase Allergy Relief) 1 spray intranasal DAILY methylcellulose (laxative) (Citrucel) 500 mg PO DAILY omeprazole 20 mg PO DAILY polyethylene glycol 3350 (Miralax) 17 grams PO DAILY sucralfate 1 g PO TID HPI HPI US results: Details: Patient is a 38-year-old female with PMH of obesity and fatty F/u for ongoing epigastric pain, chronic constipation, and intermittent reflux sx. She is accompanied by her partner. Pt continues to experience chronic constipation, unchanged since prior visit, with current interval of 4d without BM. Longstanding hx of infrequent BMs; unable to restart prescribed Miralax or fiber supplement due to recent insurance interruption. Reflux remains intermittent, triggered by most foods, with near-daily sx. Passing gas regularly. Epigastric pain persists, no new or worsening sx. Denies N/V, hematochezia, or melena. No recent hospitalizations, urgent care visits, or acute events reported. Denies recent dietary or medication changes except for above lapse. Now reports increased water intake. [facility] Medical History (Updated 11/10/24 @ 15:27 by Veda Gramajo CNP) Fatty liver Acid reflux Dysplasia of cervix, low grade (MARCUS 1) Uterine fibroid Constipation Surgical History Hx of myomectomy Hx of tubal ligation Hx of removal of cyst Family History Father Cancer Paternal Aunt Cancer Paternal Grandmother Cancer of abdominal wall Mother Uterus cancer Abdominal tumor Diabetes Ovarian cancer HTN (hypertension) Social History Household Members: None Housing: Apartment Alcohol intake: current Alcohol intake frequency: holidays/special occasions only Patient Tobacco Use Status: Never used Tobacco Current occupational status: employed 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 Sexual orientation: Straight/Heterosexual Gender identity: Female Review of Systems Const Reports as per HPI ENT Reports as per HPI Card Reports as per HPI Resp Reports as per HPI GI Reports as per HPI Reports as per HPI Physical Exam Vital Signs: Last Vital Signs Pulse 69 11/10/24 14:04 BP 134/61 11/10/24 14:04 Pulse Ox 98 11/10/24 14:04 Oxygen Delivery Method Room Air 11/10/24 14:04 BMI result Body Mass Index 35.8 Const General: healthy appearing, no acute distress and well developed Nutritional Appearance: average body habitus Orientation/consciousness: patient oriented x3 HEENT Head: Yes normal to inspection, Yes normocephalic and Yes atraumatic Face and sinus: Yes normal facial exam Eyes General: appearance normal, both eyes and all related structures Neck Neck: Yes normal visual inspection Resp Effort & Inspection: normal respiratory effort, able to speak in complete sentences, no tracheal deviation and symmetric chest movement Cardio Jugular venous distension: no JVD GI Inspection: Yes normal to inspection, No distended and Yes striae Palpation (GI): Soft to palpation, not firm, nontender and No hepatosplenomegaly present Auscultation: normal bowel sounds Neuro General: patient oriented x3 Gait exam (Neuro): Normal gait present Psych Appearance: grossly normal Mental Status: mental status grossly normal Speech and movement: Normal speech and movement present Affect: normal affect Attitude: cooperative Thought process: Normal thought process present Thought content: Normal thought content present Insight: Good insight present (Psych) Judgement: Good judgement present (Psych) Results Reviewed Results Reviewed: Date of Service: 09/21/24 Procedure(s): US abdomen complete Accession Number(s): [id number] cc: NOE SAINI METEOROLOGICAL EQUIPMENT REPAIRER; Veda Gramajo CNP~ CLINICAL HISTORY: R10.13 - Epigastric pain --- Additional Notes or Special Instructions: RUQ epigastric pain US abdomen complete Comparison: CT/SR - CT ABDOMEN PELVIS WITHOUT IV CONTRAST - 09/18/21 17:55 EDT Findings: The visualized pancreas is normal. The aorta and inferior vena cava are normal caliber. The liver is normal in size and increased in echotexture. There is no intrahepatic bile duct dilatation. The common duct is 5 mm in diameter. The gallbladder is normal. There is no sonographic Feng sign. The main portal vein is antegrade. The right kidney is 10 cm in length. The left kidney is 10.5 cm in length. The spleen is normal. No ascites. IMPRESSION: Mild hepatic steatosis. No acute process. This document has been electronically signed by: Rickie Burgos MD on 09/21/2024 12:53:56 Laboratory Tests 06/04/24 07/29/24 08/16/24 10:18 14:23 10:20 Total Bilirubin 0.4 AST 27 ALT 17 Alkaline Phosphatase 68 C-Reactive Protein 0.34 Total Protein 7.3 Albumin 4.2 TSH 0.89 1.53 Assessment & Plan Assessment & Plan (1) Constipation: Code(s): K59.00 - Constipation, unspecified Category: Medical Qualifiers: Constipation type: unspecified constipation type Qualified Code(s): K59.00 - Constipation, unspecified Plan: Unchanged, longstanding, aggravated by interruption in Miralax/fiber - Poor adherence due to insurance issues. Additional testing: - None at present. Medications: - Rx Miralax: resume 17g PO qd. - Fiber supplement, resume as prior. - Monitor for abdominal pain, bloating. Lifestyle Recommendations: - Reinforce high-fiber diet (legumes, fruits, veg, nuts, seeds), fluids >8c/day, regular activity. - Handout provided: high-fiber foods. Referrals / Coordination of Care: - None at this time. Follow-Up Plan: - Recheck in 3mo to assess symptom and bowel pattern response. (2) Acid reflux: Code(s): K21.9 - Gastro-esophageal reflux disease without esophagitis Category: Medical Qualifiers: Esophagitis presence: esophagitis presence not specified Qualified Code(s): K21.9 - Gastro-esophageal reflux disease without esophagitis Plan: Intermittent, nearly daily, likely aggravated by diet. - Did not continue omeprazole due to access; dietary triggers persist. Additional testing: - will consider upper GI series if symptoms persist Medications: - Omeprazole: resume as prescribed, 20mg PO qd. - Educate re: duration, sx monitoring (dysphagia, odynophagia, GI bleeding). Lifestyle Recommendations: - Avoid triggers (specific foods, overeating), continue small meals, remain upright post-prandially, minimize late meals. - Provided reflux education handout. Referrals / Coordination of Care: - None at this time. Follow-Up Plan: - Reassess reflux sx in 3mo or PRN if worsens. (3) Fatty liver: Code(s): K76.0 - Fatty (change of) liver, not elsewhere classified Category: Medical Plan: Stable, mild, no sign of progression/inflammation- US shows steatosis only; LFTs WNL. Additional testing: - A1C (to r/o prediabetes) and lipid panel recommended with PCP. Medications: - None specific to liver at present. Lifestyle Recommendations: - Emphasize weight reduction if overweight/central obesity; plant-rich/?heart- healthy? diet, regular exercise, avoid Hepatotoxins (ETOH, illicit drugs). - Provided general diet counseling (verbal and written). Referrals / Coordination of Care: - Advise PCP f/u for metabolic labs. Follow-Up Plan: - Monitor LFTs PRN Plan Follow-up in 3 months or sooner as needed Time: I spent a total of 20 minutes on the date of encounter which includes: Preparing to see the patient (reviewed previous documentation, test results and medical history) Performing a medically appropriate exam and/or evaluation Ordering medications, tests, and procedures Documenting clinical information in the health record Medications: Refilled methylcellulose (laxative) (Citrucel) 500 mg PO DAILY 90 tabs 1RF polyethylene glycol 3350 (Miralax) Mix 17G in 4 to 8 oz of water until dissolved and drink immediately 17 grams PO DAILY 100 ea 1RF omeprazole 20 mg PO DAILY 30 caps 5RF Coding Level of Care Code Established Pt Est Pt Level 3 (76159) Patient Type Established Diagnoses Constipation, unspecified constipation type K59.00 Constipation type: unspecified constipation type Gastroesophageal reflux disease, unspecified whether esophagitis present K21.9 Esophagitis presence: esophagitis presence not specified Fatty liver K76.0
--- OUTSIDE RECORDS SUMMARY | 2024-11-10 15:01 | XMS_ITS | Clinical Summary ---
Author Organization [employer] Address [address] [facility] [address] [place] [address] Care Team Providers Care Bank Accountant Name Role Phone Noe Saini Primary Care Provider [phone] Allergies No known active allergies Medications acetaminophen [...] [facility]. Prescribed Ambien 10 mg, Klonopin 1 mg 10/18/20 Seen at [facility]. Enlarged thyroid 12/26/2016 Overview (07/01/2022): Noted [...] Department Care Team Description 09/21/2024 Orders Only [facility] External Provider, [facility] 09/07/[address] [address] Denisa Christiansen CNM No Show 09/06/[address] [address] Noe Saini ANP Chart Prep 09/01/[address] [address] Noe Saini ANP No Show (Pt no show for sick on site/ ) 09/01/[address] [address] Noe Saini ANP Nurse Triage 08/25/[address] [address] Noe Saini ANP November recall from Last 3 Months Immunizations Immunization Administration [...] others, in a hotel, in a senior care, living outside on the street, on a [...] Description 11/15/2024 11:15 AM EDT Office Visit [facility] [address] [place] [address] Noe Saini ANP [address] [place] [address] Health Maintenance Due Date Last Done Comments Family Planning (PISQ) 10/07/1999 HPV Vaccines (1 - 3-dose series) 10/07/1999 Pap Smear 2005 Cervical Cancer Screening 2014 HPV/Cotest 2014 Mammogram 2024 COVID-19 Vaccine ( season) 2024 Influenza Vaccine (#1) 2024 , 01/31/2020, 12/24/2016, [...] EDT CBC Routine 08/16/2024 10:20 AM EDT from Last 3 Months Results * US Abdomen Complete (09/21/2024 12:53 PM EDT) Anatomical Region Laterality Modality Abdomen Ultrasound 09/21/2024 12:5 3 PM EDT Narrative 09/21/2024 12:56 PM EDT [place] [address] Ultrasound Report Signed Patient: Juany Harper MR#: [id number] : 1985 Acct:[id number] Age/Sex: 38 / F ADM Date: 09/21/24 Loc: HO.US Attending Dr: Veda Gramajo CNP Ordering Physician: Veda Gramajo CNP Date of Service: 09/21/24 Procedure(s): US abdomen complete Accession Number(s): [id number] cc: NOE SAINI ERGONOMIST; Veda Gramajo CNP CLINICAL HISTORY: R10.13 - [...] signed by Rickie Burgos MD in OV> 09/21/24 125 DD/ 125 TD/TT: 09/21/24 125 Laundry Assistant: Procedure Note Donotuseinterpreter, Image - 09/21/[address] [address] Ultrasound Report Signed Patient: Juany Harper MMR#: [id number] : 1985Acct:[id number] Age/Sex: 38 / FADM Date: 09/21/24 Loc: HO.US Attending Dr: Veda Gramajo CNP Ordering Physician: Veda Gramajo CNP Date of Service: 09/21/24 Procedure(s): US abdomen complete Accession Number(s): [id number] cc: NOE SAINI ERGONOMIST; Veda Gramajo CNP CLINICAL HISTORY: R10.13 - [...] signed by Rickie Burgos MD in OV> 09/21/24 125 DD/ 125 TD/TT: 09/21/24 1253 Laundry Assistant: [facility] External Provider IMG US PROCEDURES Edited Result - Final * Helicobacter pylori, Urea Breath Test (08/27/2024 12:30 PM EDT) H. pylori Breath Test Negative Negative [facility] Comment:Antimicrobials, prot on pump inhibitors and bismuthpreparations are known to suppress H. pylori. Ingestingthese medications within two weeks prior to performing thebreath test may produce negative test results. A positiveresult is still clinically valid. 08/27/2024 12:3 0 PM EDT 08/27/2024 4:42 PM EDT Generic External Data Provider LAB BODY FLUIDS A ND STOOLS ORDERABLES Final Result Performing Organization Address [facility] Co de Phone Number [facility] [address] [place] [phone] * Syphilis Screen (08/16/2024 10:20 AM EDT) Syphilis Screen Nonreactive Nonreactive [facility] 08/16/2024 10:2 0 AM EDT 08/16/2024 10:20 AM EDT Generic External Data Provider LAB BLOOD ORDERAB LES Final Result Performing Organization Address [facility] Co de Phone Number [facility] [address] [place] [phone] * Hepatitis C Ab (08/16/2024 10:20 AM EDT) Hepatitis C Antibody Nonreactive Nonreactive [facility] Comment:Antibodies to HCV no t detected; does not exclude early acuteHCV infection. 08/16/2024 10:2 0 AM EDT 08/16/2024 10:20 AM EDT Generic External Data Provider LAB BLOOD ORDERAB LES Final Result Performing Organization Address [facility]/ZIP Co de Phone Number [facility] [address] [place] [phone] * TSH with Reflex to Free T4 (08/16/2024 10:20 AM EDT) TSH reflex Free T4 1.53 0.32 - 4.0 uIU/mL [facility] 08/16/2024 10:2 0 AM EDT 08/16/2024 10:20 AM EDT Generic External Data Provider LAB BLOOD ORDERAB LES Final Result Performing Organization Address [facility]/ZIP Co de Phone Number [facility] [address] [place] [phone] * Hepatitis B surface antigen, EIA (08/16/2024 10:20 AM EDT) Pathologist [facility] Hepatitis B Surface Ag Negative Negative [facility] 08/16/2024 10:2 0 AM EDT 08/16/2024 10:20 AM EDT Generic External Data Provider LAB BLOOD ORDERAB LES Final Result Performing Organization Address [facility] Co de Phone Number [facility] [address] [place] [phone] * HIV-1/2 Antigen and Antibodies, Fourth Generation, with Reflexes (08/16/2024 10:20 AM EDT) HIV AB/AG Nonreactive Nonreactive [facility] Comment:HIV-1 p24 Ag and/or HIV-1/HIV-2 Ab not detected.A test result that is nonreactive does not exclude thepossibility of exposure to or infection with HIV-1 and/orHIV-2. Nonreactive results in this assay for individualswith prior exposure to HIV-1 and/or HIV-2 may be due toantigen and antibody levels that are below the limit ofdetection of this assay.The Gutierrez Alinity HIV Ag/Ab Combo assay result andsupplemental assay results should be interpreted inconjunction with the patient's clinical presentation,history and other laboratory results. If the results areinconsistent with clinical evidence, additional testing issuggested to confirm the result. 08/16/2024 10:2 0 AM EDT 08/16/2024 10:20 AM EDT us Generic External Data Provider LAB BLOOD ORDERAB LES Final Result [facility] [address] [place] [phone] * CBC (08/16/2024 10:20 AM EDT) White Blood Count 6.9 4.8 - 10.8 X10*3/uL [facility] Red Blood Count 4.92 4.20 - 5.50 X10*6/uL [facility] Hemoglobin 14.1 12.0 - 16.0 g/dl [facility] Hematocrit 43.0 37.0 - 47.0 % [facility] Mean Corpuscular Volume 87.4 80.0 - 98.0 fL [facility] Mean Corpuscular Hemoglobin 28.7 27.0 - 33.0 pg [facility] Mean Corpuscular HGB Conc 32.8 31.0 - 35.0 g/dl [facility] Red Cell Distribution Width 12.3 11.0 - 16.0 % [facility] Platelet Count 242 160 - 400 X10*3/uL [facility] Mean Platelet Volume 10.0 9.4 - 12.3 fL [facility] NRBC Pct Auto 0.0 0.0 - 0.2 /100WBC [facility] NRBC Abs Auto 0.000 0.0 - 0.012 X10*3/uL [facility] 08/16/2024 10:2 0 AM EDT 08/16/2024 10:20 AM EDT us Generic External Data Provider LAB BLOOD ORDERAB LES Final Result Performing Organization Address [facility] Co de Phone Number [facility] [address] [place] [phone] * hCG, Total, Quantitative (08/16/2024 10:20 AM EDT) HCG Quantitative <2 mIU/mL [facility] Comment:Weeks post LMP Appro ximate hCG(Last Menstrual Period) Range (mIU/ml)3 - 4 weeks 9 - 1304 - 5 weeks 75 - 2,6005 - 6 weeks 850 - 20,8006 - 7 weeks 4000 - 100,2007 - 12 weeks 11,500 - 289,19072 - 16 weeks 18,300 - 137,82672 - 29 weeks (2nd trimester) 1,400 - 53,68586 - 41 weeks (3rd trimester) 940 - [...] LES Final Result Performing Organization Address [facility] Co de Phone Number [facility] [address] [place] [address] [phone] from Last 3 Months Insurance [employer] C3 Care Teams Bank Accountant Relationship Specialty Start Date End Date Noe Saini ANP [address] [place] [phone] PCP - General Family Medicine 04/08/22
--- OUTSIDE RECORDS SUMMARY | 2024-11-10 15:01 | XMS_ITS | Encounter Summary ---
Author Organization [employer] Address [address] [facility] 7t [place] [address] Care Team Providers Care Biazzi Nitrator Operator Name Role Phone Nuzhat Shelton Primary Care Provider Reason for Visit * Reason Comments Med Refill Encounter Details Date Type Department Care Team ([facility] Contact Info) Description 07/16/2024 Refill [facility] [address] [place], [place] [phone] Nuzhat Shelton ANP [address] [place], [place] [phone] Rash Social History Tobacco Use Types Packs/Day [...] with others, in a hotel, in a fci, living outside on the street, on a [...] Description 11/15/2024 11:15 AM EDT Office Visit [facility] [address] [place] [address] Nuzhat Shelton ANP [address] [place] [address] documented as of this encounter Visit Diagnoses Diagnosis Rash Rash and other nonspecific skin eruption documented in this encounter Additional Health Concerns Assessment Noted Time PHQ-9 Depression Total Score: 0 07/16/19 25 2:29 PM EDT documented as of this encounter Care Teams Biazzi Nitrator Operator Relationship Specialty Start Date End Date Nuzhat Shelton ANP [address] [place] [phone] PCP - General Family Medicine 04/08/22 documented as of this encounter
--- OUTSIDE RECORDS SUMMARY | 2024-11-10 15:01 | XMS_ITS | Encounter Summary ---
Author Organization [employer] Address [address] [facility] [address] [place] [address] Care Team Providers Care Treatment Plant Mechanic Name Role Phone Nuzhat Shelton Primary Care Provider [phone] Reason for Visit * Reason Onset Date Comments Medication Question 05/14/2024 Encounter Details Date Type Department Care Team ([facility] st Contact Info) Description 05/14/2024 Telephone [facility] [address] [place] [address] Nuzhat Shelton ANP [address] [place] [address] Medication Question Social History Tobacco Use Types [...] like to loose weight. Please return call [phone] documented in this encounter Plan of Treatment Upcoming Encounters Date Type Department Care Team (Late st Contact Info) Description 11/15/2024 11:15 AM EDT Office Visit [facility] [address] [place] [phone] Nuzhat Shelton ANP [address] [place] [address] documented as of this encounter Visit Diagnoses Not on filedocumented in this encounter Additional Health Concerns Assessment Noted Time PHQ-9 Depression Total Score: 12 023 10:59 AM EDT documented as of this encounter Care Teams Treatment Plant Mechanic Relationship Specialty Start Date End Date Nuzhat Shelton ANP [address] [place] [phone] PCP - General Family Medicine 04/08/22 documented as of this encounter
== END 2024-11-10 14:41 | disposition home or self-care (01) ==
LOC: HO.HGI 13:45
PROVIDERS: PCP Nurse Practitioner Primary Care; Visit Provider Nurse Practitioner Family
DX: K59.00 Constipation, unspecified (principal); K21.9 Gastro-esophageal reflux disease without esophagitis; K76.0 Fatty (change of) liver, not elsewhere classified
CPT/HCPCS: 99213

== ENCOUNTER → 2024-11-10 13:44 | Outpatient (BNVA) | payer MEDICAID, SELFPAY | PROVIDERS: PCP Nurse Practitioner Primary Care; Visit Provider Nurse Practitioner Family | DX: K59.09 Other constipation (principal); K21.9 Gastro-esophageal reflux disease without esophagitis; K76.0 Fatty (change of) liver, not elsewhere classified | CPT/HCPCS: 99212 ==

== ENCOUNTER 2024-12-06 10:08 | Outpatient (AMB) | payer MEDICAID, SELFPAY ==
--- NOTE | 2024-12-06 10:18 | A.OFFVIS_ITS ---
Vital Signs 12/06/24 10:27 Height 5 ft 3 in Weight 208 lb BMI 36.8 BP 116/64 Intake Visit Reasons: 6wk IUD f/u Staff Cytotechnologist Required: Yes Staff Cytotechnologist Language: Executive Administrative Asst Services: Staff Cytotechnologist Present (in person) Staff Cytotechnologist Name: Renetta Ramirez Information Interpreted: non-clinical & clinical Sap Crm Developer: Sap Crm Developer Present (Renetta Martinesero GARO ) Accompanied by: Self / Same As Patient Allergies No Known Allergies Allergy (Verified 12/06/24 10:29) HPI Comments Details: Presenting for IUD check complaining of 7 lb weight gain since IUD insertion in requesting IUD removal PFSH Medical History Fatty liver Acid reflux Dysplasia of cervix, low grade (MARCUS 1) Uterine fibroid Constipation Surgical History Hx of myomectomy Hx of tubal ligation Hx of removal of cyst Family History Father Cancer Paternal Aunt Cancer Paternal Grandmother Cancer of abdominal wall Mother Uterus cancer Abdominal tumor Diabetes Ovarian cancer HTN (hypertension) Social History Household Members: None Housing: Apartment Alcohol intake: current Alcohol intake frequency: holidays/special occasions only Patient Tobacco Use Status: Never used Tobacco Current occupational status: employed 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 Sexual orientation: Straight/Heterosexual Gender identity: Female Review of Systems Const All systems reviewed & are unremarkable except as noted in HPI and below Physical Exam Vital Signs: Last Vital Signs BP 116/64 12/06/24 10:27 BMI result Body Mass Index 36.8 General: Yes no CVA tenderness External Female Exam: normal external appearance and normal appearance of the urethra Speculum Exam - Vagina: normal appearance of the vagina, normal palpation, no lesions and no masses Speculum Exam - Cervix: normal appearance of the cervix, normal palpation, no lesions, no masses, nontender and Other cervical findings present (IUD string in place) Bimanual exam- vagina & uterus: normal bimanual exam, normal palpation, uterine size normal, normal palpation, uterine shape normal, No Cervical tenderness present and non-tender Bimanual Exam- Adnexa, other: normal adnexae Back/Spine/Pelvis Back: no CVA tenderness Office Procedures IUD Insert/Removal Details Details: Counseling/Consent: After discussing with the patient the risks of the procedure including bleeding, infection, scar tissue formation, , possible injury to blood vessels or nerves, chronic arm pain, blood transfusion, and irregular unpredictable bleeding Alternative options were discussed with the patient including but not limited: Do nothing. The patient signed the consent and agreed with the plan; all questions answered. Urine test was done in the office and was negative Preop dx: Requesting IUD removal Op: IUD removal Post op dx: same EBL= 10 cc Procedure: The patient was put in the dorsal lithotomy position a speculum was inserted in the vagina the IUD thread identified. Using a Lucy clamp the thread was grasped and the IUD pulled out with no complications. The patient tolerated the procedure well and was advised to use a different method for contraception. Discharge instructions: Instructions were given to the pt to call if temp>100.4, abdominal pain heavy vaginal bleeding, n/v occur. The patient verbalized understanding and all questions answered. This note was generated with a voice recognition program. Some errors may have been overlooked during the review of this note. Sometimes these errors may affect the content or meaning of a given sentence. 54974-AZI Removal Procedure code (CPT) selection complete Results AMB Test Urine AMB Test Urine Negative Last Edit by Renetta Emery CMA on 10:44 Results Reviewed Results Reviewed: Laboratory Last Values Tst Clinic Negative 12/06/24 10:37 Assessment & Plan Assessment & Plan (1) Encounter for IUD removal: Code(s): Z30.432 - Encounter for removal of intrauterine contraceptive device Category: Medical Plan: Mirena IUD removed, see procedure note (2) Abnormal uterine bleeding (AUB): Code(s): N93.9 - Abnormal uterine and vaginal bleeding, unspecified Category: Medical Plan: Discussed with the patient the results of the work up done and options of t reatment including BCP's, cyclic Provera endometrial ablation and hysterectomy. All pros, cons, risks and benefits if each option was discussed with the patient and the patient decided to think about it and get back to us. All questions answered the patient verbalized understanding. Orders: Orders AMB HCG Urine Test Today Z32.02 - Encounter for test, result negative Coding Level of Care Code Est Pt Level 3 (36882) Procedure Only Diagnoses Encounter for IUD removal Z30.432 Abnormal uterine bleeding (AUB) N93.9 CPT Codes Details - CPT: 51870-VUE Removal ([id number])
[2024-12-06 10:27] VITALS: BP 116/64; BMI 36.8
--- OUTSIDE RECORDS SUMMARY | 2024-12-06 12:12 | XMS_ITS | Clinical Summary ---
Author Organization [employer] Address [address] [facility] [address] [place] [address] Care Team Providers Care Client Relationship Manager Name Role Phone Noe Saini Primary Care Provider [phone] Allergies No known active allergies Medications acetaminophen [...] 1 mo 30 g 06/05/19 25 Active esomeprazole (NexIUM) [address] capsuleIndicati ons:Gastroesoph ageal reflux disease, unspecified whether esophagitis present 1 capsule once daily before breakfast 90 capsule 1 06/05/19 25 Active albuterol (Ventolin HFA) 108 (90 Base) MCG/ACT inhalerIndicati ons:Moderate asthma without complication, unspecified whether persistent INHALE 2 PUFFS BY MOUTH EVERY 4 HOURS NEEDED FOR WHEEZING OR SHORTNESS OF BREATH 18 g 11/17/19 25 Active albuterol 108 (90 Base) MCG/ACT inhalerIndicati ons:Moderate asthma without complication, unspecified whether persistent INHALE 2 PUFFS BY MOUTH EVERY 4 HOURS IF NEEDED 18 g 06/05/19 25 025 Discontinued Active Problems Problem Noted Date Diagnosed Date [...] [facility]. Prescribed Ambien 10 mg, Klonopin 1 mg 10/18/20 Seen at [facility]. Enlarged thyroid 12/26/2016 Overview (07/01/2022): Noted by [...] Encounters Date Type Department Care Team Description 11/25/2024 Telephone [facility] [address] [place], [place] [phone] Noe Saini, PAVEL Nurse Triage 11/16/2024 Refill [facility] [address] [place], [place] [phone] Noe Saini, PAVEL Moderate asthma without complication, unspecified whether persistent 11/12/2024 Telephone [facility] [address] [place], [place] [phone] Isha Montelongo [place] 11/12/2024 Telephone [facility] [address] [place], [place] [phone] Noe Saini ANP chartprep 09/21/2024 Orders Only [facility] External Provider, [facility] 09/07/2024 Telephone [facility] [address] [place] [address] Denisa Christiansen, APARNA No Show 09/06/2024 Telephone [facility] [address] [place] [address] Noe Saini ANP Chart Prep from Last 3 Months Immunizations Immunization Administration [...] with others, in a hotel, in a correction, living outside on the street, on a [...] Care Team (Late st Contact Info) Description 01/14/2025 11:15 AM EST Office Visit [facility] [address] [place] [address] Noe Saini ANP [address] [place], [place] [phone] Health Maintenance Due Date Last Done Comments [...] COMPLETE Routine 09/21/2024 1 2:53 PM EDT HEPATITIS C ANTIBODY Routine 08/16/2024 10:20 AM EDT HIV 1/2 ANTIGEN/ANTIBODY, FOURTH GENERATION W/RFL Routine 08/16/2024 10:20 AM EDT from Last 3 Months or Most Recently Relevant to Health Maintenance Results * US Abdomen Complete (09/21/2024 12:53 PM EDT) Anatomical Region Laterality Modality Abdomen Ultrasound 09/21/2024 12:5 3 PM EDT Narrative 09/21/2024 12:56 PM EDT [place] [address] Ultrasound Report Signed Patient: Juany Harper MR#: [id number] : 1985 Acct:[id number] Age/Sex: 38 / F ADM Date: 09/21/24 Loc: HO.US Attending Dr: Veda Gramajo CNP Ordering Physician: Veda Gramajo CNP Date of Service: 09/21/24 Procedure(s): US abdomen complete Accession Number(s): [id number] cc: NOE SAINI SEAMING MACHINE OPERATOR; Veda Gramajo CNP CLINICAL HISTORY: R10.13 - [...] by Rickie Burgos MD in OV> 09/21/24 1255 DD/ 125 TD/TT: 09/21/241252 Wire Straightening Machine Operator: Procedure Note Donotuseinterpreter, Image - 09/21/[address] [address] Ultrasound Report Signed Patient: Juany Harper MMR#: [id number] : 1985Acct:[id number] Age/Sex: 38 / FADM Date: 09/21/24 Loc: HO.US Attending Dr: Veda Gramajo CNP Ordering Physician: Veda Gramajo CNP Date of Service: 09/21/24 Procedure(s): US abdomen complete Accession Number(s): [id number] cc: NOE SAINI SEAMING MACHINE OPERATOR; Veda Gramajo CNP CLINICAL HISTORY: R10.13 - [...] in OV> 09/21/241254 DD/ 52 TD/TT: 09/21/241252 Wire Straightening Machine Operator: us [facility] External Provider IMG US PROCEDURES Edited Result - Final * Hepatitis C Ab (08/16/2024 10:20 AM EDT) Hepatitis C Antibody Nonreactive Nonreactive [facility] Comment:Antibodies to HCV no t detected; does not exclude early acuteHCV infection. 08/16/2024 10:2 0 AM EDT 08/16/2024 10:20 AM EDT us Generic External Data Provider LAB BLOOD ORDERAB LES Final Result Performing Organization Address City/[facility]/ZIP Co de Phone Number [facility] [address] [place] [address] [phone] * HIV-1/2 Antigen and Antibodies, Fourth Generation, with Reflexes (08/16/2024 10:20 AM EDT) Pathologist [facility] HIV AB/AG Nonreactive Nonreactive [facility] Comment:HIV-1 p24 Ag and/or HIV-1/HIV-2 Ab not detected.A test result that is nonreactive does not exclude thepossibility of exposure to or infection with HIV-1 and/orHIV-2. Nonreactive results in this assay for individualswith prior exposure to HIV-1 and/or HIV-2 may be due toantigen and antibody levels that are below the limit ofdetection of this assay.The [employer] HIV Ag/Ab Combo assay result andsupplemental assay results should be interpreted inconjunction with the patient's clinical presentation,history and other laboratory results. If the results areinconsistent with clinical evidence, additional testing issuggested to confirm the result. 08/16/2024 10:2 0 AM EDT 08/16/2024 10:20 AM EDT us Generic External Data Provider LAB BLOOD ORDERAB LES Final Result Performing Organization Address City/[facility]/ZIP Co de Phone Number [facility] [address] [place] [address] [phone] from Last 3 Months or Most Recently Relevant to Health Maintenance Insurance [facility] C3 Care Teams Client Relationship Manager Relationship Specialty Start Date End Date Noe Saini ANP [address] [place] [address] PCP - General Family Medicine 04/08/22
--- OUTSIDE RECORDS SUMMARY | 2024-12-06 12:12 | XMS_ITS | Encounter Summary ---
Author Organization [employer] Address [address] [facility] 7t [place] [address] Care Team Providers Care Hooker Inspector Name Role Phone Nuzhat Shelton Primary Care Provider [phone] Reason for Visit * Reason Onset Date Comments Medication Question 05/14/2024 Encounter Details Date Type Department Care Team ([facility] st Contact Info) Description 05/14/2024 Telephone [facility] [address] [place] [address] Nuzhat Shelton ANP [address] [place] [address] Medication Question Social History Tobacco Use Types [...] like to loose weight. Please return call [phone] documented in this encounter Plan of Treatment Upcoming Encounters Date Type Department Care Team (Late st Contact Info) Description 01/14/2025 11:15 AM EST Office Visit [facility] [address] [place] [address] Nuzhat Shelton ANP [address] [place] [address] documented as of this encounter Visit Diagnoses Not on filedocumented in this encounter Additional Health Concerns Assessment Noted Time PHQ-9 Depression Total Score: 12 05/24/ 023 10:59 AM EDT documented as of this encounter Care Teams Hooker Inspector Relationship Specialty Start Date End Date Nuzhat Shelton ANP [address] [place] [phone] PCP - General Family Medicine 04/08/22 documented as of this encounter
--- OUTSIDE RECORDS SUMMARY | 2024-12-06 12:12 | XMS_ITS | Encounter Summary ---
Author Organization [employer] Address [address] [facility] 7t [place] [address] Care Team Providers Care E Commerce Merchant Name Role Phone Nuzhat Shelton Primary Care Provider [phone] Reason for Visit * Reason Comments Med Refill Encounter Details Date Type Department Care Team ([facility] Contact Info) Description 07/16/2024 Refill [facility] [address] [place], [place] [phone] Nuzhat Shelton ANP [address] [place], [place] [phone] Rash Social History Tobacco Use Types Packs/Day [...] with others, in a hotel, in a usp, living outside on the street, on a [...] Description 01/14/2025 11:15 AM EST Office Visit [facility] [address] [place] [address] Nuzhat Shelton ANP [address] [place] [address] documented as of this encounter Visit Diagnoses Diagnosis Rash Rash and other nonspecific skin eruption documented in this encounter Additional Health Concerns Assessment Noted Time PHQ-9 Depression Total Score: 0 07/16/19 25 2:29 PM EDT documented as of this encounter Care Teams E Commerce Merchant Relationship Specialty Start Date End Date Nuzhat Shelton ANP [address] [place] [address] PCP - General Family Medicine 04/08/22 documented as of this encounter
== END 2024-12-06 10:47 | disposition home or self-care (01) ==
LOC: HO.HWS 10:08
PROVIDERS: PCP Nurse Practitioner Primary Care; Visit Provider Obstetrics & Gynecology
DX: Z30.432 Encounter for removal of intrauterine contraceptive device (principal); N93.9 Abnormal uterine and vaginal bleeding, unspecified; Z32.02 Encounter for pregnancy test, result negative
CPT/HCPCS: 58301; 99213

== ENCOUNTER → 2024-12-06 10:08 | Outpatient (BNVA) | payer MEDICAID, SELFPAY | PROVIDERS: PCP Nurse Practitioner Primary Care; Visit Provider Obstetrics & Gynecology | DX: Z30.432 Encounter for removal of intrauterine contraceptive device (principal); Z32.02 Encounter for pregnancy test, result negative; N93.9 Abnormal uterine and vaginal bleeding, unspecified | CPT/HCPCS: 58301; 81025; 99212 ==

== ENCOUNTER 2025-01-12 14:13 | Outpatient (AMB) | payer MEDICAID, SELFPAY ==
--- NOTE | 2025-01-12 14:34 | MHC.OFFVIS ---
Vital Signs 01/12/25 14:35 Height 5 ft 3 in Weight 205 lb BMI 36.3 BP 156/68 H Blood Pressure Location Lt brachial Position Sitting Pulse 75 Pulse Oximetry (%) 98 Oxygen Delivery Method Room Air Intake Visit Reasons: 3m Intake Note: Patient 3 month follow up for Acid reflux Patient cc: RLQ pain, acid reflux on and off. Forge Utility Worker Required: No Accompanied by: Self / Same As Patient Allergies No Known Allergies Allergy (Verified 01/12/25 14:34) HPI HPI 3m: Details: Patient is a 38-year-old female with PMH of obesity, constipation, GERD and fatty liver. F/u for chronic constipation and assessment of acute right groin/lower abdominal pain. Pt states resumption of Miralax and fiber supplements has resulted in daily, painless bowel movements, without constipation or need for additional agents. No episodes of reflux since last f/u, taking omeprazole daily. Pt describes new right groin/lower abdominal pain, coinciding with recent menstrual cycle, onset ~5 days ago, continuous, worsened with palpation. Has not taken analgesics per pt choice. No reported N/V, GI bleeding, fever, or obstructive symptoms. Occasional transient abdominal bloating/hardness noted during menses. No hospitalizations or urgent visits since last encounter. [facility] Medical History (Updated 01/12/25 @ 15:38 by Veda Gramajo CNP) Right lower quadrant abdominal pain Fatty liver Acid reflux Dysplasia of cervix, low grade (MARCUS 1) Uterine fibroid Constipation Surgical History Hx of myomectomy Hx of tubal ligation Hx of removal of cyst Family History Father Cancer Paternal Aunt Cancer Paternal Grandmother Cancer of abdominal wall Mother Uterus cancer Abdominal tumor Diabetes Ovarian cancer HTN (hypertension) Social History Household Members: None Housing: Apartment Alcohol intake: current Alcohol intake frequency: holidays/special occasions only Patient Tobacco Use Status: Never used Tobacco Current occupational status: employed 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 Sexual orientation: Straight/Heterosexual Gender identity: Female Review of Systems Const Reports as per HPI ENT Reports as per HPI Card Reports as per HPI Resp Reports as per HPI GI Reports as per HPI Reports as per HPI Physical Exam Vital Signs: Last Vital Signs Pulse 75 01/12/25 14:35 BP 156/68 H 01/12/25 14:35 Pulse Ox 98 01/12/25 14:35 Oxygen Delivery Method Room Air 01/12/25 14:35 BMI result Body Mass Index 36.3 Const General: healthy appearing, no acute distress and well developed Nutritional Appearance: average body habitus Orientation/consciousness: patient oriented x3 HEENT Head: Yes normal to inspection, Yes normocephalic and Yes atraumatic Face and sinus: Yes normal facial exam Eyes General: appearance normal, both eyes and all related structures Neck Neck: Yes normal visual inspection Resp Effort & Inspection: normal respiratory effort, able to speak in complete sentences, no tracheal deviation and symmetric chest movement Cardio Jugular venous distension: no JVD GI Inspection: Yes normal to inspection, No distended, Yes obesity and Yes striae Palpation (GI): Soft to palpation, not firm, Tenderness to palpation present (GI) in the RLQ; not at McBurney's point and with no rebound tenderness and No hepatosplenomegaly present Auscultation: normal bowel sounds Neuro General: patient oriented x3 Gait exam (Neuro): Normal gait present Psych Appearance: grossly normal Mental Status: mental status grossly normal Speech and movement: Normal speech and movement present Affect: normal affect Attitude: cooperative Thought process: Normal thought process present Thought content: Normal thought content present Insight: Good insight present (Psych) Judgement: Good judgement present (Psych) Assessment & Plan Assessment & Plan (1) Constipation: Code(s): K59.00 - Constipation, unspecified Category: Medical Qualifiers: Constipation type: unspecified constipation type Qualified Code(s): K59.00 - Constipation, unspecified Plan: Improved, daily BMs with current regimen; no ongoing symptoms. Additional Testing: None indicated at this time. Medications: Continue Miralax PRN, fiber supplementation. Lifestyle Recommendations: Maintain high fiber diet, adequate fluids. Referrals / Coordination of Care: None needed. F/u Plan: Continue regimen, reassess prn. (2) Acid reflux: Code(s): K21.9 - Gastro-esophageal reflux disease without esophagitis Category: Medical Qualifiers: Esophagitis presence: esophagitis presence not specified Qualified Code(s): K21.9 - Gastro-esophageal reflux disease without esophagitis Plan: Stable, asymptomatic. Controlled on current regimen. Additional Testing: None indicated. Medications: Continue omeprazole 20mg qd. Lifestyle Recommendations: Continue previous recommendations. Referrals / Coordination of Care: None needed. F/u Plan: As above. (3) Right lower quadrant abdominal pain: Code(s): R10.31 - Right lower quadrant pain Category: Medical Plan: New onset, mild-moderate, x5 days. Localization and lack of GI red flags suggest possible gynecologic source (fibroids, ovary) or MSK; pain not severe, lacks features of appy, obstruction, gallbladder pathology. UTD on cervical CA per pt. - Additional Testing: If sx persist >1?2 wks or worsen, consider abdominopelvic CT for further evaluation. - Medications: Trial acetaminophen 1000mg q6h PRN; heat application to area. - Lifestyle Recommendations: Rest PRN, monitor for triggers; note any correlation with cycles. - Referrals / Coordination of Care: If sx persist, construction electrician evaluation for fibroids and other pelvic pathology may be warranted. - F/u Plan: Monitor sx. ER visit for fever >=00.4?F, N/V, severe pain, GI bleeding, or worsening sx GERD Plan Follow-up in 6 months or sooner as needed Time: I spent a total of 22 minutes on the date of encounter which includes: Preparing to see the patient (reviewed previous documentation, test results and medical history) Performing a medically appropriate exam and/or evaluation Ordering medications, tests, and procedures Documenting clinical information in the health record Coding Level of Care Code Established Pt Est Pt Level 3 (28286) Patient Type Established Diagnoses Constipation, unspecified constipation type K59.00 Constipation type: unspecified constipation type Gastroesophageal reflux disease, unspecified whether esophagitis present K21.9 Esophagitis presence: esophagitis presence not specified Right lower quadrant abdominal pain R10.31
[2025-01-12 14:35] VITALS: BP 156/68; PULSE 75; O2SAT 98; BMI 36.3
--- OUTSIDE RECORDS SUMMARY | 2025-01-12 17:03 | XMS_ITS | Encounter Summary ---
Author Organization [employer] Address [address] [facility] 7t [place] [address] Care Team Providers Care Learning Operations Specialist Name Role Phone Nuzhat Shelton Primary Care Provider [phone] Reason for Visit * Reason Onset Date Comments chart prep 01/12/2025 Encounter Details Date Type Department Care Team ([facility] st Contact Info) Description 01/12/2025 Telephone [facility] [address] [place] [address] Nuzhat Shelton ANP [address] [place] [address] chart prep Social History Tobacco Use Types Packs/Day Years [...] encounter Miscellaneous Notes * Telephone Encounter - Lacy Vasquez [place] - 01/12/2025 11:27 AM EST Chart Prep Labs: done Images: done Referrals: complete Vaccines due: Covid, Flu, and HPV Screenings: mammogram and pap smear Overdue care gaps: None documented in this encounter Plan of Treatment Upcoming Encounters Date Type Department Care Team (Late st Contact Info) Description 01/14/2025 11:15 AM EST Office Visit [facility] [address] [place] [address] Nuzhat Shelton ANP [address] [place] [address] documented as of this encounter Visit Diagnoses Not on filedocumented in this encounter Additional Health Concerns Assessment Noted Time PHQ-9 Depression Total Score: 0 07/16/19 25 2:29 PM EDT documented as of this encounter Care Teams Learning Operations Specialist Relationship Specialty Start Date End Date Nuzhat Shelton ANP [address] [place] [address] PCP - General Family Medicine 04/08/22 documented as of this encounter
--- OUTSIDE RECORDS SUMMARY | 2025-01-12 17:03 | XMS_ITS | Encounter Summary ---
Author Organization [employer] Address [address] [facility] [address]t [place] [address] Care Team Providers Care Specimen Technician Name Role Phone Nuzhat Shelton Primary Care Provider [phone] Reason for Visit * Reason Comments Med Refill Encounter Details Date Type Department Care Team ([facility] Contact Info) Description 07/16/2024 Refill [facility] [address] [place], [place] [phone] Nuzhat Shelton ANP [address] [place], [place] [phone] Rash Social History Tobacco Use Types Packs/Day [...] Description 01/14/2025 11:15 AM EST Office Visit [facility] [address] [place] [address] Nuzhat Shelton ANP [address] [place] [address] documented as of this encounter Visit Diagnoses Diagnosis Rash Rash and other nonspecific skin eruption documented in this encounter Additional Health Concerns Assessment Noted Time PHQ-9 Depression Total Score: 0 07/16/19 25 2:29 PM EDT documented as of this encounter Care Teams Specimen Technician Relationship Specialty Start Date End Date Nuzhat Shelton ANP [address] [place] [address] PCP - General Family Medicine 04/08/22 documented as of this encounter
--- OUTSIDE RECORDS SUMMARY | 2025-01-12 17:03 | XMS_ITS | Encounter Summary ---
Author Organization [employer] Address [address] [facility] [address] [place] [address] Care Team Providers Care Reconciliation Accountant Name Role Phone Nuzhat Shelton Primary Care Provider [phone] Reason for Visit * Reason Onset Date Comments Medication Question 05/14/2024 Encounter Details Date Type Department Care Team ([facility] st Contact Info) Description 05/14/2024 Telephone [facility] [address] [place] [address] Nuzhat Shelton ANP [address] [place] [address] Medication Question Social History Tobacco Use Types [...] like to loose weight. Please return call [phone] documented in this encounter Plan of Treatment Upcoming Encounters Date Type Department Care Team (Late st Contact Info) Description 01/14/2025 11:15 AM EST Office Visit [facility] [address] [place] [address] Nuzhat Shelton ANP [address] [place] [address] documented as of this encounter Visit Diagnoses Not on filedocumented in this encounter Additional Health Concerns Assessment Noted Time PHQ-9 Depression Total Score: 12 05/24/ 023 10:59 AM EDT documented as of this encounter Care Teams Reconciliation Accountant Relationship Specialty Start Date End Date Nuzhat Shelton ANP [address] [place] [phone] PCP - General Family Medicine 04/08/22 documented as of this encounter
--- OUTSIDE RECORDS SUMMARY | 2025-01-12 17:03 | XMS_ITS | Clinical Summary ---
Author Organization [employer] Address [address] [facility] 7[address] [place] [address] Care Team Providers Care Biodiesel Technology Manager Name Role Phone Nuzhat Shelton Primary Care Provider Allergies No known active allergies Medications acetaminophen [...] For 1 mo 30 g 5 Active esomeprazole (NexIUM) [address] capsuleIndicatio ns:Gastroesophag eal reflux disease, unspecified whether esophagitis present 1 capsule once daily before breakfast 90 capsule 1 5 Active albuterol (Ventolin HFA) 108 (90 Base) MCG/ACT inhalerIndicatio ns:Moderate asthma without complication, unspecified whether persistent INHALE 2 PUFFS BY MOUTH EVERY 4 HOURS NEEDED FOR WHEEZING OR SHORTNESS OF BREATH 18 g 5 Active Active Problems Problem Noted Date [...] [facility] [place]. Prescribed Ambien 10 mg, Klonopin 1 mg 10/18/20 Seen at [facility]. Enlarged thyroid 12/26/2016 Overview (07/01/2022): Noted by [...] Encounters Date Type Department Care Team Description 01/12/2025 Telephone [facility] [address] [place] [phone] Nuzhat Shelton ANP chart prep 11/25/2024 Telephone [facility] [address] [place] [phone] Nuzhat Shelton ANP Nurse Triage 11/16/2024 Refill [facility] [address] [place] [phone] Nuzhat Shelton ANP Moderate asthma without complication, unspecified whether persistent 11/12/2024 Telephone [facility] [address] [place] [phone] Isha Montelongo [place] 11/12/2024 Telephone [facility] [address] [place] [phone] Nuzhat Shelton ANP chartprep from Last 3 Months Immunizations Immunization Administration [...] with others, in a hotel, in a retirement, living outside on the street, on a [...] Description 01/14/2025 11:15 AM EST Office Visit [facility] [address] [place], [place] [phone] Nuzhat Shelton ANP [address] [place] [address] Health Maintenance Due Date Last Done Comments [...] this topic Meningococcal Vaccine Aged Out No sanrda brandon eligible based on patient's age to complete this topic RSV under 20 months Aged Out No longe r eligible based on patient's age to complete this topic Rotavirus Vaccines Aged Out No longer eligible based on patient's age to complete this topic Procedures Procedure Name Priority Date/Time Associated Diagnosis Comments HEPATITIS C ANTIBODY Routine 08/16/2024 10:20 AM EDT HIV 1/2 ANTIGEN/ANTIBODY, FOURTH GENERATION W/RFL Routine 08/16/2024 10:20 AM EDT from Last 3 Months or Most Recently Relevant to Health Maintenance Results * Hepatitis C Ab (08/16/2024 10:20 AM EDT) Hepatitis C Antibody Nonreactive Nonreactive [facility] Comment:Antibodies to HCV no t detected; does not exclude early acuteHCV infection. 08/16/2024 10:2 0 AM EDT 08/16/2024 10:20 AM EDT us Generic External Data Provider LAB BLOOD ORDERAB LES Final Result Performing Organization Address City/[facility]/ZIP Co de Phone Number [facility] [address] [place] [address] [phone] * HIV-1/2 Antigen and Antibodies, Fourth Generation, with Reflexes (08/16/2024 10:20 AM EDT) HIV AB/AG Nonreactive Nonreactive [facility] Comment:HIV-1 p24 Ag and/or HIV-1/HIV-2 Ab not detected.A test result that is nonreactive does not exclude thepossibility of exposure to or infection with HIV-1 and/orHIV-2. Nonreactive results in this assay for individualswith prior exposure to HIV-1 and/or HIV-2 may be due toantigen and antibody levels that are below the limit ofdetection of this assay.The [employer] HIV Ag/Ab Combo assay result andsupplemental assay results should be interpreted inconjunction with the patient's clinical presentation,history and other laboratory results. If the results areinconsistent with clinical evidence, additional testing issuggested to confirm the result. 08/16/2024 10:2 0 AM EDT 08/16/2024 10:20 AM EDT us Generic External Data Provider LAB BLOOD ORDERAB LES Final Result Performing Organization Address City/[facility]/ZIP Co de Phone Number [facility] [address] [place] [address] [phone] from Last 3 Months or Most Recently Relevant to Health Maintenance Insurance [facility] C3 Care Teams Biodiesel Technology Manager Relationship Specialty Start Date End Date Nuzhat Shelton ANP [address] [place] [phone] PCP - General Family Medicine 04/08/22
== END 2025-01-12 15:35 | disposition home or self-care (01) ==
LOC: HO.HGI 14:14
PROVIDERS: PCP Nurse Practitioner Primary Care; Visit Provider Nurse Practitioner Family
DX: K59.00 Constipation, unspecified (principal); K21.9 Gastro-esophageal reflux disease without esophagitis; R10.31 Right lower quadrant pain
CPT/HCPCS: 99213

== ENCOUNTER → 2025-01-12 14:13 | Outpatient (BNVA) | payer MEDICAID, SELFPAY | PROVIDERS: PCP Nurse Practitioner Primary Care; Visit Provider Nurse Practitioner Family | DX: K59.09 Other constipation (principal); K21.9 Gastro-esophageal reflux disease without esophagitis; R10.31 Right lower quadrant pain; Z79.899 Other long term (current) drug therapy | CPT/HCPCS: 99212 ==